=== PATIENT | male | born 1935 | race Caucasian/White ===

== ENCOUNTER 2016-08-19 12:55 | Inpatient (IN) | payer MEDICARE, BC ==
[~2016-08-19] VITALS: Ht 175.3 cm; Wt 65.9 kg
[2016-08-19] VITALS (9 sets, daily range): BP systolic 105–136; BP diastolic 70–79; PULSE 85–88; RESP 14–18; TEMP 97.6–98.6; O2SAT 95–100
[~2016-08-19 12:55] MED LIST: ACIP20TA6 OR; ASPI81TA82 PO; BETH25TA PO; COLC1TAB7 PO; LISI-363 PO; PRED1 PO; PRED5TAB PO; TAMS0.4C67 PO; TRAM50TA PO; ULTR37.57 PO
[2016-08-19] MEDS ORDERED: SODIUM CHLOR 0.9% 1000 ML INJ 1,000 ML IV ONE (13:02)
--- NOTE | 2016-08-19 13:22 | RADRPT ---
EXAM DATE/TIME: 08/19/2016 12:59 [place] COMPARISON: No previous studies available for comparison. INDICATIONS : Congestion, shortness of breath with wheezing. MEDICAL HISTORY : Congestive heart failure. SURGICAL HISTORY : None. ENCOUNTER: Initial ACUITY: 3 days PAIN SCORE: 0/10 LOCATION: Bilateral chest FINDINGS: A single view of the chest demonstrates the lungs to be symmetrically aerated without evidence of mas s, infiltrate or effusion. The cardiomediastinal contours are unremarkable. Osseous structures are intact with significant arthritis of left acromioclavicular joint and impressive chondrocalcinosis. CONCLUSION: Normal examination. Bjorn Palma MD on August 19, 2016 at 13:21 Board Certified Radiologist. This report was verified electronically.
[2016-08-19 13:35] LABS: AUTOMATED NEUTROPHIL # 14.1 TH/MM3 (1.8-7.7); BASOPHIL % 0.2 % (0.0-2.0); EOSINOPHIL # 0.7 TH/MM3 (0-0.4); EOSINOPHIL % 3.9 % (0.0-4.0); HEMATOCRIT 38.1 % (39.0-51.0); HEMO FLAGS DIFF FINAL; LYMPH % 6.3 % (9.0-44.0); LYMPHOCYTE # 1.1 TH/MM3 (1.0-4.8); MEAN CELL VOLUME 90.6 FL (80.0-100.0); MEAN CORPUSCULAR HEMOGLOBIN 30.1 PG (27.0-34.0); MEAN CORPUSCULAR HGB CONC 33.2 % (32.0-36.0); NEUT % 80.6 % (16.0-70.0); PLATELET COUNT 227 TH/MM3 (150-450); RED CELL DISTRIBUTION WIDTH 16.2 % (11.6-17.2); WHITE BLOOD COUNT 17.4 TH/MM3 (4.0-11.0)
[2016-08-19 13:41] LABS: APTT (PATIENT) 32.9 SEC (24.3-30.1); INTERNATIONAL NORMALIZED RATIO 1.1 RATIO; PROTHROMBIN TIME - PATIENT 12.7 SEC (9.8-11.6)
[2016-08-19 13:53] LABS: ANION GAP 11 MEQ/L (5-15); AST (GOT) 25 U/L (15-37); BLOOD UREA NITROGEN 23 MG/DL (7-18); CHLORIDE 106 MEQ/L (98-107); GLOMERULAR FILTRATION RATE 64 ML/MIN (>89); MAGNESIUM 1.8 MG/DL (1.5-2.5); POTASSIUM 3.7 MEQ/L (3.5-5.1); SODIUM (NA) 141 MEQ/L (136-145)
[2016-08-19 13:58] LABS: ALKALINE PHOSPHATASE 91 U/L (45-117); ALT (GPT) 21 U/L (12-78); CREATINE KINASE 128 U/L (39-308)
[2016-08-19 14:15] LABS: CKMB 1.5 NG/ML (0.5-3.6)
[2016-08-19 14:26] LABS: BLOOD, URINE NEG (NEG); GLUCOSE,URINE NEG (NEG); KETONE, URINE NEG (NEG); NITRITE,URINE NEG (NEG); PH, URINE 5.5 (5.0-8.5); SQUAMOUS EPITHELIAL CELL URINE <1 /hpf (0-5); URINE COLOR YELLOW (YELLW/STRAW)
[2016-08-19] MEDS ORDERED: D31000CA (14:26)
[2016-08-19] MEDS ORDERED: PROT40TA PO (14:26)
[2016-08-19] MEDS ORDERED: MULT-65 PO (14:26)
[2016-08-19] MEDS ORDERED: ATOR10TA15 PO (14:26)
[2016-08-19] MEDS ORDERED: CLOP75TA PO (14:26)
[2016-08-19] MEDS ORDERED: NYST15T TOPICAL (14:26)
[2016-08-19] MEDS ORDERED: DULC100C PO (14:26)
[2016-08-19] MEDS ORDERED: CARB25TA9 PO (14:26)
[2016-08-19] MEDS ORDERED: DEXT1CAP5 PO (14:26)
[2016-08-19] MEDS ORDERED: ACET1CAP18 PO (14:26)
[2016-08-19] MEDS ORDERED: MILKSUS PO (14:26)
[2016-08-19 14:29] LABS: COMMENT (UR) CATH-CULT NOT IND; CULTURE IF INDICATED CATH CULTURE NOT IND
--- NOTE | 2016-08-19 14:36 | PD ---
HPI Chief Complaint: General Weakness Time Seen by Provider: 13:02 Travel History International Travel<30 days: No Contact w/Intl Traveler<30days: No Traveled to known affect area: No History of Present Illness HPI 80-year-old male presents with generalized weakness and cough. He is a poor historian and history is limited. Records state that he has also had increasing dysphasia. His records show blood work from a couple days ago with hypoglycemia 49 and he states he is not a diabetic. He does deny any chest pain or other concurrent complaints but history is limited. PFSH Past Medical History Arthritis: Yes (osteo and gout) Blood Disorders: No Anxiety: Yes Depression: Yes Cancer: No Cardiovascular Problems: No Cerebrovascular Accident: Yes Diabetes: No Diminished Hearing: No Endocrine: No Gastrointestinal Disorders: Yes GERD: Yes Glaucoma: No Gout: Yes (SUDO GOUT) Genitourinary: No Hepatitis: No Hiatal Hernia: Yes Hypertension: Yes Immune Disorder: No Neurologic: No Parkinson's Disease: Yes Psychiatric: Yes Reproductive: No Respiratory: No Immunizations Current: Yes Thyroid Disease: No Past Surgical History Abdominal Surgery: Yes (right inquinal hernia repair) Cholecystectomy: Yes Eye Surgery: Yes (b/l cataracts) Oral Surgery: Yes (tonsillectomy) Pacemaker: No Tonsillectomy: Yes ( CHILD) Other Surgery: Yes (RIGHT HERNIA REPAIR) Social History Alcohol Use: No Tobacco Use: No Substance Use: No Allergies-Medications (Allergen,Severity, Reaction): Coded Allergies: Cipro (Verified Allergy, Mild, RASH, 08/19/16) E-Mycin (Verified Allergy, Mild, DIARRHEA, 08/19/16) Keflex (Verified Allergy, Mild, UNKNOWN, 08/19/16) causes rash Reported Meds & Prescriptions Reported Meds & Active Scripts Active Reported Milk of Magnesia Liq (Magnesium Hydroxide) 400 Mg/5 Ml Susp 30 Ml PO ONCE Clopidogrel (Clopidogrel Bisulfate) 75 Mg Tab 75 Mg PO DAILY D3 (Cholecalciferol) 1,000 Unit Cap Protonix (Pantoprazole Sodium) 40 Mg Tab 40 Mg PO BID Tylenol (Acetaminophen) 325 Mg Cap 325 Mg PO Q6H PRN Dulcolax Stool Softener (Docusate Sodium) 100 Mg Cap 100 Mg PO BID Carbidopa-Levodopa 25-100 Mg Tab 1 Tab PO Q8HR Atorvastatin (Atorvastatin Calcium) 10 Mg Tab 10 Mg PO HS Nystatin Topical (Nystatin) 100,000 unit/gm Cream 1 Applic TOPICAL Q6HR Multi-Vitamin Daily (Multiple Vitamin) 1 Tab Tab 1 Tab PO DAILY Robitussin Cough Chest Congestion (Dextromethorphan-Guaifenesin) 10-200 Mg Cap 1 Cap PO Q4H PRN Review of Systems Except as stated in HPI: all other systems reviewed are Neg Physical Exam Narrative GENERAL: Well-nourished, well-developed patient. Frequent cough noted SKIN: Warm and dry. HEAD: Normocephalic and atraumatic. EYES: No injection or drainage. ENT: No nasal drainage noted. NECK: Supple, trachea midline. CARDIOVASCULAR: Regular rate and rhythm RESPIRATORY: Breath sounds equal bilaterally. No accessory muscle use. GASTROINTESTINAL: Abdomen soft, non-tender, nondistended. NEUROLOGICAL: Awake. Prior stroke deficit noted. Normal speech. Data Data Last Documented VS Vital Signs Date Time Temp Pulse Resp B/P Pulse Ox O2 Delivery O2 Flow Rate FiO2 08/19/16 14:15 86 18 136/78 100 Room Air 08/19/16 12:58 98.6 Orders Electrocardiogram (08/19/16 13:02) Complete Blood Count With Diff (08/19/16 13:02) Comprehensive Metabolic Panel (08/19/16 13:02) Prothrombin Time / Inr (Pt) (08/19/16 13:02) Act Partial Throm Time (Ptt) (08/19/16 13:02) Lactic Acid Sepsis Protocol (08/19/16 13:02) Magnesium (Mg) (08/19/16 13:02) Phosphorus (Po4) (08/19/16 13:02) Ckmb (Isoenzyme) Profile (08/19/16 13:02) Troponin I (08/19/16 13:02) Urinalysis - C+S If Indicated (08/19/16 13:02) Influenzae A/B Antigen (08/19/16 13:02) Blood Culture (08/19/16 13:02) Chest, Single Ap (08/19/16 13:02) Blood Glucose (08/19/16 13:02) Ecg Monitoring (08/19/16 13:02) Iv Access Insert/Monitor (08/19/16 13:02) Oximetry (08/19/16 13:02) Sodium Chlor 0.9% 1000 Ml Inj (Ns 1000 M (08/19/16 13:02) Urinary Catheter Insert/Apply (08/19/16 13:51) CKMB (08/19/16 13:11) CKMB% (08/19/16 13:11) Aspirin (Aspirin) (08/19/16 14:45) Admit Order (Ed Use Only) (08/19/16 14:38) Labs Laboratory Tests Test 08/19/16 08/19/16 13:11 14:09 White Blood Count 17.4 TH/MM3 Red Blood Count 4.20 MIL/MM3 Hemoglobin 12.6 GM/DL Hematocrit 38.1 % Mean Corpuscular Volume 90.6 FL Mean Corpuscular Hemoglobin 30.1 PG Mean Corpuscular Hemoglobin 33.2 % Concent Red Cell Distribution Width 16.2 % Platelet Count 227 TH/MM3 Mean Platelet Volume 8.6 FL Neutrophils (%) (Auto) 80.6 % Lymphocytes (%) (Auto) 6.3 % Monocytes (%) (Auto) 9.0 % Eosinophils (%) (Auto) 3.9 % Basophils (%) (Auto) 0.2 % Neutrophils # (Auto) 14.1 TH/MM3 Lymphocytes # (Auto) 1.1 TH/MM3 Monocytes # (Auto) 1.6 TH/MM3 Eosinophils # (Auto) 0.7 TH/MM3 Basophils # (Auto) 0.0 TH/MM3 CBC Comment DIFF FINAL Differential Comment Prothrombin Time 12.7 SEC Prothromb Time International 1.1 RATIO Ratio Activated Partial 32.9 SEC Thromboplast Time Sodium Level 141 MEQ/L Potassium Level 3.7 MEQ/L Chloride Level 106 MEQ/L Carbon Dioxide Level 24.0 MEQ/L Anion Gap 11 MEQ/L Blood Urea Nitrogen 23 MG/DL Creatinine 1.10 MG/DL Estimat Glomerular Filtration 64 ML/MIN Rate Random Glucose 82 MG/DL Lactic Acid Level 1.4 mmol/L Calcium Level 8.8 MG/DL Phosphorus Level 3.1 MG/DL Magnesium Level 1.8 MG/DL Total Bilirubin 1.0 MG/DL Aspartate Amino Transf 25 U/L (AST/SGOT) Alanine Aminotransferase 21 U/L (ALT/SGPT) Alkaline Phosphatase 91 U/L Total Creatine Kinase 128 U/L Creatine Kinase MB 1.5 NG/ML Troponin I 0.64 NG/ML Total Protein 6.6 GM/DL Albumin 2.9 GM/DL Urine Color YELLOW Urine Turbidity CLEAR Urine pH 5.5 Urine Specific [place] 1.024 Urine Protein 30 mg/dL Urine Glucose (UA) NEG mg/dL Urine Ketones NEG mg/dL Urine Occult Blood NEG Urine Nitrite NEG Urine Bilirubin NEG Urine Urobilinogen LESS THAN 2.0 MG/DL Urine Leukocyte Esterase TRACE Urine RBC LESS THAN 1 /hpf Urine WBC 1 /hpf Urine Squamous Epithelial <1 /hpf Cells Microscopic Urinalysis Comment CATH-CULT NOT IND MDM Medical Decision Making Medical Screen Exam Complete: Yes Emergency Medical Condition: Yes Medical Record Reviewed: Yes (past history confirmed) Interpretation(s) EKG shows normal sinus rhythm at 90, right bundle branch block, ST depression laterally which is new from 2009 CBC & BMP Diagram 08/19/16 13:11 Last 24 hours Impressions Chest X-Ray 08/19/16 1302 Signed Impressions: Service Date/Time: Friday, August 19, 2016 12:59 - CONCLUSION: Normal examination. Bjorn Palma MD Troponin is elevated at 0.64 Differential Diagnosis UTI, pneumonia, anemia, renal failure, NV, URI Narrative Course Will check blood work, urinalysis, chest x-ray and reevaluate ER workup shows elevated troponin. EKG is non-STEMI. Will dose with aspirin. Pain free now. He also has elevated white count without infection source. He' ll be admitted to the hospital for further care through his primary Dr. Ace Physician Communication Physician Communication Dr. Ace agrees to admission Diagnosis Primary Impression: NSTEMI (non-ST elevated myocardial infarction) Additional Impressions: Weakness Cough Admitting Information Admitting Physician Requests: Admit Sarah Silvestre MD Aug 19, 2016 14:36
[2016-08-19] MEDS ORDERED: ASPIRIN 325 MG TAB PO ONE (14:45)
[2016-08-19] MEDS ORDERED: BISACODYL 10 MG SUPP PR PRN (17:30)
[2016-08-19] MEDS ORDERED: MAGNESIUM HYDROXIDE SUSP 30 ML CUP PO PRN (17:30)
[2016-08-19] MEDS ORDERED: ONDANSETRON HCL 4 MG/2 ML VIAL IVP PRN (17:30)
[2016-08-19] MEDS ORDERED: ACETAMINOPHEN 325 MG TAB PO PRN (17:30)
[2016-08-19] MEDS ORDERED: SODIUM CHLORIDE 0.9% FLUSH 5 ML FLUSH FLUSH PRN (17:30)
[2016-08-19] MEDS ORDERED: ZOLPIDEM TARTRATE 5 MG TAB PO PRN (17:30)
[2016-08-19] MEDS ORDERED: NALOXONE HCL 0.4 MG/ML AMP IV PRN (17:30)
[2016-08-19] MEDS ORDERED: cloNIDine HCL 0.1 MG TAB PO PRN (17:45)
[2016-08-19] MEDS ORDERED: ENALAPRILAT 2.5 MG/2 ML VIAL IV PUSH PRN (17:45)
[2016-08-19] MEDS ORDERED: Vancomycin Consult Pharmacy 1 EA XX SCH (17:45)
[2016-08-19] MEDS ORDERED: PANTOPRAZOLE SODIUM 40 MG VIAL IV PUSH SCH (17:45)
[2016-08-19] MEDS: DEXT 5%-NACL 0.9% 1000 ML INJ 1,000 ML IV SCH (17:48)
[2016-08-19] MEDS: DOXYCYCLINE INJ 100 MG in SODIUM CHLORIDE 0.9% INJ 100 ML IV SCH (17:55)
[2016-08-19] MEDS ORDERED: VANCOMYCIN 1,000 MG/NS 250 ML IV STA ×2 (18:00)
[2016-08-19] MEDS: HEPARIN SODIUM - SQ 10,000 UNITS/ML VIAL SQ SCH (18:21)
[2016-08-19] MEDS: NITROGLYCERIN 2% OINT 1 GM PACKET TOPICAL SCH (18:22)
[2016-08-19] MEDS ORDERED: VANCOMYCIN 500 MG/NS 100 ML IV ONE ×2 (20:00)
[2016-08-19] MEDS: SODIUM CHLORIDE 0.9% FLUSH 5 ML FLUSH FLUSH SCH (21:09)
[2016-08-19] MEDS: DOCUSATE SODIUM 100 MG CAP PO SCH (21:09)
[2016-08-19] MEDS: PANTOPRAZOLE SOD 40 MG DELAYED RELEASE TAB PO SCH (21:10)
[2016-08-19] MEDS: ATORVASTATIN 10 MG TAB PO SCH (21:10)
[2016-08-19] MEDS: CARBIDOPA/LEVODOPA 25 MG/100 MG TAB PO SCH (21:10)
[2016-08-20] VITALS (9 sets, daily range): BP systolic 117–142; BP diastolic 68–92; PULSE 75–101; RESP 16–21; TEMP 97.6–98.4; O2SAT 96–99
[2016-08-20] MEDS: NITROGLYCERIN 2% OINT 1 GM PACKET TOPICAL SCH ×4 (00:45→17:46)
[2016-08-20] MEDS: guaiFENesin/DEXTROMETHORPHAN 200 MG/20 MG/10 ML CUP PO PRN ×2 (00:45→08:26)
[2016-08-20] MEDS: DEXT 5%-NACL 0.9% 1000 ML INJ 1,000 ML IV SCH ×2 (05:04→17:46)
[2016-08-20] MEDS: CARBIDOPA/LEVODOPA 25 MG/100 MG TAB PO SCH ×3 (05:05→22:02)
[2016-08-20] MEDS: HEPARIN SODIUM - SQ 10,000 UNITS/ML VIAL SQ SCH ×2 (05:52→17:46)
[2016-08-20] MEDS: DOXYCYCLINE INJ 100 MG in SODIUM CHLORIDE 0.9% INJ 100 ML IV SCH ×2 (07:23→17:46)
[2016-08-20 07:57] LABS: AUTOMATED NEUTROPHIL # 11.3 TH/MM3 (1.8-7.7); BASOPHIL # 0.2 TH/MM3 (0-0.2); BASOPHIL % 1.6 % (0.0-2.0); EOSINOPHIL # 0.6 TH/MM3 (0-0.4); HEMATOCRIT 35.5 % (39.0-51.0); HEMO FLAGS DIFF FINAL; LYMPH % 5.7 % (9.0-44.0); LYMPHOCYTE # 0.8 TH/MM3 (1.0-4.8); MEAN CELL VOLUME 91.3 FL (80.0-100.0); MEAN CORPUSCULAR HEMOGLOBIN 29.8 PG (27.0-34.0); MEAN CORPUSCULAR HGB CONC 32.7 % (32.0-36.0); MONO % 8.2 % (0.0-8.0); NEUT % 80.5 % (16.0-70.0); PLATELET COUNT 233 TH/MM3 (150-450); RED BLOOD COUNT 3.89 MIL/MM3 (4.50-5.90); RED CELL DISTRIBUTION WIDTH 16.1 % (11.6-17.2)
[2016-08-20 08:11] LABS: BICARBONATE 23.1 MEQ/L (21.0-32.0); POTASSIUM 3.9 MEQ/L (3.5-5.1)
--- NOTE | 2016-08-20 08:11 | MB ---
cc: [facility] DATE OF CONSULTATION 08/20/2016 REASON FOR CONSULTATION Elevated troponin. HISTORY OF PRESENT ILLNESS This is an 80-year-old gentleman who is a poor historian presents from the assisted-living facility with symptoms of generalized overall decline in functional ability and increased dysphasia. Most of the history is obtained from chart records both from the assisted living facility in addition to the emergency department notes. The patient does answer questions, but does not recall why he is here. He denies any chest pain or shortness of breath. He has no prior history of any known heart issues. 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 He had initial labs drawn which showed mildly elevated troponin. Electrocardiogram showed a new right bundle branch block compared to 2010. Otherwise, he is not having any generalized complaints. PAST MEDICAL HISTORY 1. Osteoarthritis 2. Gout 3. CVA 4. Hypertension 5. Gastroesophageal reflux disease 6. Parkinson's 7. Vertebral fracture 8. Right inguinal hernia repair 9. Cataracts 10. Tonsillectomy SOCIAL HISTORY Denies alcohol, tobacco or drug use. ALLERGIES CIPRO, ERYTHROMYCIN, AND KEFLEX. MEDICATIONS 1. Milk of Magnesia 2. Plavix 3. Protonix 4. Carbidopa/Levodopa 5. Atorvastatin 6. Nystatin 7. Multivitamin REVIEW OF SYSTEMS A 12-point review of systems was performed and is negative unless otherwise noted in the history of present illness although limited. PHYSICAL EXAM VITAL SIGNS: Temperature 98, pulse 78, blood pressure 121/68 mmHg. GENERAL: Alert in no acute distress. HEENT: The exam shows the pupils are reactive to light and accommodation. Extraocular movements are intact. NECK: No elevation of jugular venous distension. No thyromegaly or lymphadenopathy. No carotid bruits. LUNGS: Clear to auscultation bilaterally. CARDIOVASCULAR: Regular rate and rhythm, 1/6 systolic murmur left sternal border. ABDOMEN: Exam is nontender and nondistended with good bowel sounds. No hepatosplenomegaly. EXTREMITIES: No clubbing, cyanosis or edema. Good peripheral pulses. NEUROLOGIC: Cranial nerves intact. Motor and sensory appear to be grossly intact. LABORATORY DATA Sodium 141, potassium 2.7, chloride is 106, creatinine is 1.1, troponin 0.64. Hemoglobin is 12.6, WBC 15.4, platelet count 227. Electrocardiogram shows first-degree AV block, sinus rhythm. Right bundle-branch block. No significant ischemic changes. ASSESSMENT 1. [id number] [place]. 2. Hypertension 3. Stroke 4. Right bundle-branch block PLAN The patient has no prior history of a known heart disease. Denies any active chest pain or shortness of breath. His main complaint is generalized weakness. He does have a change in his electrocardiogram since 2009, although he has no significant ischemic changes. He seems to be a poor candidate for any potential invasive strategy. Given his troponin, we will order for a Lexiscan. This is just to determine any significant ischemic burden, although the likelihood of proceeding forward with a heart catheterization is low unless the stress test was severely abnormal. We may also discuss the case with Dr. Ace his primary care and/or family that is available at a later time. MD MARTINE Chamberlain/ANDRE /7:43 AM /8:00 AM
--- NOTE | 2016-08-20 08:19 | HHI.HP ---
History of Present Illness Primary Care Physician Fer Ace MD Admission Diagnosis weakness Diagnoses: (1) Weakness (2) Cough (3) NSTEMI (non-ST elevated myocardial infarction) History of Present Illness 80 Y CM. GENERAL DECLINE OVER THE LAST YEAR. AT [facility] NOW. RECURRENT BRONCHITIS LAST MONTH. FAILED SNF ABX TREATMENT. PT WITH INCREASED GENERAL WEAKNESS AND SENT TO ER AND FOUND WITH HCAP AND NSTEMI. I WAS CALLED BY THE ER MD FOR ADMIT. PT OBVIOUSLY WEAKER THAN USUAL. C/O COUGH AND CONGESTION AND ASKING FOR COUGH SYRUP SO HE CAN DC HOME. Sepsis Criteria SIRS Criteria (2 or more): WBC > 02162, < 4000 or > 10% bands Review of Systems ROS Limitations: Clinical Condition, Altered Mental Status, Hearing Impaired, Poor Historian Except as stated in HPI: all other systems reviewed are Neg Past Family Social History Allergies: Coded Allergies: Cipro (Verified Allergy, Mild, RASH, 08/19/16) E-Mycin (Verified Allergy, Mild, DIARRHEA, 08/19/16) Keflex (Verified Allergy, Mild, UNKNOWN, 08/19/16) causes rash Past Medical History Past Medical History Arthritis: Yes (osteo and gout) Blood Disorders: No Anxiety: Yes Depression: Yes Cancer: No Cardiovascular Problems: No Cerebrovascular Accident: Yes Diabetes: No Diminished Hearing: No Endocrine: No Gastrointestinal Disorders: Yes GERD: Yes Glaucoma: No Gout: Yes (SUDO GOUT) Genitourinary: No Hepatitis: No Hiatal Hernia: Yes Hypertension: Yes Immune Disorder: No Neurologic: No Parkinson's Disease: Yes Psychiatric: Yes Reproductive: No Respiratory: No Immunizations Current: Yes Thyroid Disease: No Past Surgical History Abdominal Surgery: Yes (right inquinal hernia repair) Cholecystectomy: Yes Eye Surgery: Yes (b/l cataracts) Oral Surgery: Yes (tonsillectomy) Pacemaker: No Tonsillectomy: Yes ( CHILD) Other Surgery: Yes (RIGHT HERNIA REPAIR) Social History Alcohol Use: No Tobacco Use: No Substance Use: No Allergies-Medications Allergies-Medications (Allergen,Severity, Reaction): Coded Allergies: Cipro (Verified Allergy, Mild, RASH, 08/19/16) E-Mycin (Verified Allergy, Mild, DIARRHEA, 08/19/16) Keflex (Verified Allergy, Mild, UNKNOWN, 08/19/16) causes rash Reported Meds & Prescriptions Reported Meds & Active Scripts Active Reported Milk of Magnesia Liq (Magnesium Hydroxide) 400 Mg/5 Ml Susp 30 Ml PO ONCE Clopidogrel (Clopidogrel Bisulfate) 75 Mg Tab 75 Mg PO DAILY D3 (Cholecalciferol) 1,000 Unit Cap Protonix (Pantoprazole Sodium) 40 Mg Tab 40 Mg PO BID Tylenol (Acetaminophen) 325 Mg Cap 325 Mg PO Q6H PRN Dulcolax Stool Softener (Docusate Sodium) 100 Mg Cap 100 Mg PO BID Carbidopa-Levodopa 25-100 Mg Tab 1 Tab PO Q8HR Atorvastatin (Atorvastatin Calcium) 10 Mg Tab 10 Mg PO HS Nystatin Topical (Nystatin) 100,000 unit/gm Cream 1 Applic TOPICAL Q6HR Multi-Vitamin Daily (Multiple Vitamin) 1 Tab Tab 1 Tab PO DAILY Robitussin Cough Chest Congestion (Dextromethorphan-Guaifenesin) 10-200 Mg Cap 1 Cap PO Q4H PRN Past Surgical History [place] Reported Medications Current Medications Medications (Trade) Dose Ordered Sig/Nai Route Start Time Stop Time Status Last Admin (Tylenol) 325 mg Q6H PRN PO 08/19/16 17:30 (Lipitor) 10 mg HS PO 08/19/16 21:00 08/19/16 21:10 (Sinemet 25-100 Mg) 1 tab Q8HR PO 08/19/16 22:00 08/19/16 21:10 (Plavix) 75 mg DAILY PO 08/20/16 09:00 (Colace) 100 mg BID PO 08/19/16 21:00 08/19/16 21:09 (Protonix) 40 mg BID PO 08/19/16 21:00 08/19/16 21:10 (Robitussin Dm 200-20 Mg/10 ml Liq) 10 ml Q4H PRN PO 08/19/16 18:00 08/20/16 00:45 (NS Flush) 2 ml UNSCH PRN FLUSH 08/19/16 17:30 (NS Flush) 2 ml BID FLUSH 08/19/16 21:00 08/19/16 21:09 (Tylenol) 650 mg Q4H PRN PO 08/19/16 17:30 (Zofran Inj) 4 mg Q6H PRN IVP 08/19/16 17:30 (Dulcolax Supp) 10 mg DAILY PRN [place] 08/19/16 17:30 (Milk Of Magnkedar Liq) 30 ml Q12H PRN PO 08/19/16 17:30 (Ambien) 5 mg HS PRN PO 08/19/16 17:30 (Heparin Inj) 5,000 units Q12H SQ 08/19/16 18:00 08/20/16 05:52 (Narcan Inj) 0.4 mg UNSCH PRN IV 08/19/16 17:30 ([place] 5-325 Mg) 1 tab Q4H PRN PO 08/19/16 17:45 Clonidine 0.1 mg 0.1 mg Q6H PRN PO 08/19/16 17:45 (D5W-NS 1000 ml Inj) 1,000 ml @ 84 mls/hr [id number] IV 08/19/16 18:00 08/19/16 17:48 (Vasotec Inj) 2.5 mg Q6H PRN IV PUSH 08/19/16 17:45 Nitroglycerin 1 inch 1 inch Q6HR TOPICAL 08/19/16 18:00 08/20/16 05:52 Doxycycline Hyclate 100 mg/ Sodium Chloride 100 ml @ 100 mls/hr Q12H IV 08/19/16 18:00 08/20/16 07:23 Pharmacy Profile Note 0 ml @ 0 mls/hr UNSCH XX 08/19/16 17:45 (Vancomycin Inj/ NS 500 ml Inj) 515 ml @ 257.5 mls/ hr Q24H IV 08/20/16 18:00 Miscellaneous Information SPECIFIC LAB TO BE ... ONCE ONCE XX 08/23/16 17:45 08/23/16 17:46 Family History NC Social History NO E/T/D, SNF RES Physical Exam Vital Signs Vital Signs Date Time Temp Pulse Resp B/P Pulse Ox O2 Delivery O2 Flow Rate FiO2 08/20/16 08:01 98.1 78 20 133/75 97 08/20/16 04:00 98.4 78 21 121/68 99 08/19/16 23:24 97.6 88 14 117/79 95 08/19/16 21:25 98 08/19/16 19:04 87 18 114/79 98 Room Air 08/19/16 17:34 85 16 114/79 100 Room Air 2/28/17 17:31 100 21 08/19/16 14:15 86 18 136/78 100 Room Air 08/19/16 13:14 96 08/19/16 13:02 86 18 105/70 96 Room Air 08/19/16 13:02 18 96 08/19/16 12:58 98.6 85 16 105/70 97 Physical Exam GENERAL: frail, emaciated, chronically ill appearing SKIN: No rashes, ecchymoses or lesions. Cool and dry. HEAD: Atraumatic. Normocephalic. No temporal or scalp tenderness. EYES: Pupils equal round and reactive. Extraocular motions intact. No scleral icterus. No injection or drainage. ENT: Nose without bleeding, purulent drainage or septal hematoma. Throat without erythema, tonsillar hypertrophy or exudate. Uvula midline. Airway patent. NECK: Trachea midline. No JVD or lymphadenopathy. Supple, nontender, no meningeal signs. CARDIOVASCULAR: Regular rate and rhythm without murmurs, gallops, or rubs. RESPIRATORY: CRACKLES AT THE BASES, B RONCHI TO APICES, HARSH CONGESTED WEAK COUGH GASTROINTESTINAL: Abdomen soft, non-tender, nondistended. No hepato-splenomegaly , or palpable masses. No guarding. MUSCULOSKELETAL: Extremities without clubbing, cyanosis, or edema. No joint tenderness, effusion, or edema noted. No calf tenderness. Negative Homans sign bilaterally. NEUROLOGICAL: Awake and alert. Cranial nerves II through XII intact. Motor and sensory grossly within normal limits. 1 out of 5 muscle strength in all muscle groups. Normal speech. Laboratory Laboratory Tests Test 08/19/16 08/19/16 08/20/16 13:11 14:09 07:30 White Blood Count 17.4 14.0 Red Blood Count 4.20 3.89 Hemoglobin 12.6 11.6 Hematocrit 38.1 35.5 Mean Corpuscular Volume 90.6 91.3 Mean Corpuscular Hemoglobin 30.1 29.8 Mean Corpuscular Hemoglobin 33.2 32.7 Concent Red Cell Distribution Width 16.2 16.1 Platelet Count 227 233 Mean Platelet Volume 8.6 8.7 Neutrophils (%) (Auto) 80.6 80.5 Lymphocytes (%) (Auto) 6.3 5.7 Monocytes (%) (Auto) 9.0 8.2 Eosinophils (%) (Auto) 3.9 4.0 Basophils (%) (Auto) 0.2 1.6 Neutrophils # (Auto) 14.1 11.3 Lymphocytes # (Auto) 1.1 0.8 Monocytes # (Auto) 1.6 1.1 Eosinophils # (Auto) 0.7 0.6 Basophils # (Auto) 0.0 0.2 CBC Comment DIFF FINAL DIFF FINAL Differential Comment Prothrombin Time 12.7 Prothromb Time International 1.1 Ratio Activated Partial 32.9 Thromboplast Time Sodium Level 141 140 Potassium Level 3.7 3.9 Chloride Level 106 106 Carbon Dioxide Level 24.0 23.1 Anion Gap 11 11 Blood Urea Nitrogen 23 22 Creatinine 1.10 0.95 Estimat Glomerular Filtration 64 76 Rate Random Glucose 82 94 Lactic Acid Level 1.4 Calcium Level 8.8 8.8 Phosphorus Level 3.1 Magnesium Level 1.8 Total Bilirubin 1.0 Aspartate Amino Transf 25 (AST/SGOT) Alanine Aminotransferase 21 (ALT/SGPT) Alkaline Phosphatase 91 Total Creatine Kinase 128 Creatine Kinase MB 1.5 Troponin I 0.64 Total Protein 6.6 Albumin 2.9 Urine Color YELLOW Urine Turbidity CLEAR Urine pH 5.5 Urine Specific [place] 1.024 Urine Protein 30 Urine Glucose (UA) NEG Urine Ketones NEG Urine Occult Blood NEG Urine Nitrite NEG Urine Bilirubin NEG Urine Urobilinogen LESS THAN 2.0 Urine Leukocyte Esterase TRACE Urine RBC LESS THAN 1 Urine WBC 1 Urine Squamous Epithelial <1 Cells Microscopic Urinalysis Comment CATH-CULT NOT IND Date/Time Procedure Status Source Growth 08/20/16 07:30 Aerobic Blood Culture Received Blood Peripheral Pending 08/20/16 07:30 Anaerobic Blood Culture Received Blood Peripheral Pending 08/19/16 13:15 Influenza Types A,B Antigen (LEX) - Final Complete Nasal Aspirate NEGATIVE FOR FLU A AND B ANTIGEN.... Result Diagram: 08/20/16 0730 08/20/16 0730 Imaging Last 72 hours Impressions Chest X-Ray 08/19/16 1302 Signed Impressions: Service Date/Time: Friday, August 19, 2016 12:59 - CONCLUSION: Normal examination. Bjorn Palma MD Assessment and Plan Problem List: (1) Cough Status: Acute (2) Weakness Status: Acute (3) NSTEMI (non-ST elevated myocardial infarction) Status: Acute Assessment and Plan NSTEMI HCAP LEUKOCYTOSIS/SIRS [place] HTN CVA PSEUDOGOUT PLAN: ntg OINT IV ABX IVF IV PROTONIX SERIAL BIOMARKER CARDIOLOGY CONSULT NPO FOR NOW STRESS TEST HEPARIN BID PLEASE SEE MY ORDERS. OBS [facility] Aug 20, 2016 08:19
[2016-08-20] MEDS: DOCUSATE SODIUM 100 MG CAP PO SCH ×2 (08:20→22:02)
[2016-08-20] MEDS: PANTOPRAZOLE SOD 40 MG DELAYED RELEASE TAB PO SCH ×2 (08:20→21:00)
[2016-08-20] MEDS: SODIUM CHLORIDE 0.9% FLUSH 5 ML FLUSH FLUSH SCH ×2 (08:20→21:00)
[2016-08-20] MEDS ORDERED: CLOPIDOGREL 75 MG TAB PO SCH (09:00)
--- NOTE | 2016-08-20 11:28 | EKG ---
Date Performed: 08/19/2016 Time Performed: 13:14:58 PTAGE: 80 years EKG: Sinus rhythm WITH OCCASIONAL VENTRICULAR PREMATURE COMPLEXES MARKED RIGHT AXIS DEVIATION RIGHT BUNDLE BRANCH BLOC K ABNORMAL ECG PREVIOUS TRACING : 10/25/2009 01.33 DOCTOR: Bjorn Monsalve Interpretating Date/Time 08/20/2016 11:26:29
[2016-08-20] MEDS: VANCOMYCIN 1,500 MG/NS 500 ML IV SCH ×2 (17:47)
[2016-08-20] MEDS: ATORVASTATIN 10 MG TAB PO SCH (22:02)
[2016-08-21] VITALS (9 sets, daily range): BP systolic 109–147; BP diastolic 68–93; PULSE 61–103; RESP 17–20; TEMP 97.4–98.3; O2SAT 94–98
[2016-08-21] MEDS: NITROGLYCERIN 2% OINT 1 GM PACKET TOPICAL SCH ×4 (02:24→18:15)
[2016-08-21] MEDS: DEXT 5%-NACL 0.9% 1000 ML INJ 1,000 ML IV SCH ×2 (05:45→21:56)
[2016-08-21] MEDS: HEPARIN SODIUM - SQ 10,000 UNITS/ML VIAL SQ SCH (05:46)
[2016-08-21] MEDS: CARBIDOPA/LEVODOPA 25 MG/100 MG TAB PO SCH ×3 (05:47→21:54)
[2016-08-21 06:36] LABS: AUTOMATED NEUTROPHIL # 9.8 TH/MM3 (1.8-7.7); BASOPHIL # 0.1 TH/MM3 (0-0.2); BASOPHIL % 0.6 % (0.0-2.0); EOSINOPHIL # 0.5 TH/MM3 (0-0.4); EOSINOPHIL % 4.4 % (0.0-4.0); HEMATOCRIT 34.3 % (39.0-51.0); HEMO FLAGS DIFF FINAL; LYMPHOCYTE # 0.9 TH/MM3 (1.0-4.8); MEAN CELL VOLUME 90.1 FL (80.0-100.0); MEAN CORPUSCULAR HEMOGLOBIN 30.8 PG (27.0-34.0); MEAN CORPUSCULAR HGB CONC 34.2 % (32.0-36.0); MONO % 8.9 % (0.0-8.0); NEUT % 79.1 % (16.0-70.0); PLATELET COUNT 241 TH/MM3 (150-450); RED BLOOD COUNT 3.81 MIL/MM3 (4.50-5.90); RED CELL DISTRIBUTION WIDTH 16.3 % (11.6-17.2); WHITE BLOOD COUNT 12.4 TH/MM3 (4.0-11.0)
[2016-08-21 06:48] LABS: POTASSIUM 4.2 MEQ/L (3.5-5.1)
[2016-08-21] MEDS: DOXYCYCLINE INJ 100 MG in SODIUM CHLORIDE 0.9% INJ 100 ML IV SCH ×2 (07:26→17:38)
--- NOTE | 2016-08-21 08:12 | PD.CARD.PN ---
Subjective Subjective Remarks denies chest pain, SOB or palpitation. (Safia Dunlap) Objective Medications Current Medications Medications (Trade) Dose Ordered Sig/Nai Route Start Time Stop Time Status Last Admin (Tylenol) 325 mg Q6H PRN PO 08/19/16 17:30 (Lipitor) 10 mg HS PO 08/19/16 21:00 08/20/16 22:02 (Sinemet 25-100 Mg) 1 tab Q8HR PO 08/19/16 22:00 08/21/16 05:47 (Plavix) 75 mg DAILY PO 08/20/16 09:00 Hold 08/20/16 08:20 (Colace) 100 mg BID PO 08/19/16 21:00 08/20/16 22:02 (Protonix) 40 mg BID PO 08/19/16 21:00 08/20/16 21:00 (Robitussin Dm 200-20 Mg/10 ml Liq) 10 ml Q4H PRN PO 08/19/16 18:00 08/20/16 08:26 (NS Flush) 2 ml UNSCH PRN FLUSH 08/19/16 17:30 (NS Flush) 2 ml BID FLUSH 08/19/16 21:00 08/20/16 08:20 (Tylenol) 650 mg Q4H PRN PO 08/19/16 17:30 (Zofran Inj) 4 mg Q6H PRN IVP 08/19/16 17:30 (Dulcolax Supp) 10 mg DAILY PRN [place] 08/19/16 17:30 (Milk Of Magnesia Liq) 30 ml Q12H PRN PO 08/19/16 17:30 (Ambien) 5 mg HS PRN PO 08/19/16 17:30 (Heparin Inj) 5,000 units Q12H SQ 08/19/16 18:00 Hold 08/20/16 17:46 (Narcan Inj) 0.4 mg UNSCH PRN IV 08/19/16 17:30 ([place] 5-325 Mg) 1 tab Q4H PRN PO 08/19/16 17:45 Clonidine 0.1 mg 0.1 mg Q6H PRN PO 08/19/16 17:45 (D5W-NS 1000 ml Inj) 1,000 ml @ 84 mls/hr [id number] IV 08/19/16 18:00 08/21/16 05:45 (Vasotec Inj) 2.5 mg Q6H PRN IV PUSH 08/19/16 17:45 Nitroglycerin 1 inch 1 inch Q6HR TOPICAL 08/19/16 18:00 08/21/16 05:47 Doxycycline Hyclate 100 mg/ Sodium Chloride 100 ml @ 100 mls/hr Q12H IV 08/19/16 18:00 08/21/16 07:26 Pharmacy Profile Note 0 ml @ 0 mls/hr UNSCH XX 08/19/16 17:45 (Vancomycin Inj/ NS 500 ml Inj) 515 ml @ 257.5 mls/ hr Q24H IV 08/20/16 18:00 08/20/16 17:47 Miscellaneous Information SPECIFIC LAB TO BE ... ONCE ONCE XX 08/23/16 17:45 08/23/16 17:46 Vital Signs / I&O Vital Signs Date Time Temp Pulse Resp B/P Pulse Ox O2 Delivery O2 Flow Rate FiO2 08/21/16 07:48 97.4 97 17 116/77 96 08/21/16 04:07 97.5 103 20 147/93 98 08/21/16 04:03 66 08/21/16 00:27 98.0 102 20 136/89 96 08/20/16 20:48 97.6 101 20 142/92 96 08/20/16 16:34 98.2 97 16 117/78 98 08/20/16 15:52 77 08/20/16 15:00 75 08/20/16 14:55 78 08/20/16 14:00 120/71 08/20/16 11:58 98.0 91 18 122/71 96 Physical Exam GENERAL: SKIN: Warm and dry. HEAD: Atraumatic. Normocephalic. ENT: No nasal bleeding or discharge. NECK: Trachea midline. No JVD. CARDIOVASCULAR: Regular rate and rhythm. 1/6 systolic murmur heard at left sternal border RESPIRATORY: No accessory muscle use. Clear to auscultation. Breath sounds equal bilaterally. GASTROINTESTINAL: Abdomen soft, non-tender, nondistended. MUSCULOSKELETAL: Extremities without clubbing, cyanosis, or edema. No obvious deformities. NEUROLOGICAL: Awake and alert. No obvious cranial nerve deficits. . Normal speech. PSYCHIATRIC: Appropriate mood and affect Laboratory Laboratory Tests Test 08/21/16 05:57 White Blood Count 12.4 TH/MM3 Red Blood Count 3.81 MIL/MM3 Hemoglobin 11.7 GM/DL Hematocrit 34.3 % Mean Corpuscular Volume 90.1 FL Mean Corpuscular Hemoglobin 30.8 PG Mean Corpuscular Hemoglobin 34.2 % Concent Red Cell Distribution Width 16.3 % Platelet Count 241 TH/MM3 Mean Platelet Volume 8.5 FL Neutrophils (%) (Auto) 79.1 % Lymphocytes (%) (Auto) 7.0 % Monocytes (%) (Auto) 8.9 % Eosinophils (%) (Auto) 4.4 % Basophils (%) (Auto) 0.6 % Neutrophils # (Auto) 9.8 TH/MM3 Lymphocytes # (Auto) 0.9 TH/MM3 Monocytes # (Auto) 1.1 TH/MM3 Eosinophils # (Auto) 0.5 TH/MM3 Basophils # (Auto) 0.1 TH/MM3 CBC Comment DIFF FINAL Differential Comment Sodium Level 141 MEQ/L Potassium Level 4.2 MEQ/L Chloride Level 108 MEQ/L Carbon Dioxide Level 22.0 MEQ/L Anion Gap 11 MEQ/L Blood Urea Nitrogen 20 MG/DL Creatinine 1.00 MG/DL Estimat Glomerular Filtration 72 ML/MIN Rate Random Glucose 103 MG/DL Calcium Level 8.8 MG/DL Imaging Last Impressions Chest X-Ray 08/19/16 1302 Signed Impressions: Service Date/Time: Friday, August 19, 2016 12:59 - CONCLUSION: Normal examination. Bjorn Palma MD (Safia Dunlap) Assessment and Plan Problem List: (1) NSTEMI (non-ST elevated myocardial infarction) Assessment and Plan: 80 yo WM with Parkinson's disease, prior CVA with hemiplegia and HTN transported to ED yesterday after overall decline in function and dysphagia found to have NSTEMI. nuclear stress testing has been cancelled. Patient is not a good candidate for heart catheterization. tele reviewed, pulse rate up to 103, no concerning arrhythmia. (Safia Dunlap) Assessment and Plan conservative mgt. no stress testing. no events will sign off call with further questions thank you (Bjorn Monsalve MD) Safia Dunlap Aug 21, 2016 08:12 Bjorn Monsalve MD Aug 21, 2016 10:35
[2016-08-21] MEDS: PANTOPRAZOLE SOD 40 MG DELAYED RELEASE TAB PO SCH ×2 (08:57→21:00)
[2016-08-21] MEDS: DOCUSATE SODIUM 100 MG CAP PO SCH ×2 (08:57→21:00)
[2016-08-21] MEDS: SODIUM CHLORIDE 0.9% FLUSH 5 ML FLUSH FLUSH SCH ×2 (09:00→21:54)
--- NOTE | 2016-08-21 12:25 | HHI.FPPN ---
Subjective Remarks called w gross hematuria in andrea d/w RN NPO NOW PER ST PT V WEAK Objective Vitals Vital Signs Date Time Temp Pulse Resp B/P Pulse Ox O2 Delivery O2 Flow Rate FiO2 08/21/16 11:24 61 08/21/16 11:17 73 08/21/16 07:48 97.4 97 17 116/77 96 08/21/16 04:07 97.5 103 20 147/93 98 08/21/16 04:03 66 08/21/16 00:27 98.0 102 20 136/89 96 08/20/16 20:48 97.6 101 20 142/92 96 08/20/16 16:34 98.2 97 16 117/78 98 08/20/16 15:52 77 08/20/16 15:00 75 08/20/16 14:55 78 08/20/16 14:00 120/71 Result Diagram: 08/21/16 0557 08/21/16 0557 Objective Remarks GENERAL: SKIN: Warm and dry. HEAD: Atraumatic. Normocephalic. EYES: Pupils equal and round. No scleral icterus. No injection or drainage. ENT: No nasal bleeding or discharge. Mucous membranes pink and moist. NECK: Trachea midline. No JVD. CARDIOVASCULAR: Regular rate and rhythm. RESPIRATORY: No accessory muscle use. Clear to auscultation. Breath sounds equal bilaterally. GASTROINTESTINAL: Abdomen soft, non-tender, nondistended. Hepatic and splenic margins not palpable. MUSCULOSKELETAL: Extremities without clubbing, cyanosis, or edema. No obvious deformities. NEUROLOGICAL: Awake and alert. No obvious cranial nerve deficits. Motor grossly within normal limits. 1 out of 5 muscle strength in the arms and legs. Normal speech. PSYCHIATRIC: Appropriate mood and affect; insight and judgment normal. Medications and IVs Current Medications Medications (Trade) Dose Ordered Sig/Nai Route Start Time Stop Time Status Last Admin (Tylenol) 325 mg Q6H PRN PO 08/19/16 17:30 (Lipitor) 10 mg HS PO 08/19/16 21:00 08/20/16 22:02 (Sinemet 25-100 Mg) 1 tab Q8HR PO 08/19/16 22:00 08/21/16 05:47 (Plavix) 75 mg DAILY PO 08/20/16 09:00 Hold 08/20/16 08:20 (Colace) 100 mg BID PO 08/19/16 21:00 08/21/16 08:57 (Protonix) 40 mg BID PO 08/19/16 21:00 08/21/16 08:57 (Robitussin Dm 200-20 Mg/10 ml Liq) 10 ml Q4H PRN PO 08/19/16 18:00 08/20/16 08:26 (NS Flush) 2 ml UNSCH PRN FLUSH 08/19/16 17:30 (NS Flush) 2 ml BID FLUSH 08/19/16 21:00 08/21/16 09:00 (Tylenol) 650 mg Q4H PRN PO 08/19/16 17:30 (Zofran Inj) 4 mg Q6H PRN IVP 08/19/16 17:30 (Dulcolax Supp) 10 mg DAILY PRN [place] 08/19/16 17:30 (Milk Of Magnesia Liq) 30 ml Q12H PRN PO 08/19/16 17:30 (Ambien) 5 mg HS PRN PO 08/19/16 17:30 (Heparin Inj) 5,000 units Q12H SQ 08/19/16 18:00 Hold 08/20/16 17:46 (Narcan Inj) 0.4 mg UNSCH PRN IV 08/19/16 17:30 ([place] 5-325 Mg) 1 tab Q4H PRN PO 08/19/16 17:45 Clonidine 0.1 mg 0.1 mg Q6H PRN PO 08/19/16 17:45 (D5W-NS 1000 ml Inj) 1,000 ml @ 84 mls/hr [id number] IV 08/19/16 18:00 08/21/16 05:45 (Vasotec Inj) 2.5 mg Q6H PRN IV PUSH 08/19/16 17:45 Nitroglycerin 1 inch 1 inch Q6HR TOPICAL 08/19/16 18:00 08/21/16 05:47 Doxycycline Hyclate 100 mg/ Sodium Chloride 100 ml @ 100 mls/hr Q12H IV 08/19/16 18:00 08/21/16 07:26 Pharmacy Profile Note 0 ml @ 0 mls/hr UNSCH XX 08/19/16 17:45 (Vancomycin Inj/ NS 500 ml Inj) 515 ml @ 257.5 mls/ hr Q24H IV 08/20/16 18:00 08/20/16 17:47 Miscellaneous Information SPECIFIC LAB TO BE CHAN... ONCE ONCE XX 08/23/16 17:45 08/23/16 17:46 Urinary Catheter: Yes Assessment to: Continue Andrea insert reason: Measure Accurate Output A/P Assessment and Plan NSTEMI HCAP LEUKOCYTOSIS/SIRS HEMATURIA PARKINSONS HTN CVA PSEUDOGOUT PLAN: HOLD HEPARIN AND PLAVIX D/T HEMATURIA RENAL US UROLOGY CONSULT ntg OINT IV ABX IVF IV PROTONIX CARDIOLOGY SIGNED OFF. NPO PER ST PLEASE SEE MY ORDERS. OBS ADMIT PO[facility] PROGNOSIS [facility] MD Aug 21, 2016 12:24
--- NOTE | 2016-08-21 13:57 | RADRPT ---
EXAM DATE/TIME: 08/21/2016 12:52 [facility] COMPARISON: No previous studies available for comparison. INDICATIONS : Hematuria. MEDICAL HISTORY : Stroke. Hypertension. Parkinson's. Hiatal hernia. GERD. Arthritis. Gout. Measles. SURGICAL HISTORY : Tonsillectomy. Cholecystectomy. Total knee replacement, left. Bilateral carpal tunnel surgery. Right hernia repair. ENCOUNTER: Initial ACUITY: 1 day PAIN SCORE: 4/10 LOCATION: Bilateral flank MEASUREMENTS: RIGHT KIDNEY: 11.2 x 5.5 x 5.8 cm LEFT KIDNEY: 10.4 x 4.8 x 6.1 cm FINDINGS: RIGHT KIDNEY: Renal cortex is normal in thickness and echotexture. No hydronephrosis, stone, or mass other than cy st lower pole measuring 3.7 x 4.0 x 3.0 cm. LEFT KIDNEY: Renal cortex is normal in thickness and echotexture. No hydronephrosis, stone, or mass. BLADDER: There is a Nolen catheter in place. There is debris in the bladder could be hemorrhage. The bladder w all is thickened although its of uncertain significance it is decompressed with a Nolen catheter. CONCLUSION: Normal examination except for debris within the bladder and a thickened wall with a Nolen catheter of uncertain significance. Bjorn Palma MD on August 21, 2016 at 13:54 Board Certified Radiologist. This report was verified electronically.
--- NOTE | 2016-08-21 17:42 | MB ---
cc: [facility] DATE OF CONSULTATION: 08/21/2016 HISTORY OF PRESENT ILLNESS Mr. Aleman is an 80-year-old male from a [facility] and is a poor historian so the history and physical will be limited and will be based on findings in the chart. He was initially admitted with generalized weakness and cough with increasing dysphasia. During his hospitalization, a Nolen catheter was noted to be in place and he is unclear as to how long this has been in. I believe it was placed in at the [facility] and he presented with this. He started to develop some hematuria. He does state that he did have a history of prostate cancer and had radiation therapy in the past many years ago, he is unclear as to when it was. He also states he worked for [employer] for 38 years and he has six children. PAST MEDICAL HISTORY 1. History of prostate cancer treated with radiation therapy. 2. Arthritis. 3. Anxiety. 4. Depression. 5. CVA in the past. 6. GERD. 7. Gout. PAST SURGICAL HISTORY 1. Cholecystectomy. 2. Tonsillectomy. 3. Right inguinal hernia repair. 4. Cataracts. SOCIAL HISTORY Currently lives in a [facility]. Denies drinking, using drugs or any substance abuse. FAMILY HISTORY He is unclear if he has had any family history of prostate cancer. REVIEW OF SYSTEMS All other systems were reviewed and negative except per the HPI. PHYSICAL EXAMINATION VITAL SIGNS PRESENTLY: Temperature 97.5, heart rate 95, respiratory rate 17, 109/73. GENERAL: He is a well-developed, well-nourished 80-year-old male in no acute distress. HEENT: Normocephalic, atraumatic. NECK: Neck is supple. HEART: Heart rate is regular rate and rhythm. LUNGS: Breath sounds are bilaterally. ABDOMEN: Abdomen is soft, nontender, nondistended. GENITOURINARY: Uncircumcised phallus. A 16-Ecuadorean Nolen catheter in and irrigated at bedside. Nolen catheter was removed and replaced with a 24 three-way catheter, irrigated to clear at the bedside. Some clots removed. EXTREMITIES: Extremities show no evidence of cyanosis, clubbing or edema. LABORATORY DATA White count is 12.4, hemoglobin 11.7, hematocrit 34.3, platelet count 241. Sodium 141, potassium 4.2, chloride 108, CO2 22, BUN of 20, creatinine 1.0, glucose of 103. PT 12.7, INR 1.1, 32.92 PTT. Urinalysis on admission showed 30 protein, there was no blood at the time. IMAGING Renal ultrasound noted debris within the bladder and thickened wall with a Nolen catheter in place. ASSESSMENT An 80-year-old male with gross hematuria with indwelling Nolen catheter with a history of prostate cancer and radiation therapy in the past. 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 A 24 three-way Nolen catheter inserted at bedside, irrigated to Clear. RECOMMENDATIONS We will recommend irrigations p.r.n. to maintain clarity of urine, and we will review old records to determine if Nolen catheter was placed in the hospital or at the [facility]. Boy PRAJAPATI/BJF /4:07 PM /5:11 PM
[2016-08-21] MEDS: VANCOMYCIN 1,500 MG/NS 500 ML IV SCH ×2 (18:16)
[2016-08-21] MEDS: ATORVASTATIN 10 MG TAB PO SCH (21:54)
[2016-08-22] VITALS (9 sets, daily range): BP systolic 125–143; BP diastolic 67–84; PULSE 83–104; RESP 18–19; TEMP 97.4–98.7; O2SAT 94–97
[2016-08-22] MEDS: NITROGLYCERIN 2% OINT 1 GM PACKET TOPICAL SCH ×2 (01:11→05:39)
[2016-08-22] MEDS: ACETAMINOPHEN/HYDROcodone 325 MG/5 MG TAB PO PRN ×2 (01:12→21:25)
[2016-08-22] MEDS: DOXYCYCLINE INJ 100 MG in SODIUM CHLORIDE 0.9% INJ 100 ML IV SCH ×2 (05:39→18:38)
[2016-08-22] MEDS: CARBIDOPA/LEVODOPA 25 MG/100 MG TAB PO SCH ×3 (05:39→21:11)
[2016-08-22 07:46] LABS: AUTOMATED NEUTROPHIL # 10.2 TH/MM3 (1.8-7.7); BASOPHIL # 0.1 TH/MM3 (0-0.2); BASOPHIL % 0.9 % (0.0-2.0); EOSINOPHIL # 0.4 TH/MM3 (0-0.4); EOSINOPHIL % 2.8 % (0.0-4.0); HEMO FLAGS DIFF FINAL; LYMPH % 6.2 % (9.0-44.0); LYMPHOCYTE # 0.8 TH/MM3 (1.0-4.8); MEAN CELL VOLUME 90.4 FL (80.0-100.0); MEAN CORPUSCULAR HEMOGLOBIN 29.8 PG (27.0-34.0); MONO % 9.7 % (0.0-8.0); NEUT % 80.4 % (16.0-70.0); PLATELET COUNT 229 TH/MM3 (150-450); RED BLOOD COUNT 3.66 MIL/MM3 (4.50-5.90); RED CELL DISTRIBUTION WIDTH 15.8 % (11.6-17.2); WHITE BLOOD COUNT 12.6 TH/MM3 (4.0-11.0)
[2016-08-22 08:16] LABS: POTASSIUM 3.7 MEQ/L (3.5-5.1)
--- NOTE | 2016-08-22 09:22 | HHI.PR ---
Subjective Remarks Pt seen and examined. Urine now clear. No complaints. 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 Irrigate prn. Call with questions. Pj Le DO Aug 22, 2016 09:22
[2016-08-22] MEDS: SODIUM CHLORIDE 0.9% FLUSH 5 ML FLUSH FLUSH SCH ×2 (09:39→21:00)
[2016-08-22] MEDS: DOCUSATE SODIUM 100 MG CAP PO SCH ×2 (09:40→21:10)
[2016-08-22] MEDS: PANTOPRAZOLE SOD 40 MG DELAYED RELEASE TAB PO SCH ×2 (09:40→21:10)
--- NOTE | 2016-08-22 10:11 | HHI.FPPN ---
Subjective Remarks STILL COUGHING MALIK IRRIGATING D/W RN STILL W HEMATURIA PT V WEAK LOOKS WORSE Objective Vitals Vital Signs Date Time Temp Pulse Resp B/P Pulse Ox O2 Delivery O2 Flow Rate FiO2 08/22/16 08:04 98.0 101 18 128/73 95 08/22/16 03:32 97.4 99 19 132/67 94 08/22/16 01:01 98.1 83 19 125/70 96 08/21/16 19:29 98.3 96 18 143/81 97 08/21/16 14:30 97.6 67 17 112/68 94 08/21/16 12:00 97.5 95 17 109/72 97 08/21/16 11:24 61 08/21/16 11:17 73 Result Diagram: 08/22/1661508/22/16615 Objective Remarks GENERAL: SKIN: Warm and dry. HEAD: Atraumatic. Normocephalic. EYES: Pupils equal and round. No scleral icterus. No injection or drainage. ENT: No nasal bleeding or discharge. Mucous membranes pink and moist. NECK: Trachea midline. No JVD. CARDIOVASCULAR: Regular rate and rhythm. RESPIRATORY: No accessory muscle use. Clear to auscultation. Breath sounds equal bilaterally. GASTROINTESTINAL: Abdomen soft, non-tender, nondistended. Hepatic and splenic margins not palpable. MUSCULOSKELETAL: Extremities without clubbing, cyanosis, or edema. No obvious deformities. NEUROLOGICAL: Awake and alert. No obvious cranial nerve deficits. Motor grossly within normal limits. 1 out of 5 muscle strength in the arms and legs. Normal speech. PSYCHIATRIC: Appropriate mood and affect; insight and judgment normal. Medications and IVs Current Medications Medications (Trade) Dose Ordered Sig/Nai Route Start Time Stop Time Status Last Admin (Tylenol) 325 mg Q6H PRN PO 08/19/16 17:30 (Lipitor) 10 mg HS PO 08/19/16 21:00 08/21/16 21:54 (Sinemet 25-100 Mg) 1 tab Q8HR PO 08/19/16 22:00 08/22/16 05:39 (Plavix) 75 mg DAILY PO 08/20/16 09:00 Hold 08/20/16 08:20 (Colace) 100 mg BID PO 08/19/16 21:00 08/22/16 09:40 (Protonix) 40 mg BID PO 08/19/16 21:00 08/22/16 09:40 (Robitussin Dm 200-20 Mg/10 ml Liq) 10 ml Q4H PRN PO 08/19/16 18:00 08/20/16 08:26 (NS Flush) 2 ml UNSCH PRN FLUSH 08/19/16 17:30 (NS Flush) 2 ml BID FLUSH 08/19/16 21:00 08/21/16 21:54 (Tylenol) 650 mg Q4H PRN PO 08/19/16 17:30 (Zofran Inj) 4 mg Q6H PRN IVP 08/19/16 17:30 (Dulcolax Supp) 10 mg DAILY PRN [place] 08/19/16 17:30 (Milk Of Magnesia Liq) 30 ml Q12H PRN PO 08/19/16 17:30 (Ambien) 5 mg HS PRN PO 08/19/16 17:30 08/22/16 01:11 (Heparin Inj) 5,000 units Q12H SQ 08/19/16 18:00 Hold 08/20/16 17:46 (Narcan Inj) 0.4 mg UNSCH PRN IV 08/19/16 17:30 ([place] 5-325 Mg) 1 tab Q4H PRN PO 08/19/16 17:45 08/22/16 01:12 Clonidine 0.1 mg 0.1 mg Q6H PRN PO 08/19/16 17:45 (D5W-NS 1000 ml Inj) 1,000 ml @ 42 mls/hr [id number] IV 08/19/16 18:00 08/21/16 21:56 (Vasotec Inj) 2.5 mg Q6H PRN IV PUSH 08/19/16 17:45 Nitroglycerin 1 inch 1 inch Q6HR TOPICAL 08/19/16 18:00 08/22/16 05:39 Doxycycline Hyclate 100 mg/ Sodium Chloride 100 ml @ 100 mls/hr Q12H IV 08/19/16 18:00 08/22/16 05:39 Pharmacy Profile Note 0 ml @ 0 mls/hr UNSCH XX 08/19/16 17:45 (Vancomycin Inj/ NS 500 ml Inj) 515 ml @ 257.5 mls/ hr Q24H IV 08/20/16 18:00 08/21/16 18:16 Miscellaneous Information SPECIFIC LAB TO BE CHAN... ONCE ONCE XX 08/23/16 17:45 08/23/16 17:46 A/P Assessment and Plan NSTEMI SEPSIS BACTEREMIA HCAP HEMATURIA. -RENAL US RADIATION CYSTITIS PROSTATE CA PARKINSONS HTN CVA PSEUDOGOUT PLAN: RESTART PO HOLD HEPARIN AND PLAVIX D/T HEMATURIA UROLOGY CONSULT MALIK IRRIGATION MALIK MAY HAVE BEEN IN ALREADY AT THE [facility]F DC ntg OINT IV ABX IVF IV PROTONIX ID CONSULT CARDIOLOGY SIGNED OFF. POOR PROGNOSIS DISPO: BACK TO [facility] PT HAS BEEN OBS FOR TWO MN. EXPECT 2 MORE D INPT STAY. PT WOULD IF DC BACK TO [facility]. Fer Ace MD Aug 22, 2016 10:11
--- NOTE | 2016-08-22 11:11 | RADRPT ---
EXAM DATE/TIME: 08/22/2016 10:37 [facility] COMPARISON: No previous studies available for comparison. INDICATIONS : Congestion, cough. MEDICAL HISTORY : Stroke. Hypertension. Parkinson's. Hiatal hernia. GERD. Arthritis. Gout. Measles. SURGICAL HISTORY : Tonsillectomy. Cholecystectomy. Total knee replacement, left. Bilateral carpal tunnel surgery. Right hernia repair. ENCOUNTER: Subsequent ACUITY: 3 days PAIN SCORE: Non-responsive. LOCATION: chest FINDINGS: Right lung is clear. Minimal parenchymal changes are now developing in the left lung new from the co mparison study. Heart and pulmonary vascularity are normal. CONCLUSION: New parenchymal opacity left lung. Abe Kirby MD FACR on August 22, 2016 at 11:08 Board Certified Radiologist. This report was verified electronically.
--- NOTE | 2016-08-22 16:02 | PD.CONS ---
History of Present Illness Service Infectious disease Consult Requested By Dr Piyush Ace Reason for Consult Evaluate patient for antibiotic management Primary Care Physician Fer Ace MD Diagnoses: History of Present Illness Patient seen and examined. Records reviewed. Patient is not a good historian. Patient is an 80-year-old male, resident of a [facility], brought into the hospital for evaluation of significant weakness. He apparently was having some cough and congestion. Patient states that his coughing is fairly dry with no sputum production. Patient has had previous bronchitis episodes the previous month. His initial chest x-ray was normal. Patient has not been febrile since admission. He was diagnosed to have non-ST elevated OH. Patient continues to be very weak. He seems to be more short of breath today, and somewhat lethargic. His chest x-ray today is now showing a new infiltrate in the left base. During this hospitalization patient also had hematuria, and urology saw the patient. He had irrigation of his bladder, and his hematuria has resolved. His initial WBC was 17,000, and it's down to 12,000. Infectious disease consultation requested to evaluate the patient. Review of Systems Constitutional: COMPLAINS OF: Fatigue, DENIES: Fever, Chills Eyes: DENIES: Eye pain Ears, nose, mouth, throat: DENIES: Oral lesions, Throat pain Respiratory: COMPLAINS OF: Cough, Shortness of breath Cardiovascular: DENIES: Chest pain, Palpitations Gastrointestinal: COMPLAINS OF: Difficulty Swallowing, DENIES: Abdominal pain , Nausea, Vomiting Genitourinary: DENIES: Hematuria, Testicular Pain Musculoskeletal: DENIES: Muscle aches Integumentary: DENIES: Rash Neurologic: DENIES: Headache Psychiatric: COMPLAINS OF: Confusion Past Family Social History Allergies: Coded Allergies: Cipro (Verified Allergy, Mild, RASH, 08/19/16) E-Mycin (Verified Allergy, Mild, DIARRHEA, 08/19/16) Keflex (Verified Allergy, Mild, UNKNOWN, 08/19/16) causes rash Past Medical History Osteoarthritis Gout CVA Hypertension Gastroesophageal reflux disease Parkinson's Vertebral fracture Past Surgical History Right inguinal hernia repair Tonsillectomy Cataract surgery Active Ordered Medications Tylenol [place] Lipitor Dulcolax Sinemet Catapres Colace Doxycycline Robitussin Vasotec MOM Zofran Protonix Vancomycin Ambien Social History Came from the [facility] No smoking Alcohol abuse No illicit drug use Physical Exam Vital Signs Vital Signs Date Time Temp Pulse Resp B/P Pulse Ox O2 Delivery O2 Flow Rate FiO2 08/22/16 11:54 98.7 88 19 125/81 95 08/22/16 08:30 97 08/22/16 08:04 98.0 101 18 128/73 95 08/22/16 03:32 97.4 99 19 132/67 94 08/22/16 01:01 98.1 83 19 125/70 96 08/21/16 19:29 98.3 96 18 143/81 97 Physical Exam GENERAL: This is a well-nourished, well-developed male, somewhat lethargic, in mild respiratory distress. SKIN: Warm and dry. No generalized rash or ecchymosis. HEAD: Atraumatic. Normocephalic. No temporal or scalp tenderness. EYES: Manuel Garcia Ii conjunctivae. Pupils equal round and reactive. Extraocular motions intact. No scleral icterus. No injection or drainage. ENT: Nose without bleeding, or purulent drainage. Dry oral mucosa. NECK: Trachea midline. No JVD or lymphadenopathy. Supple, nontender, no meningeal signs. CARDIOVASCULAR: Regular rate and rhythm without murmurs, gallops, or rubs. RESPIRATORY: Clear to auscultation. Breath sounds equal bilaterally. No wheezes , rales, or rhonchi. Decreased breath sounds at the bases. GASTROINTESTINAL: Abdomen soft, non-tender, nondistended. Bowel sounds are present and normoactive. No hepato-splenomegaly, or palpable masses. No guarding. GENITOURINARY: Nolen catheter in place, urine looks clear MUSCULOSKELETAL: Extremities without clubbing, cyanosis, or edema. No joint tenderness, effusion, or edema noted. No calf tenderness. Negative Homans sign bilaterally. NEUROLOGICAL: Lethargic, opens eyes, answers some questions but very slow, then stop. Moving extremities. No babinski or ankle clonus LINE: PIV with no evidence of infection Laboratory Laboratory Tests Test 08/22/16 08/22/16 06:16 11:03 White Blood Count 12.6 Red Blood Count 3.66 Hemoglobin 10.9 Hematocrit 33.0 Mean Corpuscular Volume 90.4 Mean Corpuscular Hemoglobin 29.8 Mean Corpuscular Hemoglobin 33.0 Concent Red Cell Distribution Width 15.8 Platelet Count 229 Mean Platelet Volume 9.0 Neutrophils (%) (Auto) 80.4 Lymphocytes (%) (Auto) 6.2 Monocytes (%) (Auto) 9.7 Eosinophils (%) (Auto) 2.8 Basophils (%) (Auto) 0.9 Neutrophils # (Auto) 10.2 Lymphocytes # (Auto) 0.8 Monocytes # (Auto) 1.2 Eosinophils # (Auto) 0.4 Basophils # (Auto) 0.1 CBC Comment DIFF FINAL Differential Comment Sodium Level 139 Potassium Level 3.7 Chloride Level 108 Carbon Dioxide Level 20.0 Anion Gap 11 Blood Urea Nitrogen 17 Creatinine 0.88 Estimat Glomerular Filtration 83 Rate Random Glucose 80 Calcium Level 8.5 Lactic Acid Level 1.6 Date/Time Procedure Status Source Growth 08/22/16 11:03 Aerobic Blood Culture Received Blood Peripheral Pending 08/22/16 11:03 Anaerobic Blood Culture Received Blood Peripheral Pending 08/20/16 07:30 Aerobic Blood Culture - Preliminary Resulted Blood Peripheral NO GROWTH IN 2 DAYS 08/20/16 07:30 Anaerobic Blood Culture - Preliminary Resulted Staph Sp Coagulase Negative 08/19/16 13:15 Influenza Types A,B Antigen (LEX) - Final Complete Nasal Aspirate NEGATIVE FOR FLU A AND B ANTIGEN.... Result Diagram: 08/22/16 0616 08/22/16 0616 Imaging RADIOLOGY STUDIES/FILMS REVIEWED Chest X-Ray 08/22/16 0000 Signed Impressions: Service Date/Time: Monday, August 22, 2016 10:37 - CONCLUSION: New parenchymal opacity left lung. Abe Kirby MD FACR Renal Ultrasound 08/21/16 0000 Signed Impressions: Service Date/Time: August 12:52 - CONCLUSION: Normal examination except for debris within the bladder and a thickened wall with a Nolen catheter of uncertain significance. Bjorn Palma MD Assessment and Plan Assessment and Plan IMPRESSION Sepsis on presentation, seem worse today, has new infiltrate L base, ?some aspiration component Hematuria, resolved NSTEMI Multiple Abx allergy - has tolerated carbapenems in the past RECOMMENDATION Add Azactam for GNR coverage and Zyvox for MRSA Continue Doxycyline for atypical coverage Check Legionella and pneumococcal antigen Repeat 2 blood cultures today Repeat urinalysis and culture Monitor temps Follow culture and adjust antibiotics Monitor progress Further recommendation to follow regarding antibiotic course once workup is completed and depending on his clinical response I will follow along with you. Thank you for this consultation Consuelo Nation MD Aug 22, 2016 16:02
[2016-08-22] MEDS: AZTREONAM INJ 2,000 MG in SODIUM CHLORIDE 0.9% INJ 100 ML IV SCH (18:08)
[2016-08-22 18:10] LABS: BLOOD, URINE MOD (NEG); GLUCOSE,URINE NEG (NEG); KETONE, URINE 10 mg/dL (NEG); MUCUS URINE FEW /lpf (OCC); NITRITE,URINE NEG (NEG); PH, URINE 5.5 (5.0-8.5)
[2016-08-22 18:16] LABS: COMMENT (UR) CATH-CULTURE IND; CULTURE IF INDICATED CATH CULTURE IND; URINE COLOR DARK-YELLOW (YELLW/STRAW)
[2016-08-22] MEDS: LINEZOLID 600 MG PREMIX 300 ML IV SCH (21:09)
[2016-08-22] MEDS: ATORVASTATIN 10 MG TAB PO SCH (21:10)
[2016-08-22] MEDS: guaiFENesin/DEXTROMETHORPHAN 200 MG/20 MG/10 ML CUP PO PRN (21:24)
[2016-08-22] MEDS: DEXT 5%-NACL 0.9% 1000 ML INJ 1,000 ML IV SCH (22:41)
[2016-08-23] VITALS (8 sets, daily range): BP systolic 103–145; BP diastolic 65–85; PULSE 71–114; RESP 18–20; TEMP 95.3–98.4; O2SAT 97–99
[2016-08-23] MEDS: AZTREONAM INJ 2,000 MG in SODIUM CHLORIDE 0.9% INJ 100 ML IV SCH ×2 (04:58→18:35)
[2016-08-23] MEDS: CARBIDOPA/LEVODOPA 25 MG/100 MG TAB PO SCH ×3 (05:01→22:13)
[2016-08-23] MEDS: ACETAMINOPHEN/HYDROcodone 325 MG/5 MG TAB PO PRN (05:01)
[2016-08-23] MEDS: DOXYCYCLINE INJ 100 MG in SODIUM CHLORIDE 0.9% INJ 100 ML IV SCH ×2 (05:38→19:37)
[2016-08-23] MEDS: LINEZOLID 600 MG PREMIX 300 ML IV SCH ×2 (06:45→20:55)
[2016-08-23 07:18] LABS: AUTOMATED NEUTROPHIL # 10.9 TH/MM3 (1.8-7.7); BASOPHIL # 0.1 TH/MM3 (0-0.2); BASOPHIL % 0.6 % (0.0-2.0); EOSINOPHIL # 0.5 TH/MM3 (0-0.4); EOSINOPHIL % 3.3 % (0.0-4.0); HEMATOCRIT 33.2 % (39.0-51.0); HEMO FLAGS DIFF FINAL; LYMPH % 8.8 % (9.0-44.0); LYMPHOCYTE # 1.2 TH/MM3 (1.0-4.8); MEAN CELL VOLUME 90.6 FL (80.0-100.0); MEAN CORPUSCULAR HGB CONC 33.1 % (32.0-36.0); MONO % 9.2 % (0.0-8.0); NEUT % 78.1 % (16.0-70.0); PLATELET COUNT 214 TH/MM3 (150-450); RED BLOOD COUNT 3.67 MIL/MM3 (4.50-5.90); RED CELL DISTRIBUTION WIDTH 15.9 % (11.6-17.2)
[2016-08-23 07:30] LABS: BICARBONATE 21.9 MEQ/L (21.0-32.0); POTASSIUM 3.2 MEQ/L (3.5-5.1)
[2016-08-23] MEDS: PANTOPRAZOLE SOD 40 MG DELAYED RELEASE TAB PO SCH ×2 (10:42→22:12)
[2016-08-23] MEDS: DOCUSATE SODIUM 100 MG CAP PO SCH ×2 (10:42→22:13)
[2016-08-23] MEDS: SODIUM CHLORIDE 0.9% FLUSH 5 ML FLUSH FLUSH SCH ×2 (10:42→21:00)
--- NOTE | 2016-08-23 17:06 | HHI.PR ---
Subjective Remarks awake and alert, oriented to person and place, speech soft but clear per patient - can ambulate around with a walker- I doubt this eats well but needs total assist ff commands Objective Vitals Vital Signs Date Time Temp Pulse Resp B/P Pulse Ox O2 Delivery O2 Flow Rate FiO2 08/23/16 16:05 114 130/82 08/23/16 11:48 87 108/65 08/23/16 08:40 71 08/23/16 08:00 95.3 76 20 103/67 08/23/16 06:47 18 08/23/16 05:14 97 18 145/73 97 08/23/16 00:37 86 20 138/77 97 08/22/16 22:51 92 08/22/16 19:25 98.4 90 18 140/81 97 08/22/16 19:11 97 I/O 08/22/16 08/22/16 08/22/16 08/23/16 08/23/16 08/23/16 07:00 15:00 23:00 07:00 15:00 23:00 Intake Total 480 ml Output Total 850 ml Balance -370 ml Intake Oral 480 ml Output Urine Total 850 ml Result Diagram: 08/23/16 0544 08/23/16 0544 Imaging Last Impressions Chest X-Ray 08/22/16 0000 Signed Impressions: Service Date/Time: Monday, August 22, 2016 10:37 - CONCLUSION: New parenchymal opacity left lung. Abe Kirby MD FACR Renal Ultrasound 08/21/16 0000 Signed Impressions: Service Date/Time: August 12:52 - CONCLUSION: Normal examination except for debris within the bladder and a thickened wall with a Andrea catheter of uncertain significance. Bjorn Palma MD Objective Remarks awake and alert, oriented x 3, anicteric, dry oral mucosa lungs no rales, decreased breath sounds, equal, no wheezes regular rhythm abdomen soft, nontender andrea in place extremities no edema, good peripheral pulses moves all extremities but stiff Urinary Catheter: Yes Assessment to: Continue Andrea insert reason: Prolonged Immobilization Date of Insertion: Aug 19, 2016 A/P Assessment and Plan 80 years old male from [place] Sepsis Pneumonia- +infiltrate left lobe. + aspiration New UTI- gram negative rods on UA Azactam from Gram negative coverage Zyvox for MRSA Doxycycline for atypical coverage ff cultures ID service ff seen by speech therapist- diet thickened pureed. 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 no plan for intervention per Cardiology History of advance Parkinson's disease Deconditioning PT/OT consult states he still gets around with a front wheel walker - ? doubt- stiff on exam ? baseline activity status- looks like he is total assist Sacral erythema- turn patient q 2 hours wound care team consult - any recommendation or ? sacral dressing Dietary consult - nutrition recommendations doubt if oral intake will need nutritional requirement maybe a PEG candidate Out of bed to chair daily. PPI for GI prophylaxis Mechanical prophylaxis- TEDs/SCDs no chemical prophylaxis- patient had gross hematuria Nicola Morelos MD Aug 23, 2016 17:06
[2016-08-23] MEDS ORDERED: PHARMACY ORDERED LAB XX ONE (17:45)
[2016-08-23] MEDS: METOPROLOL TARTRATE 25 MG TAB PO SCH (22:12)
[2016-08-23] MEDS: POTASSIUM CHLORIDE INJ 10 MEQ in DEXT 5%-NACL 0.9% 1000 ML INJ 1,000 ML IV SCH (22:12)
[2016-08-23] MEDS: ATORVASTATIN 10 MG TAB PO SCH (22:13)
[2016-08-23] MEDS: POTASSIUM CHLOR 10 MEQ PREMIX 100 ML IV SCH (22:16)
[2016-08-24] VITALS (9 sets, daily range): BP systolic 95–128; BP diastolic 67–92; PULSE 66–99; RESP 18–22; TEMP 98–99.5; O2SAT 94–99
[2016-08-24] MEDS: ACETAMINOPHEN/HYDROcodone 325 MG/5 MG TAB PO PRN (00:08)
[2016-08-24] MEDS: POTASSIUM CHLOR 10 MEQ PREMIX 100 ML IV SCH ×4 (00:48→15:30)
[2016-08-24] MEDS: AZTREONAM INJ 2,000 MG in SODIUM CHLORIDE 0.9% INJ 100 ML IV SCH ×2 (04:52→18:13)
[2016-08-24] MEDS: LINEZOLID 600 MG PREMIX 300 ML IV SCH ×2 (05:32→21:44)
[2016-08-24] MEDS: CARBIDOPA/LEVODOPA 25 MG/100 MG TAB PO SCH ×3 (05:37→21:29)
[2016-08-24] MEDS: DOXYCYCLINE INJ 100 MG in SODIUM CHLORIDE 0.9% INJ 100 ML IV SCH ×2 (06:33→18:12)
[2016-08-24] MEDS: DOCUSATE SODIUM 100 MG CAP PO SCH ×2 (07:49→21:00)
[2016-08-24 08:14] LABS: AUTOMATED NEUTROPHIL # 11.9 TH/MM3 (1.8-7.7); BASOPHIL % 0.3 % (0.0-2.0); EOSINOPHIL # 0.6 TH/MM3 (0-0.4); EOSINOPHIL % 4.2 % (0.0-4.0); HEMATOCRIT 33.3 % (39.0-51.0); HEMO FLAGS DIFF FINAL; LYMPH % 5.7 % (9.0-44.0); LYMPHOCYTE # 0.8 TH/MM3 (1.0-4.8); MEAN CELL VOLUME 90.7 FL (80.0-100.0); MEAN CORPUSCULAR HEMOGLOBIN 30.2 PG (27.0-34.0); MEAN CORPUSCULAR HGB CONC 33.3 % (32.0-36.0); MONO % 6.5 % (0.0-8.0); NEUT % 83.3 % (16.0-70.0); PLATELET COUNT 240 TH/MM3 (150-450); RED BLOOD COUNT 3.67 MIL/MM3 (4.50-5.90); RED CELL DISTRIBUTION WIDTH 16.2 % (11.6-17.2); WHITE BLOOD COUNT 14.3 TH/MM3 (4.0-11.0)
[2016-08-24 08:35] LABS: BICARBONATE 23.2 MEQ/L (21.0-32.0); POTASSIUM 3.4 MEQ/L (3.5-5.1)
[2016-08-24] MEDS: PANTOPRAZOLE SOD 40 MG DELAYED RELEASE TAB PO SCH ×2 (09:00→21:29)
[2016-08-24] MEDS: SODIUM CHLORIDE 0.9% FLUSH 5 ML FLUSH FLUSH SCH ×2 (09:00→21:00)
[2016-08-24] MEDS: METOPROLOL TARTRATE 25 MG TAB PO SCH ×2 (09:00→21:30)
--- NOTE | 2016-08-24 10:32 | HHI.PR ---
Subjective Remarks Patient sleepy, does arouse to voice. Has no complaints at this time. Afebrile , vital signs stable. Objective Vitals Vital Signs Date Time Temp Pulse Resp B/P Pulse Ox O2 Delivery O2 Flow Rate FiO2 08/24/16 08:00 98.1 76 20 107/67 99 08/24/16 04:00 98.4 85 18 106/72 94 08/24/16 02:15 75 08/24/16 01:50 98.0 76 18 95/67 96 08/24/16 01:25 18 08/23/16 20:14 98.4 97 19 132/85 97 08/23/16 20:00 99 08/23/16 16:05 114 130/82 08/23/16 11:48 87 108/65 I/O 08/23/16 08/23/16 08/23/16 08/24/16 08/24/16 08/24/16 07:00 15:00 23:00 07:00 15:00 23:00 Intake Total 1745 ml 1200 ml Output Total 650 ml Balance 1095 ml 1200 ml Intake Oral 60 ml 1200 ml IV Total 1685 ml Output Urine Total 650 ml # Bowel Movements 1 Result Diagram: 08/24/16 0740 08/24/16 0740 Imaging Last Impressions Chest X-Ray 08/22/16 0000 Signed Impressions: Service Date/Time: Monday, August 22, 2016 10:37 - CONCLUSION: New parenchymal opacity left lung. Abe Kirby MD FACR Renal Ultrasound 08/21/16 0000 Signed Impressions: Service Date/Time: August 12:52 - CONCLUSION: Normal examination except for debris within the bladder and a thickened wall with a Andrea catheter of uncertain significance. Bjorn Palma MD Objective Remarks Gen.: No acute distress Head: Normocephalic. Atraumatic. EENT: Pupils equal round and reactive to light. Nose without drainage. Airway intact. Throat without injection. Cardiovascular: Regular rate and rhythm. No murmurs, rubs or gallops. Respiratory: Lungs clear to auscultation bilaterally. Upper airway sounds transmitted throughout. Abdomen: Soft, nontender, nondistended. No peritoneal signs. Musculoskeletal: No gross deformities. No edema. Skin: No obvious rashes or erythema. Neuro: Sensory and motor grossly intact. Cranial nerves II through XII grossly intact. Psych: Lethargic, arouses to voice Date of Insertion: Aug 19, 2016 A/P Problem List: (1) NSTEMI (non-ST elevated myocardial infarction) ICD Code: I21.4 Status: Acute (2) UTI (urinary tract infection) ICD Code: N39.0 Status: Acute (3) CHAY (acute kidney injury) ICD Code: N17.9 Status: Acute (4) PNA (pneumonia) ICD Code: J18.9 Status: Acute (5) Hypokalemia ICD Code: E87.6 Status: Acute (6) Encephalopathy ICD Code: G93.40 Status: Acute (7) HTN (hypertension) ICD Code: I10 Status: Chronic Assessment and Plan 80 years old male from [place] Sepsis Pneumonia- +infiltrate left lobe. + aspiration. Continued leukocytosis New UTI- gram negative rods on UA Azactam from Gram negative coverage Zyvox for MRSA Doxycycline for atypical coverage ff cultures ID service ff seen by speech therapist- diet thickened pureed. 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 no plan for intervention per Cardiology History of advance Parkinson's disease Deconditioning PT/OT consult states he still gets around with a front wheel walker - ? doubt- stiff on exam ? baseline activity status- looks like he is total assist Sacral erythema- turn patient q 2 hours wound care team consult - any recommendation or ? sacral dressing Dietary consult - nutrition recommendations doubt if oral intake will need nutritional requirement maybe a PEG candidate Out of bed to chair daily. PPI for GI prophylaxis Mechanical prophylaxis- TEDs/SCDs no chemical prophylaxis- patient had gross hematuria Chantell Tony MD R3 Aug 24, 2016 10:32
[2016-08-24] MEDS: POTASSIUM CHLORIDE INJ 10 MEQ in DEXT 5%-NACL 0.9% 1000 ML INJ 1,000 ML IV SCH ×2 (13:12→21:28)
[2016-08-24] MEDS: ATORVASTATIN 10 MG TAB PO SCH (21:29)
[2016-08-24] MEDS: ACETAMINOPHEN 325 MG TAB PO PRN (21:44)
[2016-08-25] VITALS (8 sets, daily range): BP systolic 106–138; BP diastolic 72–99; PULSE 71–113; RESP 17–22; TEMP 95.6–98.8; O2SAT 96–98
[2016-08-25] MEDS: CARBIDOPA/LEVODOPA 25 MG/100 MG TAB PO SCH ×3 (05:45→23:20)
[2016-08-25] MEDS: AZTREONAM INJ 2,000 MG in SODIUM CHLORIDE 0.9% INJ 100 ML IV SCH ×2 (05:46→16:52)
[2016-08-25] MEDS: LINEZOLID 600 MG PREMIX 300 ML IV SCH (05:48)
[2016-08-25] MEDS: DOXYCYCLINE INJ 100 MG in SODIUM CHLORIDE 0.9% INJ 100 ML IV SCH (05:48)
[2016-08-25 07:52] LABS: AUTOMATED NEUTROPHIL # 10.8 TH/MM3 (1.8-7.7); BASOPHIL # 0.1 TH/MM3 (0-0.2); BASOPHIL % 0.5 % (0.0-2.0); EOSINOPHIL # 0.7 TH/MM3 (0-0.4); EOSINOPHIL % 5.4 % (0.0-4.0); HEMATOCRIT 33.4 % (39.0-51.0); HEMO FLAGS DIFF FINAL; LYMPH % 7.4 % (9.0-44.0); MEAN CELL VOLUME 91.5 FL (80.0-100.0); MEAN CORPUSCULAR HEMOGLOBIN 30.4 PG (27.0-34.0); MEAN CORPUSCULAR HGB CONC 33.2 % (32.0-36.0); MONO % 5.4 % (0.0-8.0); NEUT % 81.3 % (16.0-70.0); PLATELET COUNT 270 TH/MM3 (150-450); RED BLOOD COUNT 3.65 MIL/MM3 (4.50-5.90); RED CELL DISTRIBUTION WIDTH 16.4 % (11.6-17.2); WHITE BLOOD COUNT 13.3 TH/MM3 (4.0-11.0)
[2016-08-25 08:20] LABS: BICARBONATE 21.9 MEQ/L (21.0-32.0); MAGNESIUM 1.4 MG/DL (1.5-2.5); POTASSIUM 3.7 MEQ/L (3.5-5.1)
[2016-08-25] MEDS: DOCUSATE SODIUM 100 MG CAP PO SCH ×2 (09:00→23:20)
[2016-08-25] MEDS: SODIUM CHLORIDE 0.9% FLUSH 5 ML FLUSH FLUSH SCH ×2 (09:00→23:20)
[2016-08-25] MEDS: METOPROLOL TARTRATE 25 MG TAB PO SCH ×2 (09:03→23:18)
[2016-08-25] MEDS: PANTOPRAZOLE SOD 40 MG DELAYED RELEASE TAB PO SCH ×2 (09:03→23:18)
--- NOTE | 2016-08-25 09:43 | HHI.FPPN ---
Subjective Remarks VERY WEAK STATES HE WANTS TO KEEP GOING D/W RN V HARSH COUGH LOOKING WORSE Objective Vitals Vital Signs Date Time Temp Pulse Resp B/P Pulse Ox O2 Delivery O2 Flow Rate FiO2 08/25/16 07:50 95.6 90 20 138/99 96 08/25/16 04:00 98.8 90 22 132/86 96 08/24/16 23:46 98.7 85 18 128/85 96 08/24/16 22:37 86 08/24/16 16:51 86 08/24/16 16:00 99.5 99 22 122/92 98 08/24/16 13:18 99.1 66 18 111/67 97 I/O 08/24/16 08/24/16 08/24/16 08/25/16 08/25/16 08/25/16 07:00 15:00 23:00 07:00 15:00 23:00 Intake Total 1745 ml 1260 ml 240 ml 2256 ml Output Total 650 ml 400 ml 100 ml Balance 1095 ml 860 ml 140 ml 2256 ml Intake Oral 60 ml 1260 ml 240 ml IV Total 1685 ml 2256 ml Output Urine Total 650 ml 400 ml 100 ml # Bowel Movements 1 2 2 Result Diagram: 08/25/16 0600 08/25/16 0600 Objective Remarks GENERAL: SKIN: Warm and dry. HEAD: Atraumatic. Normocephalic. EYES: Pupils equal and round. No scleral icterus. No injection or drainage. ENT: No nasal bleeding or discharge. Mucous membranes pink and moist. NECK: Trachea midline. No JVD. CARDIOVASCULAR: Regular rate and rhythm. RESPIRATORY: V HARSH COUGH, B R/R TO APICES, GASTROINTESTINAL: Abdomen soft, non-tender, nondistended. Hepatic and splenic margins not palpable. MUSCULOSKELETAL: Extremities without clubbing, cyanosis, or edema. No obvious deformities. NEUROLOGICAL: Awake and alert. No obvious cranial nerve deficits. Motor grossly within normal limits. 1 out of 5 muscle strength in the arms and legs. Normal speech. PSYCHIATRIC: Appropriate mood and affect; insight and judgment normal. Medications and IVs Current Medications Medications (Trade) Dose Ordered Sig/Nai Route Start Time Stop Time Status Last Admin (Tylenol) 325 mg Q6H PRN PO 08/19/16 17:30 (Lipitor) 10 mg HS PO 08/19/16 21:00 08/24/16 21:29 (Sinemet 25-100 Mg) 1 tab Q8HR PO 08/19/16 22:00 08/25/16 05:45 (Plavix) 75 mg DAILY PO 08/20/16 09:00 Hold 08/20/16 08:20 (Colace) 100 mg BID PO 08/19/16 21:00 08/23/16 22:13 (Protonix) 40 mg BID PO 08/19/16 21:00 08/25/16 09:03 (Robitussin Dm 200-20 Mg/10 ml Liq) 10 ml Q4H PRN PO 08/19/16 18:00 08/22/16 21:24 (NS Flush) 2 ml UNSCH PRN FLUSH 08/19/16 17:30 (NS Flush) 2 ml BID FLUSH 08/19/16 21:00 08/23/16 10:42 (Tylenol) 650 mg Q4H PRN PO 08/19/16 17:30 08/24/16 21:44 (Zofran Inj) 4 mg Q6H PRN IVP 08/19/16 17:30 (Dulcolax Supp) 10 mg DAILY PRN [place] 08/19/16 17:30 (Milk Of Magnesia Liq) 30 ml Q12H PRN PO 08/19/16 17:30 (Ambien) 5 mg HS PRN PO 08/19/16 17:30 08/22/16 01:11 (Heparin Inj) 5,000 units Q12H SQ 08/19/16 18:00 Hold 08/20/16 17:46 (Narcan Inj) 0.4 mg UNSCH PRN IV 08/19/16 17:30 ([place] 5-325 Mg) 1 tab Q4H PRN PO 08/19/16 17:45 08/24/16 00:08 (Catapres) 0.1 mg Q6H PRN PO 08/19/16 17:45 Enalaprilat 2.5 mg 2.5 mg Q6H PRN IV PUSH 08/19/16 17:45 Doxycycline Hyclate 100 mg/ Sodium Chloride 100 ml @ 100 mls/hr Q12H IV 08/19/16 18:00 08/25/16 05:48 Aztreonam 2000 mg/ Sodium Chloride 100 ml @ 200 mls/hr Q12H IV 08/22/16 17:30 08/25/16 05:46 (Zyvox 600 Mg Premix) 300 ml @ 300 mls/hr Q12H IV 08/22/16 18:00 08/25/16 05:48 Metoprolol Tartrate 12.5 mg 12.5 mg Q12HR PO 08/23/16 21:00 08/25/16 09:03 (KCl Inj/D5W-NS 1000 ml Inj) 1,005 ml @ 75 mls/hr [id number] IV 08/23/16 20:00 08/24/16 21:28 Date of Insertion: Aug 19, 2016 A/P Assessment and Plan Sepsis Pneumonia- +infiltrate left lobe. + aspiration. Continued leukocytosis CHRONIC ANDREA New UTI- gram negative rods on UA Azactam from Gram negative coverage Zyvox for MRSA Doxycycline for atypical coverage ff cultures ID service ff seen by speech therapist- diet thickened pureed. 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 no plan for intervention per Cardiology Parkinson's disease Deconditioning PT/OT consult. Out of bed to chair daily. Sacral erythema- turn patient q 2 hours wound care team consult Dietary consult - nutrition recommendations doubt if oral intake will need nutritional requirement maybe a PEG candidate PPI for GI prophylaxis Mechanical prophylaxis- TEDs/SCDs. no chemical prophylaxis- patient had gross hematuria Fer Ace MD Aug 25, 2016 09:43
--- NOTE | 2016-08-25 10:32 | HHI.IDPN ---
Subjective Subjective Remarks Notes reviewed No fever Still very weak Has good sats UC with Proteus One BC with Staph epi, repeat BC negative Antibiotics Azactam Zyvox Doxycyline Past Medical History Osteoarthritis Gout CVA Hypertension Gastroesophageal reflux disease Parkinson's Vertebral fracture Past Surgical History Right inguinal hernia repair Tonsillectomy Cataract surgery Allergies: Coded Allergies: Cipro (Verified Allergy, Mild, RASH, 08/19/16) E-Mycin (Verified Allergy, Mild, DIARRHEA, 08/19/16) Keflex (Verified Allergy, Mild, UNKNOWN, 08/19/16) causes rash Objective . Vital Signs Date Time Temp Pulse Resp B/P Pulse Ox O2 Delivery O2 Flow Rate FiO2 08/25/16 07:50 95.6 90 20 138/99 96 08/25/16 04:00 98.8 90 22 132/86 96 08/24/16 23:46 98.7 85 18 128/85 96 08/24/16 22:37 86 08/24/16 16:51 86 08/24/16 16:00 99.5 99 22 122/92 98 08/24/16 13:18 99.1 66 18 111/67 97 08/24/16 08/24/16 08/25/16 15:00 23:00 07:00 Intake Total 1260 ml 240 ml 2256 ml Output Total 400 ml 100 ml Balance 860 ml 140 ml 2256 ml Intake Oral 1260 ml 240 ml IV Total 2256 ml Output Urine Total 400 ml 100 ml # Bowel Movements 2 2 . Laboratory Tests Test 08/24/16 08/25/16 07:40 06:00 White Blood Count 14.3 TH/MM3 13.3 TH/MM3 Red Blood Count 3.67 MIL/MM3 3.65 MIL/MM3 Hemoglobin 11.1 GM/DL 11.1 GM/DL Hematocrit 33.3 % 33.4 % Mean Corpuscular Volume 90.7 FL 91.5 FL Mean Corpuscular Hemoglobin 30.2 PG 30.4 PG Mean Corpuscular Hemoglobin 33.3 % 33.2 % Concent Red Cell Distribution Width 16.2 % 16.4 % Platelet Count 240 TH/MM3 270 TH/MM3 Mean Platelet Volume 8.3 FL 8.8 FL Neutrophils (%) (Auto) 83.3 % 81.3 % Lymphocytes (%) (Auto) 5.7 % 7.4 % Monocytes (%) (Auto) 6.5 % 5.4 % Eosinophils (%) (Auto) 4.2 % 5.4 % Basophils (%) (Auto) 0.3 % 0.5 % Neutrophils # (Auto) 11.9 TH/MM3 10.8 TH/MM3 Lymphocytes # (Auto) 0.8 TH/MM3 1.0 TH/MM3 Monocytes # (Auto) 0.9 TH/MM3 0.7 TH/MM3 Eosinophils # (Auto) 0.6 TH/MM3 0.7 TH/MM3 Basophils # (Auto) 0.0 TH/MM3 0.1 TH/MM3 CBC Comment DIFF FINAL DIFF FINAL Differential Comment Laboratory Tests Test 08/24/16 08/25/16 07:40 06:00 Sodium Level 141 MEQ/L 142 MEQ/L Potassium Level 3.4 MEQ/L 3.7 MEQ/L Chloride Level 106 MEQ/L 109 MEQ/L Carbon Dioxide Level 23.2 MEQ/L 21.9 MEQ/L Anion Gap 12 MEQ/L 11 MEQ/L Blood Urea Nitrogen 19 MG/DL 17 MG/DL Creatinine 1.06 MG/DL 1.01 MG/DL Estimat Glomerular Filtration 67 ML/MIN 71 ML/MIN Rate Random Glucose 110 MG/DL 97 MG/DL Calcium Level 8.4 MG/DL 8.5 MG/DL Magnesium Level 1.4 MG/DL Microbiology Date/Time Procedure Status Source Growth 08/22/16 10:55 Aerobic Blood Culture - Preliminary Resulted Blood Peripheral NO GROWTH IN 2 DAYS 08/22/16 10:55 Anaerobic Blood Culture - Preliminary Resulted Blood Peripheral NO GROWTH IN 2 DAYS 08/22/16 11:03 Aerobic Blood Culture - Preliminary Resulted Blood Peripheral NO GROWTH IN 2 DAYS 08/22/16 11:03 Anaerobic Blood Culture - Preliminary Resulted Blood Peripheral NO GROWTH IN 2 DAYS 08/22/16 17:30 Legionella Antigen - Final Complete Urine Catheterized Urine PRESUMPTIVE NEGATIVE FOR LEGIONELLA P... 08/22/16 17:30 Streptococcus pneumoniae Antigen (M - Final Complete Urine Catheterized Urine PRESUMPTIVE NEGATIVE FOR STREPTOCOCCU... 08/22/16 17:30 Urine Culture - Final Complete Urine Clean Catch Proteus Mirabilis 08/24/16 02:20 Gram Stain - Final Resulted Wound Other 08/24/16 02:20 Wound Culture Resulted Wound Other Pending Imaging Chest X-Ray 08/22/16 0000 Signed Impressions: Service Date/Time: Monday, August 22, 2016 10:37 - CONCLUSION: New parenchymal opacity left lung. Abe Kirby MD FACR Renal Ultrasound 08/21/16 0000 Signed Impressions: Service Date/Time: August 12:52 - CONCLUSION: Normal examination except for debris within the bladder and a thickened wall with a Nolen catheter of uncertain significance. Bjorn Palma MD Physical Exam GENERAL: Awake, but very weak, NAD SKIN: Warm and dry. No generalized rash HEAD: Atraumatic. Normocephalic. No temporal or scalp tenderness. EYES: Carl conjunctivae. No scleral icterus, no injection. ENT: No nasal discharge. Moist mucosa NECK: Supple, nontender, no meningeal signs. CARDIOVASCULAR: Regular rate and rhythm without murmurs, gallops, or rubs. RESPIRATORY: Clear to auscultation. No wheezes, rales, or rhonchi. Decreased breath sounds at the bases. GASTROINTESTINAL: Abdomen soft, non-tender, nondistended. Bowel sounds are present and normoactive. No hepato-splenomegaly, or palpable masses. No guarding. GENITOURINARY: Nolen catheter in place, urine looks clear MUSCULOSKELETAL: Extremities without clubbing, cyanosis, or edema. No calf tenderness. NEUROLOGICAL: Interactive. Moving extremities. No babinski or ankle clonus LINE: PIV with no evidence of infection Assessment & Plan Remarks IMPRESSION Sepsis on presentation - has UTI - PNA Hematuria, resolved NSTEMI Multiple Abx allergy - has tolerated carbapenems in the past RECOMMENDATION Continue Azactam for GNR coverage Stop Zyvox Continue Doxycyline for atypical coverage Repeat CXR Monitor temps Follow culture and adjust antibiotics Monitor progress Consuelo Nation MD Aug 25, 2016 10:32
--- NOTE | 2016-08-25 12:45 | RADRPT ---
EXAM DATE/TIME: 08/25/2016 10:39 [facility] COMPARISON: CHEST PA & LAT, August 22, 2016, 10:37. CHEST SINGLE AP, August 19, 2016, 12:59. INDICATIONS : Cough MEDICAL HISTORY : Hypertension. Stroke. Parkinson's SURGICAL HISTORY : None. ENCOUNTER: Initial ACUITY: 4 - 6 days PAIN SCORE: 0/10 LOCATION: Bilateral chest FINDINGS: Portable AP view of the chest demonstrates a normal-sized cardiac silhouette. There are bibasilar ple ural-parenchymal opacities that have increased from the prior study. No pneumothorax is visualized. B ones and soft tissues demonstrate no acute finding. CONCLUSION: Increased bibasilar opacities since the prior study. These likely represent small pleural effusions w ith associated volume loss and/or airspace consolidation. Freddie Grey MD on August 25, 2016 at 12:43 Board Certified Radiologist. This report was verified electronically.
[2016-08-25] MEDS: POTASSIUM CHLORIDE INJ 10 MEQ in DEXT 5%-NACL 0.9% 1000 ML INJ 1,000 ML IV SCH (14:22)
[2016-08-25] MEDS: ACETAMINOPHEN/HYDROcodone 325 MG/5 MG TAB PO PRN (15:15)
[2016-08-25] MEDS: DOXYCYCLINE HYCLATE 100 MG CAP PO SCH (23:18)
[2016-08-25] MEDS: ATORVASTATIN 10 MG TAB PO SCH (23:19)
[2016-08-26] VITALS (8 sets, daily range): BP systolic 114–140; BP diastolic 79–97; PULSE 72–96; RESP 16–18; TEMP 96.9–98.6; O2SAT 96–99
[2016-08-26] MEDS: POTASSIUM CHLORIDE INJ 10 MEQ in DEXT 5%-NACL 0.9% 1000 ML INJ 1,000 ML IV SCH ×2 (03:50→15:00)
[2016-08-26] MEDS: CARBIDOPA/LEVODOPA 25 MG/100 MG TAB PO SCH ×3 (05:38→20:30)
[2016-08-26] MEDS: ACETAMINOPHEN/HYDROcodone 325 MG/5 MG TAB PO PRN ×2 (05:38→14:15)
[2016-08-26] MEDS: AZTREONAM INJ 2,000 MG in SODIUM CHLORIDE 0.9% INJ 100 ML IV SCH ×2 (05:38→17:33)
[2016-08-26 07:09] LABS: BASOPHIL # 0.1 TH/MM3 (0-0.2); BASOPHIL % 0.5 % (0.0-2.0); EOSINOPHIL # 0.7 TH/MM3 (0-0.4); HEMATOCRIT 33.3 % (39.0-51.0); HEMO FLAGS DIFF FINAL; LYMPH % 5.8 % (9.0-44.0); LYMPHOCYTE # 0.8 TH/MM3 (1.0-4.8); MEAN CELL VOLUME 90.7 FL (80.0-100.0); MEAN CORPUSCULAR HEMOGLOBIN 29.9 PG (27.0-34.0); MEAN CORPUSCULAR HGB CONC 32.9 % (32.0-36.0); MONO % 5.1 % (0.0-8.0); NEUT % 83.6 % (16.0-70.0); PLATELET COUNT 256 TH/MM3 (150-450); RED BLOOD COUNT 3.67 MIL/MM3 (4.50-5.90); RED CELL DISTRIBUTION WIDTH 16.5 % (11.6-17.2); WHITE BLOOD COUNT 14.4 TH/MM3 (4.0-11.0)
[2016-08-26 07:41] LABS: BICARBONATE 17.1 MEQ/L (21.0-32.0); POTASSIUM 4.3 MEQ/L (3.5-5.1)
[2016-08-26] MEDS: METOPROLOL TARTRATE 25 MG TAB PO SCH ×2 (07:56→20:34)
[2016-08-26] MEDS: PANTOPRAZOLE SOD 40 MG DELAYED RELEASE TAB PO SCH ×2 (07:56→20:31)
[2016-08-26] MEDS: DOXYCYCLINE HYCLATE 100 MG CAP PO SCH ×2 (08:03→20:30)
[2016-08-26] MEDS: SODIUM CHLORIDE 0.9% FLUSH 5 ML FLUSH FLUSH SCH ×2 (08:03→20:31)
[2016-08-26] MEDS: DOCUSATE SODIUM 100 MG CAP PO SCH ×2 (08:04→20:30)
--- NOTE | 2016-08-26 08:49 | HHI.FPPN ---
Subjective Remarks V WEAK V CONGESTED D/W PT D/W RN Objective Vitals Vital Signs Date Time Temp Pulse Resp B/P Pulse Ox O2 Delivery O2 Flow Rate FiO2 08/26/16 08:00 97.0 84 16 127/80 98 08/26/16 04:00 96.9 95 18 114/87 98 08/26/16 00:00 97.6 96 18 140/97 98 08/25/16 20:04 84 08/25/16 20:00 96.9 113 17 127/87 98 08/25/16 15:30 97.5 91 20 106/86 97 08/25/16 15:24 71 08/25/16 11:18 97.8 81 20 113/72 96 08/25/16 10:53 85 I/O 08/25/16 08/25/16 08/25/16 08/26/16 08/26/16 08/26/16 07:00 15:00 23:00 07:00 15:00 23:00 Intake Total 2256 ml 120 ml 1478 ml 600 ml Output Total 451 ml 350 ml 400 ml Balance 2256 ml -331 ml 1128 ml 200 ml Intake Oral 120 ml IV Total 2256 ml 1478 ml 600 ml Output Urine Total 450 ml 350 ml 400 ml Stool Total 1 ml # Bowel Movements 2 Result Diagram: 08/26/16 0615 08/26/16 0540 Objective Remarks GENERAL: SKIN: Warm and dry. HEAD: Atraumatic. Normocephalic. EYES: Pupils equal and round. No scleral icterus. No injection or drainage. ENT: No nasal bleeding or discharge. Mucous membranes pink and moist. NECK: Trachea midline. No JVD. CARDIOVASCULAR: Regular rate and rhythm. RESPIRATORY: V HARSH COUGH, B R/R TO APICES, GASTROINTESTINAL: Abdomen soft, non-tender, nondistended. Hepatic and splenic margins not palpable. MUSCULOSKELETAL: Extremities without clubbing, cyanosis, or edema. No obvious deformities. NEUROLOGICAL: Awake and alert. No obvious cranial nerve deficits. Motor grossly within normal limits. 1 out of 5 muscle strength in the arms and legs. Normal speech. PSYCHIATRIC: Appropriate mood and affect; insight and judgment normal. Medications and IVs Current Medications Medications (Trade) Dose Ordered Sig/Nai Route Start Time Stop Time Status Last Admin (Tylenol) 325 mg Q6H PRN PO 08/19/16 17:30 (Lipitor) 10 mg HS PO 08/19/16 21:00 08/25/16 23:19 (Sinemet 25-100 Mg) 1 tab Q8HR PO 08/19/16 22:00 08/26/16 05:38 (Plavix) 75 mg DAILY PO 08/20/16 09:00 Hold 08/20/16 08:20 (Colace) 100 mg BID PO 08/19/16 21:00 08/25/16 23:20 (Protonix) 40 mg BID PO 08/19/16 21:00 08/26/16 07:56 (Robitussin Dm 200-20 Mg/10 ml Liq) 10 ml Q4H PRN PO 08/19/16 18:00 08/22/16 21:24 (NS Flush) 2 ml UNSCH PRN FLUSH 08/19/16 17:30 (NS Flush) 2 ml BID FLUSH 08/19/16 21:00 08/23/16 10:42 (Tylenol) 650 mg Q4H PRN PO 08/19/16 17:30 08/24/16 21:44 (Zofran Inj) 4 mg Q6H PRN IVP 08/19/16 17:30 (Dulcolax Supp) 10 mg DAILY PRN [place] 08/19/16 17:30 (Milk Of Magnesia Liq) 30 ml Q12H PRN PO 08/19/16 17:30 (Ambien) 5 mg HS PRN PO 08/19/16 17:30 08/22/16 01:11 (Heparin Inj) 5,000 units Q12H SQ 08/19/16 18:00 Hold 08/20/16 17:46 (Narcan Inj) 0.4 mg UNSCH PRN IV 08/19/16 17:30 ([place] 5-325 Mg) 1 tab Q4H PRN PO 08/19/16 17:45 08/26/16 05:38 (Catapres) 0.1 mg Q6H PRN PO 08/19/16 17:45 Enalaprilat 2.5 mg 2.5 mg Q6H PRN IV PUSH 08/19/16 17:45 (Azactam Inj/NS Inj) 100 ml @ 200 mls/hr Q12H IV 08/22/16 17:30 08/26/16 05:38 Metoprolol Tartrate 12.5 mg 12.5 mg Q12HR PO 08/23/16 21:00 08/26/16 07:56 (KCl Inj/D5W-NS 1000 ml Inj) 1,005 ml @ 75 mls/hr [id number] IV 08/23/16 20:00 08/26/16 03:50 (Vibramycin) 100 mg BID PO 08/25/16 21:00 08/26/16 08:03 Date of Insertion: Aug 19, 2016 A/P Assessment and Plan Sepsis Pneumonia- +infiltrate left lobe. + aspiration. Continued leukocytosis CHRONIC ANDREA New UTI- gram negative rods on UA Azactam from Gram negative coverage Zyvox for MRSA Doxycycline for atypical coverage ff cultures ID service ff seen by speech therapist- diet thickened pureed. 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 no plan for intervention per Cardiology Parkinson's disease Deconditioning PT/OT consult. Out of bed to chair daily. Sacral erythema- turn patient q 2 hours wound care team consult Dietary consult - nutrition recommendations doubt if oral intake will need nutritional requirement maybe a PEG candidate PPI for GI prophylaxis Mechanical prophylaxis- TEDs/SCDs. no chemical prophylaxis- patient had gross hematuria Fer Ace MD Aug 26, 2016 08:49
--- NOTE | 2016-08-26 20:27 | RADRPT ---
EXAM DATE/TIME: 08/26/2016 20:00 [facility] COMPARISON: No previous studies available for comparison. INDICATIONS : Right arm pain and swelling. MEDICAL HISTORY : None. SURGICAL HISTORY : None. ENCOUNTER: Initial ACUITY: 1 day PAIN SCORE: Non-responsive. LOCATION: Right arm. FINDINGS: The right humerus is intact and has normal morphology. Some patchy calcification seen in the right subacromial space suggesting the likelihood of calcific t endinitis/bursitis. There seems to be some swelling anteriorly of the soft tissues of the distal arm. The this is nonspec ific. CONCLUSION: 1. No abnormality seen in the right humerus. 2. Apparent soft tissue swelling distally. No radiopaque foreign body seen. 3. Suspected calcific tendinitis/bursitis of the right rotator cuff. Freddie Heredia MD on August 26, 2016 at 20:24 Board Certified Radiologist. This report was verified electronically.
--- NOTE | 2016-08-26 20:29 | RADRPT ---
EXAM DATE/TIME: 08/26/2016 20:04 [facility] COMPARISON: No previous studies available for comparison. INDICATIONS : Right arm pain and swelling. MEDICAL HISTORY : None. SURGICAL HISTORY : None. ENCOUNTER: Initial ACUITY: 1 day PAIN SCORE: Non-responsive. LOCATION: Right arm. FINDINGS: The right radius and ulna are intact and have normal morphology. Soft tissues of the forearm appear s wollen, especially proximally. A repeat foreign body seen. At the wrist, chondrocalcinosis is evident, most conspicuous of the triangular-fibrocartilage. There is widening of the scapholunate interval, measures about 5 mm in the imaged position. CONCLUSION: 1. No acute abnormality demonstrated of the right radius or ulna. 2. Nonspecific soft tissue swelling of the forearm, especially proximally. No radiopaque foreign body seen. 3. 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 Freddie Heredia MD on August 26, 2016 at 20:26 Board Certified Radiologist. This report was verified electronically.
[2016-08-26] MEDS: ATORVASTATIN 10 MG TAB PO SCH (20:30)
[2016-08-27] VITALS (8 sets, daily range): BP systolic 111–150; BP diastolic 66–95; PULSE 82–100; RESP 16–18; TEMP 96.1–99.1; O2SAT 94–98
[2016-08-27] MEDS: POTASSIUM CHLORIDE INJ 10 MEQ in DEXT 5%-NACL 0.9% 1000 ML INJ 1,000 ML IV SCH ×2 (05:44→23:48)
[2016-08-27] MEDS: AZTREONAM INJ 2,000 MG in SODIUM CHLORIDE 0.9% INJ 100 ML IV SCH ×2 (05:45→17:41)
[2016-08-27] MEDS: CARBIDOPA/LEVODOPA 25 MG/100 MG TAB PO SCH ×3 (05:45→20:26)
[2016-08-27 07:21] LABS: AUTOMATED NEUTROPHIL # 12.2 TH/MM3 (1.8-7.7); BASOPHIL # 0.4 TH/MM3 (0-0.2); BASOPHIL % 2.4 % (0.0-2.0); EOSINOPHIL # 0.6 TH/MM3 (0-0.4); EOSINOPHIL % 4.2 % (0.0-4.0); HEMATOCRIT 34.8 % (39.0-51.0); LYMPH % 7.1 % (9.0-44.0); LYMPHOCYTE # 1.1 TH/MM3 (1.0-4.8); MEAN CELL VOLUME 92.2 FL (80.0-100.0); MEAN CORPUSCULAR HGB CONC 32.5 % (32.0-36.0); MONO % 6.4 % (0.0-8.0); NEUT % 79.9 % (16.0-70.0); PLATELET COUNT 270 TH/MM3 (150-450); RED BLOOD COUNT 3.77 MIL/MM3 (4.50-5.90); RED CELL DISTRIBUTION WIDTH 16.5 % (11.6-17.2); WHITE BLOOD COUNT 15.3 TH/MM3 (4.0-11.0)
[2016-08-27 07:29] LABS: BICARBONATE 19.5 MEQ/L (21.0-32.0); POTASSIUM 3.8 MEQ/L (3.5-5.1)
[2016-08-27 07:34] LABS: HEMO FLAGS DIFF FINAL
--- NOTE | 2016-08-27 08:57 | PQ ---
Physician Query Response Document PATIENT: CROW YANEZ : 1935 ADMIT DATE: 08/19/2016 2:40 PM DISCH DATE: RESPONDING PROVIDER #: Lyubov QUERY TEXT: Conflicting Documentation Clarification Documentation of multiple diagnoses for the same clinical presentation appears in the record: RADIAT ION CYSTITIS AND UTI Please clarify which diagnosis is being treated Please also document if the condition is: -- Confirmed and current -- Confirmed, treated and resolved -- Ruled out -- Other, please specify The patient's Clinical Indicators include: 08/20/16 Admission Diagnosis weakness Diagnoses: (1) Weakness (2) Cough (3) NSTEMI (non-ST elevated myocardial infarction) PER 08/21/16 PROGRESS NOTE - called w gross hematuria in andrea 08/21/16 UROLOGY CONSULTED - ASSESSMENT STATES: 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 A [address] catheter inserted at bedside, irrigated to clear. PER 08/23/16 PROGRESS NOTE - New UTI - gram negative rods on UA PER 08/25/16 PROGRESS NOTE - New UTI- gram negative rods on UA Azactam from Gram negative coverage Zyvox for MRSA Doxycycline for atypical coverage ff cultures ID service ff Query created by: Jeanette Bailey on 08/25/2016 11:27 AM RESPONSE TEXT: NEW UTI, HEMATURIA DUE TO RADIATION CYSTITIS Electronically signed by: Fer Ace MD 08/27/2016 8:53 AM
[2016-08-27] MEDS: SODIUM CHLORIDE 0.9% FLUSH 5 ML FLUSH FLUSH SCH ×2 (09:00→20:21)
[2016-08-27] MEDS: DOCUSATE SODIUM 100 MG CAP PO SCH ×2 (09:51→20:24)
[2016-08-27] MEDS: METOPROLOL TARTRATE 25 MG TAB PO SCH ×2 (09:51→20:25)
[2016-08-27] MEDS: DOXYCYCLINE HYCLATE 100 MG CAP PO SCH ×2 (09:51→20:26)
[2016-08-27] MEDS: PANTOPRAZOLE SOD 40 MG DELAYED RELEASE TAB PO SCH ×2 (09:51→20:26)
--- NOTE | 2016-08-27 09:54 | HHI.FPPN ---
Subjective Remarks STILL V WEAK NO EFFORT D/W RN Objective Vitals Vital Signs Date Time Temp Pulse Resp B/P Pulse Ox O2 Delivery O2 Flow Rate FiO2 08/27/16 08:00 96.1 91 16 133/82 97 08/27/16 04:00 98.7 96 17 111/88 98 08/27/16 00:00 99.1 90 17 148/95 98 08/26/16 23:34 81 08/26/16 20:00 98.6 84 17 134/79 99 08/26/16 16:00 98.6 86 16 135/85 96 08/26/16 12:00 97.6 72 16 137/95 96 08/26/16 10:42 72 I/O 08/26/16 08/26/16 08/26/16 08/27/16 08/27/16 08/27/16 07:00 15:00 23:00 07:00 15:00 23:00 Intake Total 600 ml 240 ml 1397 ml 600 ml Output Total 400 ml 450 ml 200 ml 700 ml Balance 200 ml -210 ml 1197 ml -100 ml Intake Oral 240 ml IV Total 600 ml 1397 ml 600 ml Output Urine Total 400 ml 450 ml 200 ml 700 ml # Bowel Movements 2 1 1 Result Diagram: 08/27/1662908/27/16 06 Objective Remarks GENERAL: SKIN: Warm and dry. HEAD: Atraumatic. Normocephalic. EYES: Pupils equal and round. No scleral icterus. No injection or drainage. ENT: No nasal bleeding or discharge. Mucous membranes pink and moist. NECK: Trachea midline. No JVD. CARDIOVASCULAR: Regular rate and rhythm. RESPIRATORY: V HARSH COUGH, B R/R TO APICES, GASTROINTESTINAL: Abdomen soft, non-tender, nondistended. Hepatic and splenic margins not palpable. MUSCULOSKELETAL: Extremities without clubbing, cyanosis, or edema. No obvious deformities. NEUROLOGICAL: Awake and alert. No obvious cranial nerve deficits. Motor grossly within normal limits. 1 out of 5 muscle strength in the arms and legs. Normal speech. PSYCHIATRIC: Appropriate mood and affect; insight and judgment normal. Medications and IVs Current Medications Medications (Trade) Dose Ordered Sig/Nai Route Start Time Stop Time Status Last Admin (Tylenol) 325 mg Q6H PRN PO 08/19/16 17:30 (Lipitor) 10 mg HS PO 08/19/16 21:00 08/26/16 20:30 (Sinemet 25-100 Mg) 1 tab Q8HR PO 08/19/16 22:00 08/27/16 05:45 (Plavix) 75 mg DAILY PO 08/20/16 09:00 Hold 08/20/16 08:20 (Colace) 100 mg BID PO 08/19/16 21:00 08/26/16 20:30 (Protonix) 40 mg BID PO 08/19/16 21:00 08/26/16 20:31 (Robitussin Dm 200-20 Mg/10 ml Liq) 10 ml Q4H PRN PO 08/19/16 18:00 08/22/16 21:24 (NS Flush) 2 ml UNSCH PRN FLUSH 08/19/16 17:30 (NS Flush) 2 ml BID FLUSH 08/19/16 21:00 08/26/16 20:31 (Tylenol) 650 mg Q4H PRN PO 08/19/16 17:30 08/24/16 21:44 (Zofran Inj) 4 mg Q6H PRN IVP 08/19/16 17:30 (Dulcolax Supp) 10 mg DAILY PRN [place] 08/19/16 17:30 (Milk Of Magnesia Liq) 30 ml Q12H PRN PO 08/19/16 17:30 (Ambien) 5 mg HS PRN PO 08/19/16 17:30 08/22/16 01:11 (Heparin Inj) 5,000 units Q12H SQ 08/19/16 18:00 Hold 08/20/16 17:46 (Narcan Inj) 0.4 mg UNSCH PRN IV 08/19/16 17:30 ([place] 5-325 Mg) 1 tab Q4H PRN PO 08/19/16 17:45 08/26/16 14:15 (Catapres) 0.1 mg Q6H PRN PO 08/19/16 17:45 Enalaprilat 2.5 mg 2.5 mg Q6H PRN IV PUSH 08/19/16 17:45 (Azactam Inj/NS Inj) 100 ml @ 200 mls/hr Q12H IV 08/22/16 17:30 08/27/16 05:45 Metoprolol Tartrate 12.5 mg 12.5 mg Q12HR PO 08/23/16 21:00 08/26/16 20:34 (KCl Inj/D5W-NS 1000 ml Inj) 1,005 ml @ 75 mls/hr [id number] IV 08/23/16 20:00 08/27/16 05:44 (Vibramycin) 100 mg BID PO 08/25/16 21:00 08/26/16 20:30 Urinary Catheter: Yes Assessment to: Continue Date of Insertion: Aug 19, 2016 A/P Assessment and Plan Sepsis Pneumonia- +infiltrate left lobe. + aspiration. Continued leukocytosis CHRONIC ANDREA New UTI- gram negative rods on UA Azactam from Gram negative coverage Zyvox for MRSA Doxycycline for atypical coverage ff cultures ID service ff seen by speech therapist- diet thickened pureed. 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 no plan for intervention per Cardiology Parkinson's disease FTT and Deconditioning PT/OT consult. Out of bed to chair daily. Palliative consult. Sacral erythema- turn patient q 2 hours wound care team consult Dietary consult - nutrition recommendations doubt if oral intake will need nutritional requirement maybe a PEG candidate PPI for GI prophylaxis Mechanical prophylaxis- TEDs/SCDs. no chemical prophylaxis- patient had gross hematuria Fer Ace MD Aug 27, 2016 09:54
--- NOTE | 2016-08-27 11:43 | PD.CONS ---
Consult Service Palliative Care Consult Requested By Dr. Fer Ace . Primary Care Physician Fer Ace MD Reason for Consultation a. To assist with evaluation and management of symptoms including: Altered mental status, weakness. b. To assist medical decision maker(s) with: better understanding of current medical conditions; weighing benefits/burdens of medical treatment options; making medical treatment decisions. . HPI History of Present Illness is an 81-year-old male presented to [facility] ED on 08/19/16 for evaluation of generalized overall decline in functional ability and progressively worsening dysphagia. He is a resident at [facility]. Patient is a poor historian and most of his history was obtained from chart records. Patient denied any chest pain or shortness of breath. No known history of cardiac issues. Patient had bronchitis last month and was treated with antibiotics. His past medical history is significant for anxiety, osteoarthritis, pseudogout, CVA, hypertension, GERD and Parkinson's. Diagnostic findings in the ED: * Vital signs: Pulse 85, respirations 16, BP 105/70, oxygen saturation 97% on room air and oral temperature 98.6 * WBC: 17.4, hemoglobin 12.6, hematocrit 38.1, platelets 227, neutrophils 80.6% * Sodium: 141, potassium 3.7, chloride 106, carbon dioxide 24.0, glucose 82, calcium 8.8, phosphorus 3.1, magnesium 1.8 * BUN: 23, creatinine 1.10, GFR 64 * Lactic acid: 1.4 * Total bilirubin: 1.0, AST 25, ALT 21, alkaline phosphatase 91 * Total creatine kinase: 128, CK-MB 1.5 * Troponin: 0.64 * Total protein: 6.6, albumin 2.9 * PT: 12.7, INR 1.1, APTT 32.9 * Urinalysis normal * Blood culture: Negative * Negative for flu A and B antigen * Chest x-ray: Normal exam * Electrocardiogram showed a new right bundle branch compared to 2010. Patient's was found to have a NSTEMI while in the ED.Cardiology was consulted and felt he patient is not a candidate for aggressive interventions. Recommendations were made for conservative management. Patient apparently has a remote history of prostate cancer. He developed gross hematuria on 08/21/16, possibly secondary to radiation cystitis. Urology was consulted for evaluation. Heparin and Plavix were placed on hold 2/2 hematuria and PRN irrigation was ordered. Urine culture with Proteus mirabilis. Renal ultrasound was normal except for debris within the bladder and a thickened wall. Patient's initial white blood count was 17,000 on admission, trending downward at 15,300 today 08/27/16. Remains afebrile. Infectious disease is following. = CXR on 08/22/16 showed a new infiltrate in the left base. = Blood culture on 08/20/16 with staph epidermis, follow-up negative. Follow up Chest X-ray on 08/25/16 indicate increased bibasilar opacities, likely representing small pleural effusions with associated volume loss and/or airspace consolidation. Patient developed pain and swelling in right arm, imaging showed no acute abnormalities. Palliative Care was consulted to assist with symptom management and to discuss with the patient/family the benefits and burdens of her current illnesses and the options regarding future care. Patient presents lying in bed on NAD. + cough. He is oriented to person and place. Lethargic, appears to fall asleep throughout visit. Answers simple questions, follows some commands. Having sudden onset of tearfulness, intermittent confusion also. . Function/Cognitive Trajectory Met with patient daughter at patient's bedside. Patient is poor historian, but his daughter reports he was always active and independent. The patient has had an acute decline over the past 12 months as evidenced by weight loss (20lb in the past 12 months), confusion and increased weakness. The patient is now incontinent of B/B. He requires assistance with feeding, dressing and bathing. He needs assist to transfer from bed to chair. He was hospitalized in August, after a fall which resulted in an unspecified back injury/ fracture. He went to a SNF upon discharge. The patient was rehospitalized in April, after having a CVA. . Review of Systems ROS Limitations: Altered Mental Status, Poor Historian Constitutional: COMPLAINS OF: Fatigue, Generalized weakness Ears, nose, mouth, throat: DENIES: Epistaxis Respiratory: COMPLAINS OF: Cough, DENIES: Shortness of breath Cardiovascular: COMPLAINS OF: Dyspnea on Exertion Gastrointestinal: COMPLAINS OF: Difficulty Swallowing, DENIES: Abdominal pain Genitourinary: COMPLAINS OF: Hematuria Musculoskeletal: DENIES: Joint pain, Back pain, Neck pain Hematologic/Lymphatics: DENIES: History of transfusions Neurologic: COMPLAINS OF: Localized weakness Psychiatric: COMPLAINS OF: Anxiety, Confusion Past Family Social History Coded Allergies: Cipro (Verified Allergy, Mild, RASH, 08/19/16) E-Mycin (Verified Allergy, Mild, DIARRHEA, 08/19/16) Keflex (Verified Allergy, Mild, UNKNOWN, 08/19/16) causes rash Past Medical History Anxiety Osteoarthritis Gout CVA Hypertension GERD Parkinson's . Past Surgical History Internal hernia repair Bilateral cataract surgery Tonsillectomy . Reported Medications Milk of Magnesia Liq (Magnesium Hydroxide) 400 Mg/5 Ml Susp 30 Ml PO ONCE Clopidogrel (Clopidogrel Bisulfate) 75 Mg Tab 75 Mg PO DAILY D3 (Cholecalciferol) 1,000 Unit Cap Protonix (Pantoprazole Sodium) 40 Mg Tab 40 Mg PO BID Tylenol (Acetaminophen) 325 Mg Cap 325 Mg PO Q6H PRN Dulcolax Stool Softener (Docusate Sodium) 100 Mg Cap 100 Mg PO BID Carbidopa-Levodopa 25-100 Mg Tab 1 Tab PO Q8HR Atorvastatin (Atorvastatin Calcium) 10 Mg Tab 10 Mg PO HS Nystatin Topical (Nystatin) 100,000 unit/gm Cream 1 Applic TOPICAL Q6HR Multi-Vitamin Daily (Multiple Vitamin) 1 Tab Tab 1 Tab PO DAILY Robitussin Cough Chest Congestion (Dextromethorphan-Guaifenesin) 10-200 Mg Cap 1 Cap PO Q4H PRN . Current Medications Medications (Trade) Dose Ordered Sig/Nai Route Start Time Stop Time Status Last Admin (Tylenol) 325 mg Q6H PRN PO 08/19/16 17:30 (Lipitor) 10 mg HS PO 08/19/16 21:00 08/26/16 20:30 (Sinemet 25-100 Mg) 1 tab Q8HR PO 08/19/16 22:00 08/27/16 05:45 (Plavix) 75 mg DAILY PO 08/20/16 09:00 Hold 08/20/16 08:20 (Colace) 100 mg BID PO 08/19/16 21:00 08/27/16 09:51 (Protonix) 40 mg BID PO 08/19/16 21:00 08/27/16 09:51 (Robitussin Dm 200-20 Mg/10 ml Liq) 10 ml Q4H PRN PO 08/19/16 18:00 08/22/16 21:24 (NS Flush) 2 ml UNSCH PRN FLUSH 08/19/16 17:30 (NS Flush) 2 ml BID FLUSH 08/19/16 21:00 08/26/16 20:31 (Tylenol) 650 mg Q4H PRN PO 08/19/16 17:30 08/24/16 21:44 (Zofran Inj) 4 mg Q6H PRN IVP 08/19/16 17:30 (Dulcolax Supp) 10 mg DAILY PRN MO 08/19/16 17:30 (Milk Of Magnkedar Liq) 30 ml Q12H PRN PO 08/19/16 17:30 (Ambien) 5 mg HS PRN PO 08/19/16 17:30 08/22/16 01:11 (Heparin Inj) 5,000 units Q12H SQ 08/19/16 18:00 Hold 08/20/16 17:46 (Narcan Inj) 0.4 mg UNSCH PRN IV 08/19/16 17:30 (Tyler 5-325 Mg) 1 tab Q4H PRN PO 08/19/16 17:45 08/26/16 14:15 (Catapres) 0.1 mg Q6H PRN PO 08/19/16 17:45 Enalaprilat 2.5 mg 2.5 mg Q6H PRN IV PUSH 08/19/16 17:45 (Azactam Inj/NS Inj) 100 ml @ 200 mls/hr Q12H IV 08/22/16 17:30 08/27/16 05:45 Metoprolol Tartrate 12.5 mg 12.5 mg Q12HR PO 08/23/16 21:00 08/27/16 09:51 (KCl Inj/D5W-NS 1000 ml Inj) 1,005 ml @ 75 mls/hr [id number] IV 08/23/16 20:00 08/27/16 05:44 (Vibramycin) 100 mg BID PO 08/25/16 21:00 08/27/16 09:51 . Family History Unknown family history . Substance Use Tobacco: None known Alcohol: None known Prescription med abuse: None known Illicits: None known . Psychosocial History Patient was born and raised in [place]. He is currently single but was 4 times per his daughter, Emily. Patient has 5 adult children (Lo, Ace, Mariza, Manjit and Emily). 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 He moved to [place] after inheriting a house locally. After relocating, the patient volunteered at [facility] in [place] for many years. . Spiritual/Cultural Factors [employer] is[employer] . Ethical and Legal Issues Per [place] statutes, on the absence of written advanced directives healthcare proxy decision-making falls to the majority of the patient's 5 adult children. . Physical Exam Vital Signs Date Time Temp Pulse Resp B/P Pulse Ox O2 Delivery O2 Flow Rate FiO2 08/27/16 08:00 96.1 91 16 133/82 97 08/27/16 04:00 98.7 96 17 111/88 98 08/27/16 00:00 99.1 90 17 148/95 98 08/26/16 23:34 81 08/26/16 20:00 98.6 84 17 134/79 99 08/26/16 16:00 98.6 86 16 135/85 96 08/26/16 12:00 97.6 72 16 137/95 96 . 08/26/16 08/27/16 19:00 07:00 Intake Total 1037 ml 1200 ml Output Total 450 ml 900 ml Balance 587 ml 300 ml Intake Oral 240 ml IV Total 797 ml 1200 ml Output Urine Total 450 ml 900 ml # Bowel Movements 1 1 . Exam CONSTITUTIONAL/GENERAL: This is a frail appearing, elderly male patient in no apparent distress. TUBES/LINES/DRAINS: PIV, Nolen SKIN: No jaundice, rashes, or lesions. Skin temperature appropriate. Not diaphoretic. Scars on upper extremities bilaterally HEAD: Atraumatic. Normocephalic. EYES: Pupils equal and round and reactive. Extraocular motions intact. No scleral icterus. No injection or drainage. Fundi not examined. ENT: Hearing grossly normal. Nose without bleeding or purulent drainage. . NECK: Trachea midline. Supple, nontender. No palpable thyroid enlargement or nodularity. CARDIOVASCULAR: Regular rate and rhythm without murmurs, gallops, or rubs. No JVD. Peripheral pulses symmetric. RESPIRATORY/CHEST: Intermittent tachypnea, dry cough, diminished air exchange GASTROINTESTINAL: Abdomen soft, non-tender, nondistended. No hepato-splenomegaly , or palpable masses. No guarding. Bowel sounds present. GENITOURINARY: Without palpable bladder distension. Nolen catheter in place. MUSCULOSKELETAL: Extremities without clubbing, cyanosis, or edema. LYMPHATICS: No palpable cervical or supraclavicular adenopathy. NEUROLOGICAL: Oriented to person and place, lethargic. Answers simple questions , follows some commands. PSYCHIATRIC: Intermittently anxious, having episodes of sudden tearfulness for no apparent reason. . Diagnostic Tests Laboratory Laboratory Tests Test 08/25/16 08/26/16 08/26/16 08/27/16 06:00 05:40 06:15 06:30 White Blood Count 13.3 TH/MM3 14.4 TH/MM3 15.3 TH/MM3 (4.0-11.0) (4.0-11.0) (4.0-11.0) Red Blood Count 3.65 MIL/MM3 3.67 MIL/MM3 3.77 MIL/MM3 (4.50-5.90) (4.50-5.90) (4.50-5.90) Hemoglobin 11.1 GM/DL 11.0 GM/DL 11.3 GM/DL (13.0-17.0) (13.0-17.0) (13.0-17.0) Hematocrit 33.4 % 33.3 % 34.8 % (39.0-51.0) (39.0-51.0) (39.0-51.0) Mean Corpuscular Volume 91.5 FL 90.7 FL 92.2 FL (80.0-100.0) (80.0-100.0) (80.0-100.0) Mean Corpuscular Hemoglobin 30.4 PG 29.9 PG 30.0 PG (27.0-34.0) (27.0-34.0) (27.0-34.0) Mean Corpuscular Hemoglobin 33.2 % 32.9 % 32.5 % Concent (32.0-36.0) (32.0-36.0) (32.0-36.0) Red Cell Distribution Width 16.4 % 16.5 % 16.5 % (11.6-17.2) (11.6-17.2) (11.6-17.2) Platelet Count 270 TH/MM3 256 TH/MM3 270 TH/MM3 (150-450) (150-450) (150-450) Mean Platelet Volume 8.8 FL 8.7 FL 8.7 FL (7.0-11.0) (7.0-11.0) (7.0-11.0) Neutrophils (%) (Auto) 81.3 % 83.6 % 79.9 % (16.0-70.0) (16.0-70.0) (16.0-70.0) Lymphocytes (%) (Auto) 7.4 % 5.8 % 7.1 % (9.0-44.0) (9.0-44.0) (9.0-44.0) Monocytes (%) (Auto) 5.4 % (0.0-8.0) 5.1 % (0.0-8.0) 6.4 % (0.0-8.0) Eosinophils (%) (Auto) 5.4 % (0.0-4.0) 5.0 % (0.0-4.0) 4.2 % (0.0-4.0) Basophils (%) (Auto) 0.5 % (0.0-2.0) 0.5 % (0.0-2.0) 2.4 % (0.0-2.0) Neutrophils # (Auto) 10.8 TH/MM3 12.0 TH/MM3 12.2 TH/MM3 (1.8-7.7) (1.8-7.7) (1.8-7.7) Lymphocytes # (Auto) 1.0 TH/MM3 0.8 TH/MM3 1.1 TH/MM3 (1.0-4.8) (1.0-4.8) (1.0-4.8) Monocytes # (Auto) 0.7 TH/MM3 0.7 TH/MM3 1.0 TH/MM3 (0-0.9) (0-0.9) (0-0.9) Eosinophils # (Auto) 0.7 TH/MM3 0.7 TH/MM3 0.6 TH/MM3 (0-0.4) (0-0.4) (0-0.4) Basophils # (Auto) 0.1 TH/MM3 0.1 TH/MM3 0.4 TH/MM3 (0-0.2) (0-0.2) (0-0.2) CBC Comment DIFF FINAL DIFF FINAL DIFF FINAL Differential Comment Sodium Level 142 MEQ/L 142 MEQ/L 141 MEQ/L (136-145) (136-145) (136-145) Potassium Level 3.7 MEQ/L 4.3 MEQ/L 3.8 MEQ/L (3.5-5.1) (3.5-5.1) (3.5-5.1) Chloride Level 109 MEQ/L 112 MEQ/L 111 MEQ/L (98-107) (98-107) (98-107) Carbon Dioxide Level 21.9 MEQ/L 17.1 MEQ/L 19.5 MEQ/L (21.0-32.0) (21.0-32.0) (21.0-32.0) Anion Gap 11 MEQ/L (5-15) 13 MEQ/L (5-15) 11 MEQ/L (5-15) Blood Urea Nitrogen 17 MG/DL (7-18) 14 MG/DL (7-18) 15 MG/DL (7-18) Creatinine 1.01 MG/DL 0.88 MG/DL 0.96 MG/DL (0.60-1.30) (0.60-1.30) (0.60-1.30) Estimat Glomerular Filtration 71 ML/MIN (>89) 83 ML/MIN (>89) 75 ML/MIN (>89) Rate Random Glucose 97 MG/DL 97 MG/DL 107 MG/DL (74-106) (74-106) (74-106) Calcium Level 8.5 MG/DL 8.2 MG/DL 8.3 MG/DL (8.5-10.1) (8.5-10.1) (8.5-10.1) Magnesium Level 1.4 MG/DL (1.5-2.5) . Result Diagram: 08/27/1630 08/27/16629 Imaging Last 72 hours Impressions Radius/Ulna X-Ray 08/26/16 0000 Signed Impressions: Service Date/Time: Friday, August 26, 2016 20:04 - CONCLUSION: 1. No acute abnormality demonstrated of the right radius or ulna. 2. Nonspecific soft tissue swelling of the forearm, especially proximally. No radiopaque foreign body seen. 3. 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 Freddie Heredia MD Humerus X-Ray 08/26/16 0000 Signed Impressions: Service Date/Time: Friday, August 26, 2016 20:00 - CONCLUSION: 1. No abnormality seen in the right humerus. 2. Apparent soft tissue swelling distally. No radiopaque foreign body seen. 3. Suspected calcific tendinitis/bursitis of the right rotator cuff. Freddie Heredia MD Chest X-Ray 08/25/16 0000 Signed Impressions: Service Date/Time: Thursday, August 25, 2016 10:39 - CONCLUSION: Increased bibasilar opacities since the prior study. These likely represent small pleural effusions with associated volume loss and/or airspace consolidation. Freddie Grey MD . Patient/Family Conference Present at Family Conference: Patient's daughter, Emily. . Family Conference Time (mins): 45 Family Conference Location: Bedside Issues Discussed: * Palliative care role, purpose, approach * Additional medical, psychosocial, and spiritual history * Patients general health, functional status, and cognitive changes in the months leading up to the current hospitalization * Patient/family understanding of the current medical problems * Patient/family understanding of prognosis * Patients goals of care as best understood from advance directives and/or conversations and/or values * Current medical treatment options and benefits/burdens of those options * Likely scenarios comparing ongoing aggressive care with a transition to comfort measures only * Questions answered to the best of my ability * Palliative care contact information provided . Assessment and Plan Disease Oriented Problem List: (1) Cough (2) NSTEMI (non-ST elevated myocardial infarction) (3) Hypokalemia (4) Encephalopathy (5) UTI (urinary tract infection) (6) HTN (hypertension) (7) CHAY (acute kidney injury) (8) PNA (pneumonia) Symptom Scale: (1) Weakness (2) Altered mental status Pertinent Non-Medical Issues Psychosocial: Patient was born and raised in [place]. He is currently single but was 4 times per his daughter, Emily. Patient has 5 adult children (Lo, Ace, Mariza, Manjit and Emily). Patient worked for an [employer] for approximately 38 years. He moved to [place] after inheriting a house locally. After relocating, the patient volunteered at [facility] in [place] for many years. Spiritual: [employer] Legal: Per [place] statutes, and absence of written advanced directives healthcare proxy decision-making falls to the majority of the patient's adult children. Ethical issues impacting care: No known ethical issues impacting care at this time. . Important Contacts Emily Torres, daughter: [phone] (CELL); [phone] (HOME); [phone] (WORK) Haydee Vale, friend: [phone] . Prognosis Patient is a 81 year old male patient who has experienced an acute decline over the past 12 months. Patient was independent and active, now requiring assist most ADLs. 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 He is currently hospitalized for medical management of NSTEMI, UTI, bacteremia and pneumonia. Patient is encephalopathic with aggressively worsening weakness. His nutritional intake remains poor. Given this patient's advanced age and overall decline in functional status over a 12 month, it is unlikely the patient will tolerate therapy and his overall prognosis is poor. . Code Status: Full Code Plan * FULL CODE * Decision-making: Patient is not capacitated at this time to designate a health care surrogate. It is not clear if the patient will regain capacity. Per [place] statutes in the absence of written advanced directives healthcare proxy decision making falls to the majority of the patient's adult children. * Goals: Met with patient's daughter (Emily) today, plan to meet again tomorrow 08/27/16. Goals will remain aggressive. * Palliative care contact information provided to patient's daughter, Emily. * Palliative care will continue to follow this patient throughout his hospitalization to establish trust, assist with symptom management and clarification of medical treatment goals. . Thank you for the opportunity to participate in the care of Mr. Aleman. Attestation To help prompt me to consider important information that might be impacting today's encounter and assessment, information from prior notes written by myself or my colleagues may have been "brought forward" into today's note. My signature on this note, however, is an attestation that I personally performed the exam, history, and/or decision-making noted today, and, unless otherwise indicated, the interactions with patient, family, and staff as well as the review of records all occurred today. I also attest that the listed assessment and stated plan reflect my best clinical judgment today based on the combination of historical information, prior notes, and today's exam/ interactions. When time spent is documented, it refers only to time spent today by the signer, or if indicated, combined time spent today by collaborating physician/nurse practitioner. . Gemini Boggs Aug 27, 2016 11:43
--- NOTE | 2016-08-27 15:36 | HHI.IDPN ---
Subjective Subjective Remarks Notes reviewed No fever Still very weak Has good sats UC with Proteus One BC with Staph epi, repeat BC negative Antibiotics Azactam Zyvox Doxycyline Past Medical History Osteoarthritis Gout CVA Hypertension Gastroesophageal reflux disease Parkinson's Vertebral fracture Past Surgical History Right inguinal hernia repair Tonsillectomy Cataract surgery Allergies: Coded Allergies: Cipro (Verified Allergy, Mild, RASH, 08/19/16) E-Mycin (Verified Allergy, Mild, DIARRHEA, 08/19/16) Keflex (Verified Allergy, Mild, UNKNOWN, 08/19/16) causes rash Objective . Vital Signs Date Time Temp Pulse Resp B/P Pulse Ox O2 Delivery O2 Flow Rate FiO2 08/27/16 15:26 98.0 88 17 150/83 96 08/27/16 11:50 97.7 82 16 131/66 97 08/27/16 08:00 96.1 91 16 133/82 97 08/27/16 04:00 98.7 96 17 111/88 98 08/27/16 00:00 99.1 90 17 148/95 98 08/26/16 23:34 81 08/26/16 20:00 98.6 84 17 134/79 99 08/26/16 16:00 98.6 86 16 135/85 96 08/26/16 08/26/16 08/27/16 15:00 23:00 07:00 Intake Total 240 ml 1397 ml 600 ml Output Total 450 ml 200 ml 700 ml Balance -210 ml 1197 ml -100 ml Intake Oral 240 ml IV Total 1397 ml 600 ml Output Urine Total 450 ml 200 ml 700 ml # Bowel Movements 1 1 . Laboratory Tests Test 08/26/16 08/27/16 06:15 06:30 White Blood Count 14.4 TH/MM3 15.3 TH/MM3 Red Blood Count 3.67 MIL/MM3 3.77 MIL/MM3 Hemoglobin 11.0 GM/DL 11.3 GM/DL Hematocrit 33.3 % 34.8 % Mean Corpuscular Volume 90.7 FL 92.2 FL Mean Corpuscular Hemoglobin 29.9 PG 30.0 PG Mean Corpuscular Hemoglobin 32.9 % 32.5 % Concent Red Cell Distribution Width 16.5 % 16.5 % Platelet Count 256 TH/MM3 270 TH/MM3 Mean Platelet Volume 8.7 FL 8.7 FL Neutrophils (%) (Auto) 83.6 % 79.9 % Lymphocytes (%) (Auto) 5.8 % 7.1 % Monocytes (%) (Auto) 5.1 % 6.4 % Eosinophils (%) (Auto) 5.0 % 4.2 % Basophils (%) (Auto) 0.5 % 2.4 % Neutrophils # (Auto) 12.0 TH/MM3 12.2 TH/MM3 Lymphocytes # (Auto) 0.8 TH/MM3 1.1 TH/MM3 Monocytes # (Auto) 0.7 TH/MM3 1.0 TH/MM3 Eosinophils # (Auto) 0.7 TH/MM3 0.6 TH/MM3 Basophils # (Auto) 0.1 TH/MM3 0.4 TH/MM3 CBC Comment DIFF FINAL DIFF FINAL Differential Comment Laboratory Tests Test 08/26/16 08/27/16 05:40 06:30 Sodium Level 142 MEQ/L 141 MEQ/L Potassium Level 4.3 MEQ/L 3.8 MEQ/L Chloride Level 112 MEQ/L 111 MEQ/L Carbon Dioxide Level 17.1 MEQ/L 19.5 MEQ/L Anion Gap 13 MEQ/L 11 MEQ/L Blood Urea Nitrogen 14 MG/DL 15 MG/DL Creatinine 0.88 MG/DL 0.96 MG/DL Estimat Glomerular Filtration 83 ML/MIN 75 ML/MIN Rate Random Glucose 97 MG/DL 107 MG/DL Calcium Level 8.2 MG/DL 8.3 MG/DL Imaging Radius/Ulna X-Ray 08/26/16 0000 Signed Impressions: Service Date/Time: Friday, August 26, 2016 20:04 - CONCLUSION: 1. No acute abnormality demonstrated of the right radius or ulna. 2. Nonspecific soft tissue swelling of the forearm, especially proximally. No radiopaque foreign body seen. 3. 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 Freddie Heredia MD Humerus X-Ray 08/26/16 0000 Signed Impressions: Service Date/Time: Friday, August 26, 2016 20:00 - CONCLUSION: 1. No abnormality seen in the right humerus. 2. Apparent soft tissue swelling distally. No radiopaque foreign body seen. 3. Suspected calcific tendinitis/bursitis of the right rotator cuff. Freddie Heredia MD Chest X-Ray 08/25/16 0000 Signed Impressions: Service Date/Time: Thursday, August 25, 2016 10:39 - CONCLUSION: Increased bibasilar opacities since the prior study. These likely represent small pleural effusions with associated volume loss and/or airspace consolidation. Freddie Grey MD Chest X-Ray 08/22/16 0000 Signed Impressions: Service Date/Time: Monday, August 22, 2016 10:37 - CONCLUSION: New parenchymal opacity left lung. Abe Kirby MD FACR Renal Ultrasound 08/21/16 0000 Signed Impressions: Service Date/Time: August 12:52 - CONCLUSION: Normal examination except for debris within the bladder and a thickened wall with a Nolen catheter of uncertain significance. Bjorn Palma MD Physical Exam GENERAL: Awake, but very weak, NAD SKIN: Warm and dry. No generalized rash HEAD: Atraumatic. Normocephalic. No temporal or scalp tenderness. EYES: Lehr conjunctivae. No scleral icterus, no injection. ENT: No nasal discharge. Moist mucosa NECK: Supple, nontender, no meningeal signs. CARDIOVASCULAR: Regular rate and rhythm without murmurs, gallops, or rubs. RESPIRATORY: Clear to auscultation. No wheezes, rales, or rhonchi. Decreased breath sounds at the bases. GASTROINTESTINAL: Abdomen soft, non-tender, nondistended. Bowel sounds are present and normoactive. No hepato-splenomegaly, or palpable masses. No guarding. GENITOURINARY: Nolen catheter in place, urine looks clear MUSCULOSKELETAL: Extremities without clubbing, cyanosis, or edema. No calf tenderness. NEUROLOGICAL: Interactive. Moving extremities. No babinski or ankle clonus LINE: PIV with no evidence of infection Assessment & Plan Remarks IMPRESSION Sepsis on presentation - has UTI - PNA Hematuria, resolved NSTEMI Multiple Abx allergy - has tolerated carbapenems in the past RECOMMENDATION Continue Azactam for GNR coverage Continue Doxycyline for atypical coverage Ct chest to further evaluate opacities Monitor temps Monitor progress D/W Consuelo Zavala MD Aug 27, 2016 15:36
[2016-08-27] MEDS ORDERED: IOHEXOL 350 MG/ML 10 ML VIAL (for RAD DIAG) IV ONE (17:44)
--- NOTE | 2016-08-27 17:51 | RADRPT ---
EXAM DATE/TIME: 08/27/2016 17:08 [place] COMPARISON: No previous studies available for comparison. INDICATIONS : Evaluate for pneumona. IV CONTRAST: 65 cc Omnipaque 350 (iohexol) IV RADIATION DOSE: 5.34 CTDIvol (mGy) MEDICAL HISTORY : Cerebrovascular disease. Parkinsons. Hypertension. SURGICAL HISTORY : Inguinal hernia repair. Cholecystectomy. ENCOUNTER: Initial ACUITY: 1 day PAIN SCALE: 0/10 LOCATION: chest TECHNIQUE: Volumetric scanning of the chest was performed. Using automated exposure control and adjustment of t he mA and/or kV according to patient size, radiation dose was kept as low as reasonably achievable to obtain optimal diagnostic quality images. FINDINGS: Large bilateral pleural effusions are identified. There is subsegmental atelectasis in the both base s. No pulmonary nodules are identified. Examination of the mediastinum demonstrates no abnormally enlarged lymph nodes by CT criteria. No axi llary or hilar abnormalities are identified. Coronary artery calcifications are present. The visualiz ed upper abdomen demonstrates no abnormality. CONCLUSION: 1. Large bilateral effusions. 2. Bibasilar atelectasis. Darryl Killian MD on August 27, 2016 at 17:47 Board Certified Radiologist. This report was verified electronically.
[2016-08-27] MEDS: ATORVASTATIN 10 MG TAB PO SCH (20:26)
[2016-08-28] VITALS (7 sets, daily range): BP systolic 105–140; BP diastolic 68–86; PULSE 85–97; RESP 17–20; TEMP 96.6–98.1; O2SAT 94–97
[2016-08-28] MEDS: AZTREONAM INJ 2,000 MG in SODIUM CHLORIDE 0.9% INJ 100 ML IV SCH (06:44)
[2016-08-28] MEDS: CARBIDOPA/LEVODOPA 25 MG/100 MG TAB PO SCH ×3 (06:44→21:26)
[2016-08-28] MEDS: POTASSIUM CHLORIDE INJ 10 MEQ in DEXT 5%-NACL 0.9% 1000 ML INJ 1,000 ML IV SCH ×2 (06:46→15:31)
[2016-08-28 08:04] LABS: AUTOMATED NEUTROPHIL # 11.7 TH/MM3 (1.8-7.7); BASOPHIL # 0.1 TH/MM3 (0-0.2); BASOPHIL % 0.4 % (0.0-2.0); EOSINOPHIL # 0.7 TH/MM3 (0-0.4); EOSINOPHIL % 4.7 % (0.0-4.0); HEMATOCRIT 33.1 % (39.0-51.0); HEMO FLAGS DIFF FINAL; LYMPH % 7.4 % (9.0-44.0); LYMPHOCYTE # 1.1 TH/MM3 (1.0-4.8); MEAN CELL VOLUME 89.9 FL (80.0-100.0); MEAN CORPUSCULAR HEMOGLOBIN 29.9 PG (27.0-34.0); MEAN CORPUSCULAR HGB CONC 33.3 % (32.0-36.0); MONO % 7.5 % (0.0-8.0); PLATELET COUNT 290 TH/MM3 (150-450); RED BLOOD COUNT 3.68 MIL/MM3 (4.50-5.90); RED CELL DISTRIBUTION WIDTH 16.4 % (11.6-17.2); WHITE BLOOD COUNT 14.6 TH/MM3 (4.0-11.0)
[2016-08-28 08:35] LABS: BICARBONATE 20.6 MEQ/L (21.0-32.0); POTASSIUM 3.6 MEQ/L (3.5-5.1)
[2016-08-28] MEDS: DOCUSATE SODIUM 100 MG CAP PO SCH ×2 (09:45→21:00)
[2016-08-28] MEDS: METOPROLOL TARTRATE 25 MG TAB PO SCH ×2 (09:45→21:00)
[2016-08-28] MEDS: DOXYCYCLINE HYCLATE 100 MG CAP PO SCH (09:45)
[2016-08-28] MEDS: PANTOPRAZOLE SOD 40 MG DELAYED RELEASE TAB PO SCH ×2 (09:45→21:26)
[2016-08-28] MEDS: SODIUM CHLORIDE 0.9% FLUSH 5 ML FLUSH FLUSH SCH ×2 (09:46→21:26)
--- NOTE | 2016-08-28 13:02 | HHI.FPPN ---
Subjective Remarks PT VERY ALERT TODAY. [facility] AT BEDSIDE. PT REQUESTS PALLIATION AND REPORTS HE IS TIRED AND WANTS TO PASS. [facility] AND [facility] AGREE WITH DNR AFTER EXPLAINING TO THEM AND TO [facility]. Objective Vitals Vital Signs Date Time Temp Pulse Resp B/P Pulse Ox O2 Delivery O2 Flow Rate FiO2 08/28/16 12:45 97.2 88 18 140/72 97 08/28/16 08:00 96.6 94 20 131/86 96 08/28/16 04:00 97.8 90 17 105/70 95 08/28/16 00:00 98.1 85 17 111/78 94 08/27/16 20:26 100 08/27/16 20:00 98.3 100 18 146/88 94 08/27/16 15:26 98.0 88 17 150/83 96 I/O 08/27/16 08/27/16 08/27/16 08/28/16 08/28/16 08/28/16 07:00 15:00 23:00 07:00 15:00 23:00 Intake Total 600 ml 120 ml 240 ml Output Total 700 ml 450 ml 350 ml 600 ml 700 ml Balance -100 ml -330 ml -350 ml -600 ml -460 ml Intake Oral 120 ml 240 ml IV Total 600 ml Output Urine Total 700 ml 450 ml 350 ml 600 ml 700 ml # Bowel Movements 1 1 1 Result Diagram: 08/28/16 0630 08/28/16 0630 Imaging Last [address] 08/27/16 0000 Signed Impressions: Service Date/Time: Saturday, August 27, 2016 17:08 - CONCLUSION: 1. Large bilateral effusions. 2. Bibasilar atelectasis. Darryl Killian MD Radius/Ulna X-Ray 08/26/16 0000 Signed Impressions: Service Date/Time: Friday, August 26, 2016 20:04 - CONCLUSION: 1. No acute abnormality demonstrated of the right radius or ulna. 2. Nonspecific soft tissue swelling of the forearm, especially proximally. No radiopaque foreign body seen. 3. 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 Freddie Heredia MD Humerus X-Ray 08/26/16 0000 Signed Impressions: Service Date/Time: Friday, August 26, 2016 20:00 - CONCLUSION: 1. No abnormality seen in the right humerus. 2. Apparent soft tissue swelling distally. No radiopaque foreign body seen. 3. Suspected calcific tendinitis/bursitis of the right rotator cuff. Freddie Heredia MD Objective Remarks GENERAL: SKIN: Warm and dry. HEAD: Atraumatic. Normocephalic. EYES: Pupils equal and round. No scleral icterus. No injection or drainage. ENT: No nasal bleeding or discharge. Mucous membranes pink and moist. NECK: Trachea midline. No JVD. CARDIOVASCULAR: Regular rate and rhythm. RESPIRATORY: V HARSH COUGH, B R/R TO APICES, GASTROINTESTINAL: Abdomen soft, non-tender, nondistended. Hepatic and splenic margins not palpable. MUSCULOSKELETAL: Extremities without clubbing, cyanosis, or edema. No obvious deformities. NEUROLOGICAL: AO X 3. No obvious cranial nerve deficits. Motor grossly within normal limits. 1 out of 5 muscle strength in the arms and legs. Normal speech. PSYCHIATRIC: Appropriate mood and affect; insight and judgment normal. Medications and IVs Current Medications Medications (Trade) Dose Ordered Sig/Nai Route Start Time Stop Time Status Last Admin (Tylenol) 325 mg Q6H PRN PO 08/19/16 17:30 (Lipitor) 10 mg HS PO 08/19/16 21:00 08/27/16 20:26 (Sinemet 25-100 Mg) 1 tab Q8HR PO 08/19/16 22:00 08/28/16 06:44 (Plavix) 75 mg DAILY PO 08/20/16 09:00 Hold 08/20/16 08:20 (Colace) 100 mg BID PO 08/19/16 21:00 08/28/16 09:45 (Protonix) 40 mg BID PO 08/19/16 21:00 08/28/16 09:45 (Robitussin Dm 200-20 Mg/10 ml Liq) 10 ml Q4H PRN PO 08/19/16 18:00 08/22/16 21:24 (NS Flush) 2 ml UNSCH PRN FLUSH 08/19/16 17:30 (NS Flush) 2 ml BID FLUSH 08/19/16 21:00 08/28/16 09:46 (Tylenol) 650 mg Q4H PRN PO 08/19/16 17:30 08/24/16 21:44 (Zofran Inj) 4 mg Q6H PRN IVP 08/19/16 17:30 (Dulcolax Supp) 10 mg DAILY PRN [place] 08/19/16 17:30 (Milk Of Magnesia Liq) 30 ml Q12H PRN PO 08/19/16 17:30 (Ambien) 5 mg HS PRN PO 08/19/16 17:30 08/22/16 01:11 (Heparin Inj) 5,000 units Q12H SQ 08/19/16 18:00 Hold 08/20/16 17:46 (Narcan Inj) 0.4 mg UNSCH PRN IV 08/19/16 17:30 ([place] 5-325 Mg) 1 tab Q4H PRN PO 08/19/16 17:45 08/26/16 14:15 (Catapres) 0.1 mg Q6H PRN PO 08/19/16 17:45 Enalaprilat 2.5 mg 2.5 mg Q6H PRN IV PUSH 08/19/16 17:45 (Azactam Inj/NS Inj) 100 ml @ 200 mls/hr Q12H IV 08/22/16 17:30 08/28/16 06:44 Metoprolol Tartrate 12.5 mg 12.5 mg Q12HR PO 08/23/16 21:00 08/28/16 09:45 (KCl Inj/D5W-NS 1000 ml Inj) 1,005 ml @ 75 mls/hr [id number] IV 08/23/16 20:00 08/27/16 23:48 (Vibramycin) 100 mg BID PO 08/25/16 21:00 08/28/16 09:45 Urinary Catheter: Yes Assessment to: Continue Date of Insertion: Aug 19, 2016 A/P Assessment and Plan Sepsis Pneumonia- +infiltrate left lobe. + aspiration. Continued leukocytosis CHRONIC MALIK New UTI- gram negative rods on UA Azactam from Gram negative coverage Zyvox for MRSA Doxycycline for atypical coverage ff cultures ID service ff seen by speech therapist- diet thickened pureed. Acute kidney injury- creatinine better- appears dry, poor po urine concentrated- malik in place continue IVFs ff BMP Encephalopathy- resolved, from Sepsis also can be underlying dementia speech consult for cognitive evaluation CHF EDEMA- D/T IVF'S, NEG XR'S. LOWER IVF'S. START LASIX. 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 no plan for intervention per Cardiology Parkinson's disease FTT and Deconditioning PT/OT consult. Out of bed to chair daily. Palliative consult. Hospice consult. Sacral erythema- turn patient q 2 hours wound care team consult Dietary consult - nutrition recommendations doubt if oral intake will need nutritional requirement maybe a PEG candidate PPI for GI prophylaxis Mechanical prophylaxis- TEDs/SCDs. no chemical prophylaxis- patient had gross hematuria Fer Ace MD Aug 28, 2016 13:02
--- NOTE | 2016-08-28 14:21 | HHI.IDPN ---
Subjective Subjective Remarks Notes reviewed No fever Has good sats CT chest with large effusions and compressive atelectasis Hospice has been consulted Patient with DNR status now Antibiotics Azactam Zyvox Doxycyline Past Medical History Osteoarthritis Gout CVA Hypertension Gastroesophageal reflux disease Parkinson's Vertebral fracture Past Surgical History Right inguinal hernia repair Tonsillectomy Cataract surgery Allergies: Coded Allergies: Cipro (Verified Allergy, Mild, RASH, 08/19/16) E-Mycin (Verified Allergy, Mild, DIARRHEA, 08/19/16) Keflex (Verified Allergy, Mild, UNKNOWN, 08/19/16) causes rash Objective . Vital Signs Date Time Temp Pulse Resp B/P Pulse Ox O2 Delivery O2 Flow Rate FiO2 08/28/16 12:45 97.2 88 18 140/72 97 08/28/16 08:00 96.6 94 20 131/86 96 08/28/16 04:00 97.8 90 17 105/70 95 08/28/16 00:00 98.1 85 17 111/78 94 08/27/16 20:26 100 08/27/16 20:00 98.3 100 18 146/88 94 08/27/16 15:26 98.0 88 17 150/83 96 08/27/16 08/27/16 08/28/16 15:00 23:00 07:00 Intake Total 120 ml Output Total 450 ml 350 ml 600 ml Balance -330 ml -350 ml -600 ml Intake Oral 120 ml Output Urine Total 450 ml 350 ml 600 ml # Bowel Movements 1 . Laboratory Tests Test 08/27/16 08/28/16 06:30 06:30 White Blood Count 15.3 TH/MM3 14.6 TH/MM3 Red Blood Count 3.77 MIL/MM3 3.68 MIL/MM3 Hemoglobin 11.3 GM/DL 11.0 GM/DL Hematocrit 34.8 % 33.1 % Mean Corpuscular Volume 92.2 FL 89.9 FL Mean Corpuscular Hemoglobin 30.0 PG 29.9 PG Mean Corpuscular Hemoglobin 32.5 % 33.3 % Concent Red Cell Distribution Width 16.5 % 16.4 % Platelet Count 270 TH/MM3 290 TH/MM3 Mean Platelet Volume 8.7 FL 8.2 FL Neutrophils (%) (Auto) 79.9 % 80.0 % Lymphocytes (%) (Auto) 7.1 % 7.4 % Monocytes (%) (Auto) 6.4 % 7.5 % Eosinophils (%) (Auto) 4.2 % 4.7 % Basophils (%) (Auto) 2.4 % 0.4 % Neutrophils # (Auto) 12.2 TH/MM3 11.7 TH/MM3 Lymphocytes # (Auto) 1.1 TH/MM3 1.1 TH/MM3 Monocytes # (Auto) 1.0 TH/MM3 1.1 TH/MM3 Eosinophils # (Auto) 0.6 TH/MM3 0.7 TH/MM3 Basophils # (Auto) 0.4 TH/MM3 0.1 TH/MM3 CBC Comment DIFF FINAL DIFF FINAL Differential Comment Laboratory Tests Test 08/27/16 08/28/16 06:30 06:30 Sodium Level 141 MEQ/L 142 MEQ/L Potassium Level 3.8 MEQ/L 3.6 MEQ/L Chloride Level 111 MEQ/L 111 MEQ/L Carbon Dioxide Level 19.5 MEQ/L 20.6 MEQ/L Anion Gap 11 MEQ/L 10 MEQ/L Blood Urea Nitrogen 15 MG/DL 12 MG/DL Creatinine 0.96 MG/DL 0.93 MG/DL Estimat Glomerular Filtration 75 ML/MIN 78 ML/MIN Rate Random Glucose 107 MG/DL 85 MG/DL Calcium Level 8.3 MG/DL 8.4 MG/DL B-Type Natriuretic Peptide 322 PG/ML Imaging Chest CT 08/27/16 0000 Signed Impressions: Service Date/Time: Saturday, August 27, 2016 17:08 - CONCLUSION: 1. Large bilateral effusions. 2. Bibasilar atelectasis. Darryl Killian MD Radius/Ulna X-Ray 08/26/16 0000 Signed Impressions: Service Date/Time: Friday, August 26, 2016 20:04 - CONCLUSION: 1. No acute abnormality demonstrated of the right radius or ulna. 2. Nonspecific soft tissue swelling of the forearm, especially proximally. No radiopaque foreign body seen. 3. 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 Freddie Heredia MD Humerus X-Ray 08/26/16 0000 Signed Impressions: Service Date/Time: Friday, August 26, 2016 20:00 - CONCLUSION: 1. No abnormality seen in the right humerus. 2. Apparent soft tissue swelling distally. No radiopaque foreign body seen. 3. Suspected calcific tendinitis/bursitis of the right rotator cuff. Freddie Heredia MD Chest X-Ray 08/25/16 0000 Signed Impressions: Service Date/Time: Thursday, August 25, 2016 10:39 - CONCLUSION: Increased bibasilar opacities since the prior study. These likely represent small pleural effusions with associated volume loss and/or airspace consolidation. Freddie Grey MD Chest X-Ray 08/22/16 0000 Signed Impressions: Service Date/Time: Monday, August 22, 2016 10:37 - CONCLUSION: New parenchymal opacity left lung. Abe Kirby MD FACR Renal Ultrasound 08/21/16 0000 Signed Impressions: Service Date/Time: August 12:52 - CONCLUSION: Normal examination except for debris within the bladder and a thickened wall with a Nolen catheter of uncertain significance. Bjorn Palma MD Physical Exam GENERAL: very weak, NAD SKIN: Warm and dry. No generalized rash EYES: [place] conjunctivae. No scleral icterus, no injection. ENT: No nasal discharge. Moist mucosa NECK: Supple, nontender, no meningeal signs. CARDIOVASCULAR: Regular rate and rhythm without murmurs, gallops, or rubs. RESPIRATORY: Clear to auscultation. No wheezes, rales, or rhonchi. Decreased breath sounds at the bases. GASTROINTESTINAL: Abdomen soft, non-tender, nondistended. No guarding. GENITOURINARY: Nolen catheter in place, urine looks clear MUSCULOSKELETAL: Extremities without clubbing, cyanosis, or edema. No calf tenderness. NEUROLOGICAL: Interactive. Weak LINE: PIV with no evidence of infection Assessment & Plan Remarks IMPRESSION Sepsis on presentation - has UTI - PNA CHF Hematuria, resolved NSTEMI Multiple Abx allergy - has tolerated carbapenems in the past RECOMMENDATION Now DNR status Hospice has been consulted Change to po Abx and give 5 more days to complete Rx I will sign off Consuelo Nation MD Aug 28, 2016 14:21
[2016-08-28] MEDS: FUROSEMIDE 40 MG/4 ML VIAL IV PUSH SCH (15:31)
--- NOTE | 2016-08-28 17:31 | HHI.HCPN ---
Reason for visit a. To assist with evaluation and management of symptoms including: Altered mental status, weakness. b. To assist medical decision maker(s) with: better understanding of current medical conditions; weighing benefits/burdens of medical treatment options; making medical treatment decisions. . Subjective/Interval History Patient seen and assessed in room 710. Also present patient's daughter (Emily) and friend (Haydee). Upon exam, patient is lethargic. He answers simple questions, follows some commands. Per family, Dr. Ace had recently been into to see the patient and they felt that was contributing to his flat affect. Hospice consult was ordered. Patient is afebrile. Persistent leukocytosis. WBC 14.6 today 08/28/16, trending downward from 15.3. Follow-up chest x-ray on 08/27/16 showing large bilateral effusions and bibasilar atelectasis. Patient remains on the fact him, Zyvox and doxycycline. Infectious disease is following. I attempted to discuss designation of HCS explaining that per [place] statutes, in the absence of written advanced directives healthcare proxy decision making would fall to the majority of the patient's adult children. The patient did not respond to the question further. The patient's daughter had a copy of the patient's will/legal power of real estate attorney only. His friend, Haydee, thinks the patient may have completed a living will and/or designation of health care surrogate. She will attempt to locate these documents and bring them to the hospital tomorrow. Advance Directives Advance Directive Specifics Significant change in goals: Hospice consult pending. CODE STATUS change to NO CODEDNR. . Objective Vital Signs Date Time Temp Pulse Resp B/P Pulse Ox O2 Delivery O2 Flow Rate FiO2 08/28/16 12:45 97.2 88 18 140/72 97 08/28/16 08:00 96.6 94 20 131/86 96 08/28/16 04:00 97.8 90 17 105/70 95 08/28/16 00:00 98.1 85 17 111/78 94 08/27/16 20:26 100 08/27/16 20:00 98.3 100 18 146/88 94 Intake & Output 08/28/16 08/28/16 07:00 19:00 Intake Total 840 ml Output Total 950 ml 700 ml Balance -950 ml 140 ml Intake Oral 840 ml Output Urine Total 950 ml 700 ml # Bowel Movements 2 . Physical Exam CONSTITUTIONAL/GENERAL: This is a frail appearing, elderly male patient in no apparent distress. TUBES/LINES/DRAINS: PIV, Nolen SKIN: No jaundice, rashes, or lesions. Skin temperature appropriate. Not diaphoretic. Scars on upper extremities bilaterally HEAD: Atraumatic. Normocephalic. EYES: Pupils equal and round and reactive. No scleral icterus. No injection or drainage. Fundi not examined. ENT: Hearing grossly normal. Nose without bleeding or purulent drainage. . NECK: Trachea midline. CARDIOVASCULAR: Regular rate and rhythm without murmurs, gallops, or rubs. No JVD. Peripheral pulses symmetric. RESPIRATORY/CHEST: Respirations symmetric, unlabored. Persistent cough, diminished air exchange GASTROINTESTINAL: Abdomen soft, non-tender, nondistended. No hepato-splenomegaly , or palpable masses. No guarding. Bowel sounds present. GENITOURINARY: Without palpable bladder distension. Nolen catheter in place. MUSCULOSKELETAL: Extremities without clubbing, cyanosis, or edema. LYMPHATICS: No palpable cervical or supraclavicular adenopathy. NEUROLOGICAL: Oriented to person and place, lethargic. Answers simple questions , follows some commands. PSYCHIATRIC: Flat affect . Diagnostic Tests Laboratory Laboratory Tests Test 08/26/16 08/26/16 08/27/16 08/28/16 05:40 06:15 06:30 06:30 Sodium Level 142 MEQ/L 141 MEQ/L 142 MEQ/L (136-145) (136-145) (136-145) Potassium Level 4.3 MEQ/L 3.8 MEQ/L 3.6 MEQ/L (3.5-5.1) (3.5-5.1) (3.5-5.1) Chloride Level 112 MEQ/L 111 MEQ/L 111 MEQ/L (98-107) (98-107) (98-107) Carbon Dioxide Level 17.1 MEQ/L 19.5 MEQ/L 20.6 MEQ/L (21.0-32.0) (21.0-32.0) (21.0-32.0) Anion Gap 13 MEQ/L (5-15) 11 MEQ/L (5-15) 10 MEQ/L (5-15) Blood Urea Nitrogen 14 MG/DL (7-18) 15 MG/DL (7-18) 12 MG/DL (7-18) Creatinine 0.88 MG/DL 0.96 MG/DL 0.93 MG/DL (0.60-1.30) (0.60-1.30) (0.60-1.30) Estimat Glomerular Filtration 83 ML/MIN (>89) 75 ML/MIN (>89) 78 ML/MIN (>89) Rate Random Glucose 97 MG/DL 107 MG/DL 85 MG/DL (74-106) (74-106) (74-106) Calcium Level 8.2 MG/DL 8.3 MG/DL 8.4 MG/DL (8.5-10.1) (8.5-10.1) (8.5-10.1) White Blood Count 14.4 TH/MM3 15.3 TH/MM3 14.6 TH/MM3 (4.0-11.0) (4.0-11.0) (4.0-11.0) Red Blood Count 3.67 MIL/MM3 3.77 MIL/MM3 3.68 MIL/MM3 (4.50-5.90) (4.50-5.90) (4.50-5.90) Hemoglobin 11.0 GM/DL 11.3 GM/DL 11.0 GM/DL (13.0-17.0) (13.0-17.0) (13.0-17.0) Hematocrit 33.3 % 34.8 % 33.1 % (39.0-51.0) (39.0-51.0) (39.0-51.0) Mean Corpuscular Volume 90.7 FL 92.2 FL 89.9 FL (80.0-100.0) (80.0-100.0) (80.0-100.0) Mean Corpuscular Hemoglobin 29.9 PG 30.0 PG 29.9 PG (27.0-34.0) (27.0-34.0) (27.0-34.0) Mean Corpuscular Hemoglobin 32.9 % 32.5 % 33.3 % Concent (32.0-36.0) (32.0-36.0) (32.0-36.0) Red Cell Distribution Width 16.5 % 16.5 % 16.4 % (11.6-17.2) (11.6-17.2) (11.6-17.2) Platelet Count 256 TH/MM3 270 TH/MM3 290 TH/MM3 (150-450) (150-450) (150-450) Mean Platelet Volume 8.7 FL 8.7 FL 8.2 FL (7.0-11.0) (7.0-11.0) (7.0-11.0) Neutrophils (%) (Auto) 83.6 % 79.9 % 80.0 % (16.0-70.0) (16.0-70.0) (16.0-70.0) Lymphocytes (%) (Auto) 5.8 % 7.1 % 7.4 % (9.0-44.0) (9.0-44.0) (9.0-44.0) Monocytes (%) (Auto) 5.1 % (0.0-8.0) 6.4 % (0.0-8.0) 7.5 % (0.0-8.0) Eosinophils (%) (Auto) 5.0 % (0.0-4.0) 4.2 % (0.0-4.0) 4.7 % (0.0-4.0) Basophils (%) (Auto) 0.5 % (0.0-2.0) 2.4 % (0.0-2.0) 0.4 % (0.0-2.0) Neutrophils # (Auto) 12.0 TH/MM3 12.2 TH/MM3 11.7 TH/MM3 (1.8-7.7) (1.8-7.7) (1.8-7.7) Lymphocytes # (Auto) 0.8 TH/MM3 1.1 TH/MM3 1.1 TH/MM3 (1.0-4.8) (1.0-4.8) (1.0-4.8) Monocytes # (Auto) 0.7 TH/MM3 1.0 TH/MM3 1.1 TH/MM3 (0-0.9) (0-0.9) (0-0.9) Eosinophils # (Auto) 0.7 TH/MM3 0.6 TH/MM3 0.7 TH/MM3 (0-0.4) (0-0.4) (0-0.4) Basophils # (Auto) 0.1 TH/MM3 0.4 TH/MM3 0.1 TH/MM3 (0-0.2) (0-0.2) (0-0.2) CBC Comment DIFF FINAL DIFF FINAL DIFF FINAL Differential Comment B-Type Natriuretic Peptide 322 PG/ML (0-100) . Result Diagram: 08/28/16 0630 08/28/16 0630 Microbiology Microbiology Date/Time Procedure Status Source Growth 08/24/16 02:20 Gram Stain - Final Complete Wound Other 08/24/16 02:20 Wound Culture - Final Complete Wound Other . Imaging Last [address] 08/27/16 0000 Signed Impressions: Service Date/Time: Saturday, August 27, 2016 17:08 - CONCLUSION: 1. Large bilateral effusions. 2. Bibasilar atelectasis. Darryl Killian MD Radius/Ulna X-Ray 08/26/16 0000 Signed Impressions: Service Date/Time: Friday, August 26, 2016 20:04 - CONCLUSION: 1. No acute abnormality demonstrated of the right radius or ulna. 2. Nonspecific soft tissue swelling of the forearm, especially proximally. No radiopaque foreign body seen. 3. 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 Freddie Heredia MD Humerus X-Ray 08/26/16 0000 Signed Impressions: Service Date/Time: Friday, August 26, 2016 20:00 - CONCLUSION: 1. No abnormality seen in the right humerus. 2. Apparent soft tissue swelling distally. No radiopaque foreign body seen. 3. Suspected calcific tendinitis/bursitis of the right rotator cuff. Freddie Heredia MD . Assessment and Plan Disease Oriented Problem List: (1) Cough (2) NSTEMI (non-ST elevated myocardial infarction) (3) Hypokalemia (4) Encephalopathy (5) UTI (urinary tract infection) (6) HTN (hypertension) (7) CHAY (acute kidney injury) (8) PNA (pneumonia) Symptom Scale: (1) Weakness (2) Altered mental status Pertinent Non-Medical Issues Psychosocial: Patient was born and raised in [place]. He is currently single but was 4 times per his daughter, Emily. Patient has 5 adult children (Lo, Ace, Mariza, Manjit and Emily). 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 He moved to [place] after inheriting a house locally. 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 Spiritual: Zoroastrian isidro Legal: Per [place] statutes, and absence of written advanced directives healthcare proxy decision-making falls to the majority of the patient's adult children. Ethical issues impacting care: No known ethical issues impacting care at this time. . Important Contacts Emily Torres, daughter: [phone] (CELL); [phone] (HOME); [phone] (WORK) Haydee Akanksha, friend: [phone] . Prognosis Patient is a 81 year old male patient who has experienced an acute decline over the past 12 months. Patient was independent and active, now requiring assist most ADLs. 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 He is currently hospitalized for medical management of NSTEMI, UTI, bacteremia and pneumonia. Patient is encephalopathic with aggressively worsening weakness. His nutritional intake remains poor. Given this patient's advanced age and overall decline in functional status over a 12 month, it is unlikely the patient will tolerate therapy and his overall prognosis is poor. . Code Status: Full Code Plan * NO CODE * Decision-making: Patient is not capacitated at this time to designate a health care surrogate. It is not clear if the patient will regain capacity. Per [place] statutes in the absence of written advanced directives healthcare proxy decision making falls to the majority of the patient's adult children. Patient indicated he did not want his daughter, Emily, to be his health care decision maker by mouthing the word "NO' when I asked if he wanted her to be the HCS. Patient's friend, Haydee, stated today 08/28/16 that she believed the patient had completed a living well and designation of health care surrogate. She will attempt to locate the documentations this evening and bring copies to the hospital tomorrow. * Goals: Hospice consult pending. * Palliative care contact information provided to patient's daughter, Emily. * Palliative care will continue to follow this patient throughout his hospitalization to establish trust, assist with symptom management and clarification of medical treatment goals. . Attestation To help prompt me to consider important information that might be impacting today's encounter and assessment, information from prior notes written by myself or my colleagues may have been "brought forward" into today's note. My signature on this note, however, is an attestation that I personally performed the exam, history, and/or decision-making noted today, and, unless otherwise indicated, the interactions with patient, family, and staff as well as the review of records all occurred today. I also attest that the listed assessment and stated plan reflect my best clinical judgment today based on the combination of historical information, prior notes, and today's exam/ interactions. When time spent is documented, it refers only to time spent today by the signer, or if indicated, combined time spent today by collaborating physician/nurse practitioner. . Gemini Boggs Aug 28, 2016 17:31
[2016-08-28] MEDS: ATORVASTATIN 10 MG TAB PO SCH (21:26)
[2016-08-28] MEDS: SULFAMETHOXAZOLE-TRIMETHOPRIM 400-80 MG TAB PO SCH (21:27)
[2016-08-29] VITALS (7 sets, daily range): BP systolic 78–160; BP diastolic 55–88; PULSE 66–100; RESP 17–22; TEMP 96.8–98.9; O2SAT 94–95
[2016-08-29] MEDS: CARBIDOPA/LEVODOPA 25 MG/100 MG TAB PO SCH ×3 (05:30→20:50)
[2016-08-29] MEDS: FUROSEMIDE 40 MG/4 ML VIAL IV PUSH SCH ×2 (09:00→09:57)
[2016-08-29 09:25] LABS: AUTOMATED NEUTROPHIL # 11.5 TH/MM3 (1.8-7.7); BASOPHIL # 0.1 TH/MM3 (0-0.2); BASOPHIL % 0.6 % (0.0-2.0); EOSINOPHIL # 0.7 TH/MM3 (0-0.4); EOSINOPHIL % 4.7 % (0.0-4.0); HEMATOCRIT 34.8 % (39.0-51.0); HEMO FLAGS DIFF FINAL; LYMPH % 5.8 % (9.0-44.0); LYMPHOCYTE # 0.8 TH/MM3 (1.0-4.8); MEAN CELL VOLUME 90.1 FL (80.0-100.0); MEAN CORPUSCULAR HEMOGLOBIN 29.9 PG (27.0-34.0); MEAN CORPUSCULAR HGB CONC 33.2 % (32.0-36.0); MONO % 7.9 % (0.0-8.0); PLATELET COUNT 319 TH/MM3 (150-450); RED BLOOD COUNT 3.86 MIL/MM3 (4.50-5.90); RED CELL DISTRIBUTION WIDTH 16.3 % (11.6-17.2); WHITE BLOOD COUNT 14.2 TH/MM3 (4.0-11.0)
[2016-08-29 09:51] LABS: BICARBONATE 23.6 MEQ/L (21.0-32.0); POTASSIUM 3.2 MEQ/L (3.5-5.1)
[2016-08-29] MEDS: METOPROLOL TARTRATE 25 MG TAB PO SCH ×2 (09:57→20:50)
[2016-08-29] MEDS: DOCUSATE SODIUM 100 MG CAP PO SCH ×2 (09:57→20:50)
[2016-08-29] MEDS: PANTOPRAZOLE SOD 40 MG DELAYED RELEASE TAB PO SCH ×2 (09:57→20:50)
[2016-08-29] MEDS: SULFAMETHOXAZOLE-TRIMETHOPRIM 400-80 MG TAB PO SCH ×2 (09:57→20:51)
[2016-08-29] MEDS: SODIUM CHLORIDE 0.9% FLUSH 5 ML FLUSH FLUSH SCH ×2 (09:58→20:51)
--- NOTE | 2016-08-29 11:01 | HHI.FPPN ---
Subjective Remarks MORE ALERT TODAY STILL HARSH COUGH ID SIGNED OFF D/W DGTR AT BEDSIDE Objective Vitals Vital Signs Date Time Temp Pulse Resp B/P Pulse Ox O2 Delivery O2 Flow Rate FiO2 08/29/16 07:59 97.1 92 22 160/88 95 08/29/16 04:00 97.1 89 17 78/ 94 08/29/16 00:00 98.6 97 18 148/73 95 08/28/16 20:00 93 08/28/16 20:00 97.0 89 17 132/82 96 08/28/16 16:15 97.6 96 20 138/68 95 08/28/16 12:45 97.2 88 18 140/72 97 I/O 08/28/16 08/28/16 08/28/16 08/29/16 08/29/16 08/29/16 07:00 15:00 23:00 07:00 15:00 23:00 Intake Total 1365 ml 120 ml 120 ml Output Total 600 ml 700 ml 1500 ml 1000 ml Balance -600 ml 665 ml -1380 ml -1000 ml 120 ml Intake Oral 840 ml 120 ml 120 ml IV Total 525 ml Output Urine Total 600 ml 700 ml 1500 ml 1000 ml # Voids 1 # Bowel Movements 2 1 0 Result Diagram: 08/29/16 0811 08/29/1611 Objective Remarks GENERAL: SKIN: Warm and dry. HEAD: Atraumatic. Normocephalic. EYES: Pupils equal and round. No scleral icterus. No injection or drainage. ENT: No nasal bleeding or discharge. Mucous membranes pink and moist. NECK: Trachea midline. No JVD. CARDIOVASCULAR: Regular rate and rhythm. RESPIRATORY: improved BS's, slight ronchi bibasilar, GASTROINTESTINAL: Abdomen soft, non-tender, nondistended. Hepatic and splenic margins not palpable. MUSCULOSKELETAL: Extremities without clubbing, cyanosis, or edema. No obvious deformities. NEUROLOGICAL: AO X 3. No obvious cranial nerve deficits. Motor grossly within normal limits. 1 out of 5 muscle strength in the arms and legs. Normal speech. PSYCHIATRIC: Appropriate mood and affect; insight and judgment normal. Medications and IVs Current Medications Medications (Trade) Dose Ordered Sig/Nai Route Start Time Stop Time Status Last Admin (Tylenol) 325 mg Q6H PRN PO 08/19/16 17:30 (Lipitor) 10 mg HS PO 08/19/16 21:00 08/28/16 21:26 (Sinemet 25-100 Mg) 1 tab Q8HR PO 08/19/16 22:00 08/29/16 05:30 (Plavix) 75 mg DAILY PO 08/20/16 09:00 Hold 08/20/16 08:20 (Colace) 100 mg BID PO 08/19/16 21:00 08/29/16 09:57 (Protonix) 40 mg BID PO 08/19/16 21:00 08/29/16 09:57 (Robitussin Dm 200-20 Mg/10 ml Liq) 10 ml Q4H PRN PO 08/19/16 18:00 08/22/16 21:24 (NS Flush) 2 ml UNSCH PRN FLUSH 08/19/16 17:30 (NS Flush) 2 ml BID FLUSH 08/19/16 21:00 08/29/16 09:58 (Tylenol) 650 mg Q4H PRN PO 08/19/16 17:30 08/24/16 21:44 (Zofran Inj) 4 mg Q6H PRN IVP 08/19/16 17:30 (Dulcolax Supp) 10 mg DAILY PRN NC 08/19/16 17:30 (Milk Of Magnesia Liq) 30 ml Q12H PRN PO 08/19/16 17:30 (Ambien) 5 mg HS PRN PO 08/19/16 17:30 08/22/16 01:11 (Heparin Inj) 5,000 units Q12H SQ 08/19/16 18:00 Hold 08/20/16 17:46 (Narcan Inj) 0.4 mg UNSCH PRN IV 08/19/16 17:30 (Ardmore 5-325 Mg) 1 tab Q4H PRN PO 08/19/16 17:45 08/26/16 14:15 (Catapres) 0.1 mg Q6H PRN PO 08/19/16 17:45 (Vasotec Inj) 2.5 mg Q6H PRN IV PUSH 08/19/16 17:45 Metoprolol Tartrate 12.5 mg 12.5 mg Q12HR PO 08/23/16 21:00 08/29/16 09:57 (KCl Inj/D5W-NS 1000 ml Inj) 1,005 ml @ 5 mls/hr Q24H IV 08/23/16 20:00 08/28/16 15:31 (Lasix Inj) 40 mg DAILY IV PUSH 08/28/16 13:15 08/28/16 15:31 (Bactrim 400-80 Mg) 1 tab Q12HR PO 08/28/16 21:00 09/02/16 20:59 08/29/16 09:57 Date of Insertion: Aug 19, 2016 A/P Assessment and Plan Sepsis Pneumonia- +infiltrate left lobe. + aspiration. Continued leukocytosis CHRONIC ANDREA New UTI- gram negative rods on UA Azactam from Gram negative coverage Zyvox for MRSA Doxycycline for atypical coverage ff cultures ID service ff seen by speech therapist- diet thickened pureed. Acute kidney injury- creatinine better- appears dry, poor po urine concentrated- andrea in place continue IVFs ff BMP Encephalopathy- resolved, from Sepsis also can be underlying dementia speech consult for cognitive evaluation CHF EDEMA- D/T IVF'S, NEG XR'S. LOWER IVF'S. START LASIX. 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 no plan for intervention per Cardiology Parkinson's disease FTT and Deconditioning PT/OT consult. Out of bed to chair daily. Palliative consult. Hospice consult. Sacral erythema- turn patient q 2 hours wound care team consult Dietary consult - nutrition recommendations doubt if oral intake will need nutritional requirement maybe a PEG candidate PPI for GI prophylaxis Mechanical prophylaxis- TEDs/SCDs. no chemical prophylaxis- patient had gross hematuria Fer Ace MD Aug 29, 2016 11:01
[2016-08-29] MEDS ORDERED: FUROSEMIDE 40 MG TAB PO ONE (12:15)
[2016-08-29] MEDS: ACETAMINOPHEN/HYDROcodone 325 MG/5 MG TAB PO PRN (14:38)
--- NOTE | 2016-08-29 16:02 | HHI.HCPN ---
Reason for visit a. To assist with evaluation and management of symptoms including: Altered mental status, weakness, cough, decreased appetite. b. To assist medical decision maker(s) with: better understanding of current medical conditions; weighing benefits/burdens of medical treatment options; making medical treatment decisions. . Subjective/Interval History Patient seen and assessed in room 710. Also present patient's daughter (Emily) and friend (Haydee). Patient is more alert than yesterday. He continues to respond to simple questions with 1-2 word answers, follows some commands. Fatigues quickly. Appetite remains poor, intake is likely inadequate. Persistent cough present. Patient is afebrile. Persistent leukocytosis. WBC 14.2 today. Follow-up chest x- ray on 08/27/16 showing large bilateral effusions and bibasilar atelectasis. Likely aspiration pneumonia secondary to dysphagia. Received copies of completed living will and DURABLE POWER OF REGISTERED NURSE POST PARTUM. Copies placed in paper chart and given hospice admission nurse. . Family/friend interactions Spoke to patient's designated health care surrogate, Angela Montes De Oca (ex- daughter in law). We discussed patient's overall decline over the past 12 months , recurrent infections and the likelihood of continued complications. She would like to transition to hospice for symptom management and end-of-life care. Discussed with [facility] admission nurse. . Advance Directives Living Will: Copy in medical record Health Care Surrogate: Copy in medical record Durable Power of Smt Machine Operator: Copy in medical record Advance Directive Specifics Date completed: September 09, 2007 . Health Care Surrogate(s): Sharita Montes De Oca, [email or web address] . Documented care wishes: Patient has a living will dated September 09, 2007 . Significant change in goals: Spoke to patient's designated health care surrogate, Angela Montes De Oca (ex- daughter in law). We discussed patient's overall decline over the past 12 months , recurrent infections and the likelihood of continued complications. She would like to transition to hospice for symptom management and end-of-life care. Discussed with [facility] admission nurse. . Objective Vital Signs Date Time Temp Pulse Resp B/P Pulse Ox O2 Delivery O2 Flow Rate FiO2 08/29/16 12:08 96.8 66 22 99/55 94 08/29/16 07:59 97.1 92 22 160/88 95 08/29/16 04:00 97.1 89 17 78/ 94 08/29/16 00:00 98.6 97 18 148/73 95 08/28/16 20:00 93 08/28/16 20:00 97.0 89 17 132/82 96 08/28/16 16:15 97.6 96 20 138/68 95 Intake & Output 08/29/16 08/29/16 07:00 19:00 Intake Total 240 ml Output Total 2100 ml 450 ml Balance -2100 ml -210 ml Intake Oral 240 ml Output Urine Total 2100 ml 450 ml # Bowel Movements 0 1 . Physical Exam CONSTITUTIONAL/GENERAL: This is a frail appearing, elderly male patient with persistent harsh cough TUBES/LINES/DRAINS: PIV, Nolen SKIN: No jaundice, rashes, or lesions. Skin temperature appropriate. Not diaphoretic. HEAD: Atraumatic. Normocephalic. EYES: Pupils equal and round and reactive. No scleral icterus. No injection or drainage. Fundi not examined. ENT: Hearing grossly normal. Nose without bleeding or purulent drainage. . NECK: Trachea midline. CARDIOVASCULAR: Regular rate and rhythm without murmurs, gallops, or rubs. No JVD. Peripheral pulses symmetric. RESPIRATORY/CHEST: Respirations symmetric, intermittently labored. Persistent cough. Scattered rhonchi GASTROINTESTINAL: Abdomen soft, non-tender, nondistended. No hepato-splenomegaly , or palpable masses. No guarding. Bowel sounds present. GENITOURINARY: Without palpable bladder distension. MUSCULOSKELETAL: Extremities without clubbing or edema. LYMPHATICS: No palpable cervical or supraclavicular adenopathy. NEUROLOGICAL: Oriented to person and place, lethargic. Responds to simple questions with 1-2 word answers, follows some commands. PSYCHIATRIC: Flat affect, lethargic. Does not appear to be anxious/agitated. . Diagnostic Tests Laboratory Laboratory Tests Test 08/27/16 08/28/16 08/29/16 06:30 06:30 08:11 White Blood Count 15.3 TH/MM3 14.6 TH/MM3 14.2 TH/MM3 (4.0-11.0) (4.0-11.0) (4.0-11.0) Red Blood Count 3.77 MIL/MM3 3.68 MIL/MM3 3.86 MIL/MM3 (4.50-5.90) (4.50-5.90) (4.50-5.90) Hemoglobin 11.3 GM/DL 11.0 GM/DL 11.6 GM/DL (13.0-17.0) (13.0-17.0) (13.0-17.0) Hematocrit 34.8 % 33.1 % 34.8 % (39.0-51.0) (39.0-51.0) (39.0-51.0) Mean Corpuscular Volume 92.2 FL 89.9 FL 90.1 FL (80.0-100.0) (80.0-100.0) (80.0-100.0) Mean Corpuscular Hemoglobin 30.0 PG 29.9 PG 29.9 PG (27.0-34.0) (27.0-34.0) (27.0-34.0) Mean Corpuscular Hemoglobin 32.5 % 33.3 % 33.2 % Concent (32.0-36.0) (32.0-36.0) (32.0-36.0) Red Cell Distribution Width 16.5 % 16.4 % 16.3 % (11.6-17.2) (11.6-17.2) (11.6-17.2) Platelet Count 270 TH/MM3 290 TH/MM3 319 TH/MM3 (150-450) (150-450) (150-450) Mean Platelet Volume 8.7 FL 8.2 FL 8.2 FL (7.0-11.0) (7.0-11.0) (7.0-11.0) Neutrophils (%) (Auto) 79.9 % 80.0 % 81.0 % (16.0-70.0) (16.0-70.0) (16.0-70.0) Lymphocytes (%) (Auto) 7.1 % 7.4 % 5.8 % (9.0-44.0) (9.0-44.0) (9.0-44.0) Monocytes (%) (Auto) 6.4 % (0.0-8.0) 7.5 % (0.0-8.0) 7.9 % (0.0-8.0) Eosinophils (%) (Auto) 4.2 % (0.0-4.0) 4.7 % (0.0-4.0) 4.7 % (0.0-4.0) Basophils (%) (Auto) 2.4 % (0.0-2.0) 0.4 % (0.0-2.0) 0.6 % (0.0-2.0) Neutrophils # (Auto) 12.2 TH/MM3 11.7 TH/MM3 11.5 TH/MM3 (1.8-7.7) (1.8-7.7) (1.8-7.7) Lymphocytes # (Auto) 1.1 TH/MM3 1.1 TH/MM3 0.8 TH/MM3 (1.0-4.8) (1.0-4.8) (1.0-4.8) Monocytes # (Auto) 1.0 TH/MM3 1.1 TH/MM3 1.1 TH/MM3 (0-0.9) (0-0.9) (0-0.9) Eosinophils # (Auto) 0.6 TH/MM3 0.7 TH/MM3 0.7 TH/MM3 (0-0.4) (0-0.4) (0-0.4) Basophils # (Auto) 0.4 TH/MM3 0.1 TH/MM3 0.1 TH/MM3 (0-0.2) (0-0.2) (0-0.2) CBC Comment DIFF FINAL DIFF FINAL DIFF FINAL Differential Comment Sodium Level 141 MEQ/L 142 MEQ/L 140 MEQ/L (136-145) (136-145) (136-145) Potassium Level 3.8 MEQ/L 3.6 MEQ/L 3.2 MEQ/L (3.5-5.1) (3.5-5.1) (3.5-5.1) Chloride Level 111 MEQ/L 111 MEQ/L 106 MEQ/L (98-107) (98-107) (98-107) Carbon Dioxide Level 19.5 MEQ/L 20.6 MEQ/L 23.6 MEQ/L (21.0-32.0) (21.0-32.0) (21.0-32.0) Anion Gap 11 MEQ/L (5-15) 10 MEQ/L (5-15) 10 MEQ/L (5-15) Blood Urea Nitrogen 15 MG/DL (7-18) 12 MG/DL (7-18) 11 MG/DL (7-18) Creatinine 0.96 MG/DL 0.93 MG/DL 1.03 MG/DL (0.60-1.30) (0.60-1.30) (0.60-1.30) Estimat Glomerular Filtration 75 ML/MIN (>89) 78 ML/MIN (>89) 69 ML/MIN (>89) Rate Random Glucose 107 MG/DL 85 MG/DL 68 MG/DL (74-106) (74-106) (74-106) Calcium Level 8.3 MG/DL 8.4 MG/DL 8.4 MG/DL (8.5-10.1) (8.5-10.1) (8.5-10.1) B-Type Natriuretic Peptide 322 PG/ML (0-100) . Result Diagram: 08/29/16 0811 08/29/16 0811 Imaging Last [address] 08/27/16 0000 Signed Impressions: Service Date/Time: Saturday, August 27, 2016 17:08 - CONCLUSION: 1. Large bilateral effusions. 2. Bibasilar atelectasis. Darryl Killian MD . Assessment and Plan Disease Oriented Problem List: (1) Cough (2) NSTEMI (non-ST elevated myocardial infarction) (3) Hypokalemia (4) Encephalopathy (5) UTI (urinary tract infection) (6) HTN (hypertension) (7) CHAY (acute kidney injury) (8) PNA (pneumonia) Symptom Scale: (1) Weakness (2) Altered mental status Comment: Patient remains intermittently confused. . (3) Decreased appetite Comment: Appetite remains poor, intake is likely inadequate. Dietary was consulted for nutrition recommendations. Patient may be a candidate for PEG tube placement. . (4) Cough Comment: Persistent harsh cough. . Pertinent Non-Medical Issues Psychosocial: Patient was born and raised in [place]. He is currently single but was 4 times per his daughter, Emily. Patient has 5 adult children (Lo, Ace, Mariza, Manjit and Emily). Patient worked for an [employer] for approximately 38 years. He moved to [place] after inheriting a house locally. 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 Spiritual: [employer] Legal: Per [place] statutes, and absence of written advanced directives healthcare proxy decision-making falls to the majority of the patient's adult children. Ethical issues impacting care: No known ethical issues impacting care at this time. . Important Contacts Angela Montes De Oca, hi-keedwhvv-qp-law/[facility]: [phone] or [phone] E-mail: [email or web address] Emily Torres, step-daughter: [phone] (CELL); [phone] (HOME); [phone] (WORK) Haydee Vale, friend: [phone] . Prognosis Patient is a 81 year old male patient who has experienced an acute decline over the past 12 months. Patient was independent and active, now requiring assist most ADLs. 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 He is currently hospitalized for medical management of NSTEMI, UTI, bacteremia and pneumonia. Patient is encephalopathic with aggressively worsening weakness. His nutritional intake remains poor. Given this patient's advanced age and overall decline in functional status over a 12 month, it is unlikely the patient will tolerate therapy and his overall prognosis is poor. . Code Status: No Code Plan * NO CODE * Decision-making: Angela Montes De Oca (ex-daughter in law) is designated as the patient's health care surrogate. * Received copies of completed living will and DURABLE POWER OF REGISTERED NURSE POST PARTUM dated September 09, 2007. Copies placed in paper chart and given hospice admission nurse. * Goals: Hospice consult pending * Hospice to resend consents via email: [email or web address] * Spoke to patient's designated health care surrogate, Angela Montes De Oca (ex- daughter in law). We discussed patient's overall decline over the past 12 months , recurrent infections and the likelihood of continued complications. She would like to transition to hospice for symptom management and end-of-life care. * Discussed with [facility] admission nurse and manager rn case, Saritha. * Symptom managementdecreased appetite: Appetite remains poor, intake is likely inadequate. Dietary was consulted for nutrition recommendations. Patient may be a candidate for PEG tube placement. Discussed risk vs. benefits of PEG tube placement with [facility]. * Palliative care contact information provided to Angela Montes De Oca, [email or web address]-if -law/[facility]. * Palliative care will continue to follow this patient throughout his hospitalization to establish trust, assist with symptom management and clarification of medical treatment goals. . Attestation To help prompt me to consider important information that might be impacting today's encounter and assessment, information from prior notes written by myself or my colleagues may have been "brought forward" into today's note. My signature on this note, however, is an attestation that I personally performed the exam, history, and/or decision-making noted today, and, unless otherwise indicated, the interactions with patient, family, and staff as well as the review of records all occurred today. I also attest that the listed assessment and stated plan reflect my best clinical judgment today based on the combination of historical information, prior notes, and today's exam/ interactions. When time spent is documented, it refers only to time spent today by the signer, or if indicated, combined time spent today by collaborating physician/nurse practitioner. . Gemini Boggs Aug 29, 2016 16:02
[2016-08-29] MEDS: ATORVASTATIN 10 MG TAB PO SCH (20:51)
[2016-08-30] VITALS: BP 121/83; PULSE 81; RESP 18; TEMP 98; O2SAT 94
[2016-08-30 04:00] VITALS: BP 119/79; PULSE 85; RESP 19; TEMP 98.5; O2SAT 95
[2016-08-30] MEDS: CARBIDOPA/LEVODOPA 25 MG/100 MG TAB PO SCH ×3 (05:11→23:01)
[2016-08-30 06:05] LABS: BICARBONATE 24.8 MEQ/L (21.0-32.0); POTASSIUM 3.9 MEQ/L (3.5-5.1)
[2016-08-30 07:50] VITALS: BP 142/76; PULSE 91; RESP 20; TEMP 96.3; O2SAT 95
[2016-08-30] MEDS: SULFAMETHOXAZOLE-TRIMETHOPRIM 400-80 MG TAB PO SCH ×2 (08:19→20:09)
[2016-08-30] MEDS: ACETAMINOPHEN/HYDROcodone 325 MG/5 MG TAB PO PRN (08:19)
[2016-08-30] MEDS: POTASSIUM CHLORIDE 20 MEQ CONTROLLED RELEASE TAB PO SCH (08:19)
[2016-08-30] MEDS: PANTOPRAZOLE SOD 40 MG DELAYED RELEASE TAB PO SCH ×2 (08:20→20:09)
[2016-08-30] MEDS: METOPROLOL TARTRATE 25 MG TAB PO SCH ×2 (08:20→20:08)
[2016-08-30] MEDS: DOCUSATE SODIUM 100 MG CAP PO SCH ×2 (08:20→20:08)
[2016-08-30] MEDS: FUROSEMIDE 40 MG/4 ML VIAL IV PUSH SCH (08:22)
[2016-08-30] MEDS: SODIUM CHLORIDE 0.9% FLUSH 5 ML FLUSH FLUSH SCH ×2 (08:31→20:10)
[2016-08-30] MEDS: POTASSIUM CHLORIDE INJ 10 MEQ in DEXT 5%-NACL 0.9% 1000 ML INJ 1,000 ML IV SCH (08:31)
--- NOTE | 2016-08-30 10:03 | HHI.PR ---
Subjective Remarks Patient in bed, satting well on room air. He appears in nad. He is sleepy and says he feels tired. not eating much . No n/v/d/c. Has some epigastric pain, did not eat breakfast yet. Family at bedside. Objective Vitals Vital Signs Date Time Temp Pulse Resp B/P Pulse Ox O2 Delivery O2 Flow Rate FiO2 08/30/16 04:00 98.5 85 19 119/79 95 08/30/16 00:00 98.0 81 18 121/83 94 08/29/16 20:00 98.9 93 17 131/68 95 08/29/16 20:00 100 08/29/16 16:20 97.6 80 20 121/69 95 08/29/16 12:08 96.8 66 22 99/55 94 I/O 08/29/16 08/29/16 08/29/16 08/30/16 08/30/16 08/30/16 07:00 15:00 23:00 07:00 15:00 23:00 Intake Total 480 ml 180 ml 60 ml Output Total 1000 ml 850 ml 1050 ml 225 ml Balance -1000 ml -370 ml -870 ml -165 ml Intake Oral 480 ml 180 ml 60 ml Output Urine Total 1000 ml 850 ml 1050 ml 225 ml # Bowel Movements 0 2 1 Result Diagram: 08/29/16 0811 08/30/16 0444 Imaging Last Impressions Chest CT 08/27/16 0000 Signed Impressions: Service Date/Time: Saturday, August 27, 2016 17:08 - CONCLUSION: 1. Large bilateral effusions. 2. Bibasilar atelectasis. Darryl Killian MD Radius/Ulna X-Ray 08/26/16 0000 Signed Impressions: Service Date/Time: Friday, August 26, 2016 20:04 - CONCLUSION: 1. No acute abnormality demonstrated of the right radius or ulna. 2. Nonspecific soft tissue swelling of the forearm, especially proximally. No radiopaque foreign body seen. 3. 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 Freddie Heredia MD Humerus X-Ray 08/26/16 0000 Signed Impressions: Service Date/Time: Friday, August 26, 2016 20:00 - CONCLUSION: 1. No abnormality seen in the right humerus. 2. Apparent soft tissue swelling distally. No radiopaque foreign body seen. 3. Suspected calcific tendinitis/bursitis of the right rotator cuff. Freddie Heredia MD Chest X-Ray 08/25/16 0000 Signed Impressions: Service Date/Time: Thursday, August 25, 2016 10:39 - CONCLUSION: Increased bibasilar opacities since the prior study. These likely represent small pleural effusions with associated volume loss and/or airspace consolidation. Freddie Grey MD Renal Ultrasound 08/21/16 0000 Signed Impressions: Service Date/Time: August 12:52 - CONCLUSION: Normal examination except for debris within the bladder and a thickened wall with a Andrea catheter of uncertain significance. Bjorn Palma MD Objective Remarks GENERAL: SKIN: Warm and dry. HEAD: Atraumatic. Normocephalic. EYES: Pupils equal and round. No scleral icterus. No injection or drainage. ENT: No nasal bleeding or discharge. Mucous membranes pink and moist. NECK: Trachea midline. No JVD. CARDIOVASCULAR: Regular rate and rhythm. RESPIRATORY: No accessory muscle use. Clear to auscultation. Breath sounds equal bilaterally. GASTROINTESTINAL: Abdomen soft, non-tender, nondistended. Hepatic and splenic margins not palpable. MUSCULOSKELETAL: Extremities without clubbing, cyanosis, or edema. No obvious deformities. NEUROLOGICAL: Awake and alert. No obvious cranial nerve deficits. Motor grossly within normal limits. Five out of 5 muscle strength in the arms and legs. Normal speech. PSYCHIATRIC: Appropriate mood and affect; insight and judgment normal. Date of Insertion: Aug 19, 2016 A/P Problem List: (1) NSTEMI (non-ST elevated myocardial infarction) ICD Code: I21.4 Status: Acute (2) UTI (urinary tract infection) ICD Code: N39.0 Status: Acute (3) CHAY (acute kidney injury) ICD Code: N17.9 Status: Acute (4) PNA (pneumonia) ICD Code: J18.9 Status: Acute (5) Hypokalemia ICD Code: E87.6 Status: Acute (6) Encephalopathy ICD Code: G93.40 Status: Acute (7) HTN (hypertension) ICD Code: I10 Status: Chronic Assessment and Plan Sepsis Pneumonia- +infiltrate left lobe. + aspiration. Continued leukocytosis New UTI- gram negative rods on UA Azactam from Gram negative coverage Zyvox for MRSA Doxycycline for atypical coverage ff cultures ID service ff seen by speech therapist- diet thickened pureed. Acute kidney injury- creatinine better- appears dry, poor po urine concentrated- andrea in place continue IVFs ff BMP Encephalopathy- resolved, from Sepsis also can be underlying dementia speech consult for cognitive evaluation CHF Edema - 2/2 IVF'S, lower IVF. On lasix. 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 Hypokalemia KCL in main IVF, monitor and replace k as need NSTEMI Hypertension BB- episodes of tachycardia Cont statins Medical management. No plan for intervention per Cardiology Parkinson's disease FTT and Deconditioning PT/OT consult. Out of bed to chair daily. Palliative consult. Hospice consult. Sacral erythema- turn patient q 2 hours, wound care team consult Dietary consult - nutrition recommendations, if oral intake will need nutritional requirement Maybe a PEG candidate, however family at bedside will think about it PPI for GI prophylaxis Mechanical prophylaxis- TEDs/SCDs. No chemical prophylaxis- patient had gross hematuria DC plan: Poss DC to Hospice. Hospice eval pending Discussed with the patient, nurse, family at bedside. Marry Walsh MD Aug 30, 2016 10:03 Marry Walsh MD Aug 30, 2016 10:03
[2016-08-30 11:50] VITALS: BP 111/76; PULSE 74; RESP 20; TEMP 95.5; O2SAT 93
[2016-08-30 20:00] VITALS: BP 129/85; PULSE 91; RESP 20; TEMP 97.4; O2SAT 94
[2016-08-30] MEDS: ATORVASTATIN 10 MG TAB PO SCH (20:08)
[2016-08-31] VITALS: BP 114/76; PULSE 86; RESP 19; TEMP 98; O2SAT 94
[2016-08-31 04:00] VITALS: BP 120/78; PULSE 88; RESP 18; TEMP 98.1; O2SAT 93
[2016-08-31] MEDS: CARBIDOPA/LEVODOPA 25 MG/100 MG TAB PO SCH ×3 (05:45→21:00)
[2016-08-31 06:43] LABS: BICARBONATE 21.9 MEQ/L (21.0-32.0); POTASSIUM 3.9 MEQ/L (3.5-5.1)
[2016-08-31] MEDS: POTASSIUM CHLORIDE INJ 10 MEQ in DEXT 5%-NACL 0.9% 1000 ML INJ 1,000 ML IV SCH (07:12)
[2016-08-31 07:50] VITALS: BP 138/70; PULSE 85; RESP 20; TEMP 97.8; O2SAT 95
[2016-08-31] MEDS: DOCUSATE SODIUM 100 MG CAP PO SCH ×2 (09:00→21:00)
[2016-08-31] MEDS: FUROSEMIDE 40 MG/4 ML VIAL IV PUSH SCH (09:00)
[2016-08-31] MEDS: POTASSIUM CHLORIDE 20 MEQ CONTROLLED RELEASE TAB PO SCH (09:00)
[2016-08-31] MEDS: PANTOPRAZOLE SOD 40 MG DELAYED RELEASE TAB PO SCH ×2 (09:00→21:00)
[2016-08-31] MEDS: METOPROLOL TARTRATE 25 MG TAB PO SCH ×3 (09:00→22:29)
[2016-08-31] MEDS: SODIUM CHLORIDE 0.9% FLUSH 5 ML FLUSH FLUSH SCH ×2 (09:00→21:00)
[2016-08-31] MEDS: SULFAMETHOXAZOLE-TRIMETHOPRIM 400-80 MG TAB PO SCH ×2 (09:00→21:00)
--- NOTE | 2016-08-31 10:11 | HHI.PR ---
Subjective Remarks Says he is having chakraborty all over. No n/v/d/c. He was eating all breakfast in the morning. No fever or chills. No cough. Feels very weak, has a very weak voice. Objective Vitals Vital Signs Date Time Temp Pulse Resp B/P Pulse Ox O2 Delivery O2 Flow Rate FiO2 08/31/16 07:50 97.8 85 20 138/70 95 08/31/16 04:00 98.1 88 18 120/78 93 08/31/16 00:00 98.0 86 19 114/76 94 08/30/16 20:00 97.4 91 20 129/85 94 08/30/16 11:50 95.5 74 20 111/76 93 I/O 08/30/16 08/30/16 08/30/16 08/31/16 08/31/16 08/31/16 07:00 15:00 23:00 07:00 15:00 23:00 Intake Total 60 ml 0 ml 120 ml 372 ml Output Total 225 ml 1550 ml 400 ml 150 ml Balance -165 ml -1550 ml -280 ml 222 ml Intake Oral 60 ml 0 ml 60 ml 60 ml IV Total 60 ml 312 ml Output Urine Total 225 ml 1550 ml 400 ml 150 ml # Bowel Movements 0 1 Result Diagram: 08/29/16 0811 08/31/16 0524 Imaging Last Impressions Chest CT 08/27/16 0000 Signed Impressions: Service Date/Time: Saturday, August 27, 2016 17:08 - CONCLUSION: 1. Large bilateral effusions. 2. Bibasilar atelectasis. Darryl Killian MD Radius/Ulna X-Ray 08/26/16 0000 Signed Impressions: Service Date/Time: Friday, August 26, 2016 20:04 - CONCLUSION: 1. No acute abnormality demonstrated of the right radius or ulna. 2. Nonspecific soft tissue swelling of the forearm, especially proximally. No radiopaque foreign body seen. 3. 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 Freddie Heredia MD Humerus X-Ray 08/26/16 0000 Signed Impressions: Service Date/Time: Friday, August 26, 2016 20:00 - CONCLUSION: 1. No abnormality seen in the right humerus. 2. Apparent soft tissue swelling distally. No radiopaque foreign body seen. 3. Suspected calcific tendinitis/bursitis of the right rotator cuff. Freddie Heredia MD Chest X-Ray 08/25/16 0000 Signed Impressions: Service Date/Time: Thursday, August 25, 2016 10:39 - CONCLUSION: Increased bibasilar opacities since the prior study. These likely represent small pleural effusions with associated volume loss and/or airspace consolidation. Freddie Grey MD Renal Ultrasound 08/21/16 0000 Signed Impressions: Service Date/Time: August 12:52 - CONCLUSION: Normal examination except for debris within the bladder and a thickened wall with a Andrea catheter of uncertain significance. Bjorn Palma MD Objective Remarks GENERAL: SKIN: Warm and dry. HEAD: Atraumatic. Normocephalic. EYES: Pupils equal and round. No scleral icterus. No injection or drainage. ENT: No nasal bleeding or discharge. Mucous membranes pink and moist. NECK: Trachea midline. No JVD. CARDIOVASCULAR: Regular rate and rhythm. RESPIRATORY: No accessory muscle use. Clear to auscultation. Breath sounds equal bilaterally. GASTROINTESTINAL: Abdomen soft, non-tender, nondistended. Hepatic and splenic margins not palpable. MUSCULOSKELETAL: Extremities without clubbing, cyanosis, or edema. No obvious deformities. NEUROLOGICAL: Awake and alert. No obvious cranial nerve deficits. Motor grossly within normal limits. Five out of 5 muscle strength in the arms and legs. Normal speech. PSYCHIATRIC: Appropriate mood and affect; insight and judgment normal. Date of Insertion: Aug 19, 2016 A/P Problem List: (1) NSTEMI (non-ST elevated myocardial infarction) ICD Code: I21.4 Status: Acute (2) UTI (urinary tract infection) ICD Code: N39.0 Status: Acute (3) CHAY (acute kidney injury) ICD Code: N17.9 Status: Acute (4) PNA (pneumonia) ICD Code: J18.9 Status: Acute (5) Hypokalemia ICD Code: E87.6 Status: Acute (6) Encephalopathy ICD Code: G93.40 Status: Acute (7) HTN (hypertension) ICD Code: I10 Status: Chronic Assessment and Plan Sepsis Pneumonia- +infiltrate left lobe. + aspiration. Continued leukocytosis New UTI- gram negative rods on UA Azactam from Gram negative coverage Zyvox for MRSA Doxycycline for atypical coverage ff cultures ID service ff seen by speech therapist- diet thickened pureed. Acute kidney injury- creatinine better- appears dry, poor po urine concentrated- andrea in place continue IVFs ff BMP Encephalopathy- resolved, from Sepsis also can be underlying dementia speech consult for cognitive evaluation CHF Edema - 2/2 IVF'S, lower IVF. On lasix. 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 Hypokalemia KCL in main IVF, monitor and replace k as need NSTEMI Hypertension BB- episodes of tachycardia Cont statins Medical management. No plan for intervention per Cardiology Parkinson's disease FTT and Deconditioning PT/OT consult. Out of bed to chair daily. Palliative consult. Hospice consult. Sacral erythema- turn patient q 2 hours, wound care team consult Dietary consult - nutrition recommendations, if oral intake will need nutritional requirement Maybe a PEG candidate, however family at bedside will think about it PPI for GI prophylaxis Mechanical prophylaxis- TEDs/SCDs. No chemical prophylaxis- patient had gross hematuria DC plan: Poss DC to Hospice. Hospice eval pending Discussed with the patient, nurse, case management. Plan to DC to SNF with hospice. [id number] signed. Marry Walsh MD Aug 31, 2016 10:11
[2016-08-31] MEDS ORDERED: BACT400T PO (10:16)
[2016-08-31] MEDS ORDERED: NORC5TAB PO (10:16)
[2016-08-31 11:30] VITALS: BP 128/80; PULSE 87; RESP 20; TEMP 99.7; O2SAT 97
[2016-08-31 15:50] VITALS: BP 135/74; PULSE 85; RESP 20; TEMP 99.3; O2SAT 98
[2016-08-31 20:00] VITALS: BP 98/65; PULSE 96; RESP 19; TEMP 96.8; O2SAT 93
[2016-08-31] MEDS: ATORVASTATIN 10 MG TAB PO SCH (21:00)
[2016-09-01] VITALS (7 sets, daily range): BP systolic 112–136; BP diastolic 71–86; PULSE 63–150; RESP 18–26; TEMP 97–99.7; O2SAT 93–98
[2016-09-01] MEDS: CARBIDOPA/LEVODOPA 25 MG/100 MG TAB PO SCH ×4 (05:33→21:01)
[2016-09-01] MEDS: PANTOPRAZOLE SOD 40 MG DELAYED RELEASE TAB PO SCH ×2 (09:00→20:58)
[2016-09-01] MEDS: SULFAMETHOXAZOLE-TRIMETHOPRIM 400-80 MG TAB PO SCH ×2 (09:53→20:58)
[2016-09-01] MEDS: POTASSIUM CHLORIDE 20 MEQ CONTROLLED RELEASE TAB PO SCH (09:53)
[2016-09-01] MEDS: FUROSEMIDE 40 MG/4 ML VIAL IV PUSH SCH (09:54)
[2016-09-01] MEDS: METOPROLOL TARTRATE 25 MG TAB PO SCH ×2 (09:54→20:55)
[2016-09-01] MEDS: DOCUSATE SODIUM 100 MG CAP PO SCH ×2 (09:55→19:31)
[2016-09-01] MEDS: SODIUM CHLORIDE 0.9% FLUSH 5 ML FLUSH FLUSH SCH ×2 (09:55→20:59)
--- NOTE | 2016-09-01 10:48 | HHI.DS ---
Discharge Summary Admission Date Aug 19, 2016 at 14:40 Discharge Date: Sep 01, 2016 Admitting Diagnosis weakness (1) NSTEMI (non-ST elevated myocardial infarction) (2) UTI (urinary tract infection) (3) CHAY (acute kidney injury) (4) PNA (pneumonia) (5) Hypokalemia (6) Encephalopathy (7) HTN (hypertension) Brief History 80 Y CM. GENERAL DECLINE OVER THE LAST YEAR. AT [facility] NOW. RECURRENT BRONCHITIS LAST MONTH. FAILED SNF ABX TREATMENT. PT WITH INCREASED GENERAL WEAKNESS AND SENT TO ER AND FOUND WITH HCAP AND NSTEMI. I WAS CALLED BY THE ER MD FOR ADMIT. PT OBVIOUSLY WEAKER THAN USUAL. C/O COUGH AND CONGESTION AND ASKING FOR COUGH SYRUP SO HE CAN DC HOME. CBC/BMP: 08/29/16 0811 08/31/16 0524 Significant Findings Laboratory Tests Test 08/30/16 08/31/16 04:44 05:24 Estimat Glomerular Filtration 56 ML/MIN (>89) 62 ML/MIN (>89) Rate PE at Discharge GENERAL: SKIN: Warm and dry. HEAD: Atraumatic. Normocephalic. EYES: Pupils equal and round. No scleral icterus. No injection or drainage. ENT: No nasal bleeding or discharge. Mucous membranes pink and moist. NECK: Trachea midline. No JVD. CARDIOVASCULAR: Regular rate and rhythm. RESPIRATORY: No accessory muscle use. Clear to auscultation. Breath sounds equal bilaterally. GASTROINTESTINAL: Abdomen soft, non-tender, nondistended. Hepatic and splenic margins not palpable. MUSCULOSKELETAL: Extremities without clubbing, cyanosis, or edema. No obvious deformities. NEUROLOGICAL: Awake and alert. No obvious cranial nerve deficits. Motor grossly within normal limits. 1 out of 5 muscle strength in the arms and legs. Normal speech. PSYCHIATRIC: Appropriate mood and affect; insight and judgment normal. Hospital Course 81 y CM, SNF RES, ADMIT WITH - Sepsis Pneumonia- +infiltrate left lobe. + aspiration. Continued leukocytosis New UTI- gram negative rods on UA Azactam from Gram negative coverage Zyvox for MRSA Doxycycline for atypical coverage ff cultures ID service ff seen by speech therapist- diet thickened pureed. Acute kidney injury- creatinine better- appears dry, poor po urine concentrated- andrea in place continue IVFs ff BMP Encephalopathy- resolved, from Sepsis also can be underlying dementia speech consult for cognitive evaluation CHF Edema - 2/2 IVF'S, lower IVF. On lasix. 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 Hypokalemia KCL in main IVF, monitor and replace k as need NSTEMI Hypertension BB- episodes of tachycardia Cont statins Medical management. No plan for intervention per Cardiology Parkinson's disease FTT and Deconditioning PT/OT consult. Out of bed to chair daily. Palliative consult. Hospice consult. Sacral erythema- turn patient q 2 hours, wound care team consult Dietary consult - nutrition recommendations, if oral intake will need nutritional requirement No chemical prophylaxis- patient had gross hematuria Discussed with the patient, nurse, case management. Plan to DC to SNF with hospice. [id number] signed. Pt Condition on Discharge: Deteriorating Discharge Disposition: Hospice/ Home Discharge Instructions DIET: Follow Instructions for: Heart Healthy Diet Speech Therapy-Diet Recommenda: Mechanical Soft, [place] Thickened Liquids Activities you can perform: See Additionl Instruction Additional Activity Instructio: BEDREST Follow up Referrals: Cardiology - 1 Week PCP Follow-up - 3-5 Days Urology - 1 Week New Medications: Hydrocodone-Acetaminophen ([place]) 5-325 mg Tab 1 TAB PO Q4H PRN PAIN #30 Ref 0 TAB Sulfamethoxazole-Trimethoprim (Bactrim) 400-80 Mg Tab 1 TAB PO Q12HR infection #10 TAB Continued Medications: Acetaminophen (Tylenol) 325 Mg Cap 325 MG PO Q6H PRN PAIN SCALE 1 TO 2 Ref 0 CAP Atorvastatin (Atorvastatin) 10 Mg Tab 10 MG PO HS Cholesterol Management #30 Ref 0 TAB Carbidopa-Levodopa (Carbidopa-Levodopa) 25-100 Mg Tab 1 TAB PO Q8HR Parkinson Disease Mgmt #90 Ref 0 TAB Cholecalciferol (D3) 1,000 Unit Cap Dextromethorphan-Guaifenesin (Robitussin Cough Chest Congestion) 10-200 Mg Cap 1 CAP PO Q4H PRN CHEST CONGESTION AND/OR COUGH Ref 0 CAP Docusate Sodium (Dulcolax Stool Softener) 100 Mg Cap 100 MG PO BID Prevent Constipation #60 Ref 0 CAP Magnesium Hydroxide Liq (Milk of Magnesia Liq) 400 Mg/5 Ml Susp 30 ML PO ONCE Indigestion #30 Ref 0 ML Multiple Vitamin (Multi-Vitamin Daily) 1 Tab Tab 1 TAB PO DAILY Nutritional Supplement Ref 0 TAB Nystatin Topical (Nystatin Topical) 100,000 unit/gm Cream 1 APPLIC TOPICAL Q6HR Infection #15 Ref 0 GM Pantoprazole (Protonix) 40 Mg Tab 40 MG PO BID Reflux #30 Ref 0 TAB Discontinued Medications: Clopidogrel (Clopidogrel) 75 Mg Tab 75 MG PO DAILY Blood Clot Prevention #30 Ref 0 TAB Fer Ace MD Sep 01, 2016 10:48
--- NOTE | 2016-09-01 10:48 | HHI.DCPOC ---
Discharge Care Plan Diagnosis: (1) Hematuria (2) Cough (3) Weakness (4) Altered mental status (5) BPH (benign prostatic hyperplasia) (6) Encephalopathy (7) UTI (urinary tract infection) (8) HTN (hypertension) (9) NSTEMI (non-ST elevated myocardial infarction) (10) CHAY (acute kidney injury) (11) PNA (pneumonia) Goals to Promote Your Health * To prevent worsening of your condition and complications * To maintain your health at the optimal level Directions to Meet Your Goals Take your medications as prescribed Follow your dietary instruction Follow activity as directed Keep your appointments as scheduled Take your immunizations and boosters as scheduled If your symptoms worsen call your PCP, if no PCP go to Urgent Care Center or Emergency Room Smoking is Dangerous to Your Health. Avoid second hand smoke Call the 24-hour hour crisis hotline for domestic abuse at Fer Ace MD Sep 01, 2016 10:48
[2016-09-01] MEDS: ACETAMINOPHEN 325 MG TAB PO PRN (20:55)
[2016-09-01] MEDS: ATORVASTATIN 10 MG TAB PO SCH (20:58)
[2016-09-01] MEDS ORDERED: BACLOFEN 10 MG TAB PO PRN (22:30)
[2016-09-02] VITALS: BP 115/67; PULSE 81; RESP 22; TEMP 98.2; O2SAT 97
[2016-09-02 04:00] VITALS: BP 135/76; PULSE 80; RESP 16; TEMP 97.2; O2SAT 97
[2016-09-02] MEDS: CARBIDOPA/LEVODOPA 25 MG/100 MG TAB PO SCH ×2 (06:09→15:03)
[2016-09-02 08:00] VITALS: BP 133/65; PULSE 81; RESP 16; TEMP 97.6; O2SAT 94
[2016-09-02] MEDS: DOCUSATE SODIUM 100 MG CAP PO SCH (09:00)
--- NOTE | 2016-09-02 09:24 | HHI.FPPN ---
Subjective Remarks intract hiccups delay in dc d/t POA difficulty making decisions d/w RN Objective Vitals Vital Signs Date Time Temp Pulse Resp B/P Pulse Ox O2 Delivery O2 Flow Rate FiO2 09/02/16 08:00 97.6 81 16 133/65 94 09/02/16 04:00 97.2 80 16 135/76 97 09/02/16 00:00 98.2 81 22 115/67 97 09/01/16 23:13 98.2 09/01/16 20:00 99.7 87 18 136/81 94 09/01/16 15:47 99.3 150 20 115/77 95 09/01/16 12:00 98.7 63 20 112/73 98 I/O 09/01/16 09/01/16 09/01/16 09/02/16 09/02/16 09/02/16 07:00 15:00 23:00 07:00 15:00 23:00 Intake Total 154 ml 714 ml 400 ml Output Total 150 ml 750 ml 500 ml 550 ml Balance 4 ml -36 ml -100 ml -550 ml Intake Oral 40 ml 714 ml 400 ml IV Total 114 ml Output Urine Total 150 ml 750 ml 500 ml 550 ml # Bowel Movements 1 1 Result Diagram: 08/29/16 0811 08/31/16 0524 Objective Remarks GENERAL: SKIN: Warm and dry. HEAD: Atraumatic. Normocephalic. EYES: Pupils equal and round. No scleral icterus. No injection or drainage. ENT: No nasal bleeding or discharge. Mucous membranes pink and moist. NECK: Trachea midline. No JVD. CARDIOVASCULAR: Regular rate and rhythm. RESPIRATORY: improved BS's, slight ronchi bibasilar, GASTROINTESTINAL: Abdomen soft, non-tender, nondistended. Hepatic and splenic margins not palpable. MUSCULOSKELETAL: Extremities without clubbing, cyanosis, or edema. No obvious deformities. NEUROLOGICAL: AO X 3. No obvious cranial nerve deficits. Motor grossly within normal limits. 1 out of 5 muscle strength in the arms and legs. Normal speech. PSYCHIATRIC: Appropriate mood and affect; insight and judgment normal. Medications and IVs Current Medications Medications (Trade) Dose Ordered Sig/Nai Route Start Time Stop Time Status Last Admin (Tylenol) 325 mg Q6H PRN PO 08/19/16 17:30 (Lipitor) 10 mg HS PO 08/19/16 21:00 09/01/16 20:58 (Sinemet 25-100 Mg) 1 tab Q8HR PO 08/19/16 22:00 09/02/16 06:09 (Plavix) 75 mg DAILY PO 08/20/16 09:00 Hold 08/20/16 08:20 (Colace) 100 mg BID PO 08/19/16 21:00 09/01/16 09:55 (Protonix) 40 mg BID PO 08/19/16 21:00 09/01/16 20:58 (Robitussin Dm 200-20 Mg/10 ml Liq) 10 ml Q4H PRN PO 08/19/16 18:00 08/22/16 21:24 (NS Flush) 2 ml UNSCH PRN FLUSH 08/19/16 17:30 (NS Flush) 2 ml BID FLUSH 08/19/16 21:00 09/01/16 20:59 (Tylenol) 650 mg Q4H PRN PO 08/19/16 17:30 09/01/16 20:55 (Zofran Inj) 4 mg Q6H PRN IVP 08/19/16 17:30 (Dulcolax Supp) 10 mg DAILY PRN NC 08/19/16 17:30 (Milk Of Magnesia Liq) 30 ml Q12H PRN PO 08/19/16 17:30 (Ambien) 5 mg HS PRN PO 08/19/16 17:30 08/22/16 01:11 (Heparin Inj) 5,000 units Q12H SQ 08/19/16 18:00 Hold 08/20/16 17:46 (Narcan Inj) 0.4 mg UNSCH PRN IV 08/19/16 17:30 ([place] 5-325 Mg) 1 tab Q4H PRN PO 08/19/16 17:45 08/30/16 08:19 (Catapres) 0.1 mg Q6H PRN PO 08/19/16 17:45 (Vasotec Inj) 2.5 mg Q6H PRN IV PUSH 08/19/16 17:45 Metoprolol Tartrate 12.5 mg 12.5 mg Q12HR PO 08/23/16 21:00 09/01/16 20:55 (KCl Inj/D5W-NS 1000 ml Inj) 1,005 ml @ 5 mls/hr Q24H IV 08/23/16 20:00 08/31/16 07:12 (Lasix Inj) 40 mg DAILY IV PUSH 08/28/16 13:15 09/01/16 09:54 (Bactrim 400-80 Mg) 1 tab Q12HR PO 08/28/16 21:00 09/02/16 20:59 09/01/16 20:58 (KCl) 20 meq DAILY PO 08/30/16 09:00 09/01/16 09:53 (Lioresal) 10 mg Q6H PRN PO 09/01/16 22:30 Urinary Catheter: Yes Assessment to: Continue Andrea insert reason: Prolonged Immobilization Date of Insertion: Aug 19, 2016 A/P Assessment and Plan Sepsis Pneumonia- +infiltrate left lobe. + aspiration. Continued leukocytosis CHRONIC ANDREA New UTI- gram negative rods on UA Azactam from Gram negative coverage Zyvox for MRSA Doxycycline for atypical coverage ff cultures ID service ff seen by speech therapist- diet thickened pureed. Acute kidney injury- creatinine better- appears dry, poor po urine concentrated- andrea in place continue IVFs ff BMP Hiccups, baclofen prn Encephalopathy- resolved, from Sepsis also can be underlying dementia speech consult for cognitive evaluation CHF EDEMA- D/T IVF'S, NEG XR'S. LOWER IVF'S. START LASIX. 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 no plan for intervention per Cardiology Parkinson's disease Sacral erythema- turn patient q 2 hours wound care team consult Dietary consult - nutrition recommendations doubt if oral intake will need nutritional requirement maybe a PEG candidate PPI for GI prophylaxis Mechanical prophylaxis- TEDs/SCDs. no chemical prophylaxis- patient had gross hematuria FTT and Deconditioning PT/OT consult. Out of bed to chair daily. Palliative consult. Hospice consult. Appears to be a temporary delay in POA signing papers. Fer Ace MD Sep 02, 2016 09:24
[2016-09-02] MEDS: METOPROLOL TARTRATE 25 MG TAB PO SCH (09:29)
[2016-09-02] MEDS: POTASSIUM CHLORIDE 20 MEQ CONTROLLED RELEASE TAB PO SCH (09:29)
[2016-09-02] MEDS: SULFAMETHOXAZOLE-TRIMETHOPRIM 400-80 MG TAB PO SCH (09:29)
[2016-09-02] MEDS: SODIUM CHLORIDE 0.9% FLUSH 5 ML FLUSH FLUSH SCH (09:30)
[2016-09-02] MEDS: FUROSEMIDE 40 MG/4 ML VIAL IV PUSH SCH (09:30)
[2016-09-02] MEDS: PANTOPRAZOLE SOD 40 MG DELAYED RELEASE TAB PO SCH (09:36)
[2016-09-02 12:00] VITALS: BP 123/100; PULSE 103; RESP 24; TEMP 100; O2SAT 93
[2016-09-02] MEDS: ACETAMINOPHEN 325 MG TAB PO PRN (15:05)
== END 2016-09-02 15:35 | DRG 871 ==
LOC: NEPE 12:55 → OBSVTOIN 14:40 → INTOOBSV 14:40 → NEDA 14:40 → NEDH 19:20 → NEPGCP 23:00 → HOCA 08-24 01:36
PROVIDERS: ADMIT Family Medicine; ATTEND Family Medicine
PROC: 0T2BX0Z Change Drainage Device in Bladder, External Approach (ICD-10-PCS; principal; 2016-08-21)
PROC: 3C1ZX8Z Irrigation of Indwelling Device using Irrigating Substance, External Approach (ICD-10-PCS; 2016-08-21)
DX: A41.9 Sepsis, unspecified organism (principal); I21.4 Non-ST elevation (NSTEMI) myocardial infarction; J69.0 Pneumonitis due to inhalation of food and vomit; N17.9 Acute kidney failure, unspecified; G93.40 Encephalopathy, unspecified; J18.9 Pneumonia, unspecified organism; R13.10 Dysphagia, unspecified; N30.41 Irradiation cystitis with hematuria; N39.0 Urinary tract infection, site not specified; J98.11 Atelectasis; G20 Parkinson's disease; I10 Essential (primary) hypertension; B96.4 Proteus (mirabilis) (morganii) as the cause of diseases classified elsewhere; R06.6 Hiccough; E87.6 Hypokalemia; I50.9 Heart failure, unspecified; R53.1 Weakness; Y95 Nosocomial condition; L53.9 Erythematous condition, unspecified; M11.20 Other chondrocalcinosis, unspecified site; I45.10 Unspecified right bundle-branch block; Z51.5 Encounter for palliative care; R62.7 Adult failure to thrive; Z66 Do not resuscitate; K21.9 Gastro-esophageal reflux disease without esophagitis; Z85.46 Personal history of malignant neoplasm of prostate; Z92.3 Personal history of irradiation; Z86.73 Personal history of transient ischemic attack (TIA), and cerebral infarction without residual deficits; Z88.1 Allergy status to other antibiotic agents
CPT/HCPCS: 51702; 71010; 71020; 71260; 73060; 73090; 76775; 76937; 80048; 80053; 81001; 82550; 82552; 83605; 83735; 83880; 84100; 84484; 85025; 85610; 85730; 86403; 87040; 87070; 87077; 87086; 87186; 87205; 87449; 87804; 93005; 96360; G8987-GP; G8988-GO; G8988-GP; G8989-GO; G8996-GN; G8997-GN; G8998-GN; J1644; J1940; J2020; J3370; J3480; J7030; J7040; J7042; J7050; Q9967